=== PATIENT | female | born 1990 | race Caucasian/White ===

== ENCOUNTER 2017-11-08 16:00 | Outpatient (RCR) | payer OTHER, SELFPAY | END 2017-11-16 23:59 | LOC: NS 16:00 | PROVIDERS: Family Provider Family Medicine; PCP Family Medicine; Visit Provider Family Medicine | DX: E66.9 Obesity, unspecified (principal); Z68.29 Body mass index [BMI] 29.0-29.9, adult; Z71.3 Dietary counseling and surveillance | CPT/HCPCS: 97803 ==

== ENCOUNTER 2017-11-25 08:30 | Outpatient (RCR) | payer OTHER, SELFPAY | END 2017-12-14 23:59 | LOC: NS 08:30 | PROVIDERS: Family Provider Family Medicine; PCP Family Medicine; Visit Provider Family Medicine | DX: E66.9 Obesity, unspecified (principal); Z68.29 Body mass index [BMI] 29.0-29.9, adult; Z71.3 Dietary counseling and surveillance | CPT/HCPCS: 97803 ==

== ENCOUNTER 2018-01-10 17:25 | Outpatient (RCR) | payer OTHER, SELFPAY | END 2018-01-14 23:59 | LOC: NS 17:25 | PROVIDERS: Family Provider Family Medicine; PCP Family Medicine; Visit Provider Family Medicine | DX: E66.9 Obesity, unspecified (principal); Z68.29 Body mass index [BMI] 29.0-29.9, adult; Z71.3 Dietary counseling and surveillance | CPT/HCPCS: 97803 ==

== ENCOUNTER 2018-01-24 16:15 | Outpatient (RCR) | payer OTHER, SELFPAY | END 2018-02-13 23:59 | LOC: NS 16:15 | PROVIDERS: Family Provider Family Medicine; PCP Family Medicine; Visit Provider Family Medicine | DX: E66.9 Obesity, unspecified (principal); Z68.29 Body mass index [BMI] 29.0-29.9, adult; Z71.3 Dietary counseling and surveillance | CPT/HCPCS: 97803 ==

== ENCOUNTER 2018-02-15 17:34 | Outpatient (RCR) | payer OTHER, SELFPAY | END 2018-03-16 23:59 | LOC: NS 17:34 | PROVIDERS: Family Provider Family Medicine; PCP Family Medicine; Visit Provider Family Medicine | DX: E66.9 Obesity, unspecified (principal); Z68.29 Body mass index [BMI] 29.0-29.9, adult; Z71.3 Dietary counseling and surveillance | CPT/HCPCS: 97803 ==

== ENCOUNTER → 2018-04-17 11:42 | Outpatient (CLI) | payer OTHER, SELFPAY ==
[2018-04-17 15:59] LABS: Chlamydia Trachomatis by PCR Negative (Negative); Neisserai gonorrhoeae by PCR Negative (Negative); Probe Check PASS; Sample Adequacy Control PASS; Specimen Processing Control PASS
[2018-04-24 10:09] LABS: HPV Reflexed? NOT INDICATED
== END ==
PROVIDERS: Visit Provider Obstetrics & Gynecology
DX: Z12.4 Encounter for screening for malignant neoplasm of cervix (principal); Z11.3 Encounter for screening for infections with a predominantly sexual mode of transmission; Z12.72 Encounter for screening for malignant neoplasm of vagina
CPT/HCPCS: 87491; 87591; 88175; G0145

== ENCOUNTER → 2019-01-26 07:33 | Outpatient (CLI) | payer OTHER, SELFPAY ==
[2019-01-26 08:46] LABS: Absolute Lymphocyte Count 3.74 X10^3/ul (0.83-4.51); Absolute Neutrophil Count 5.8 X10^3/uL (2.0-7.7); Basophil# 0.02 X10^3/uL; Basophil% 0.2 % (0-1); Eosinophil# 0.27 X10^3/uL; Eosinophils% 2.5 % (0-5); Hematocrit 40.5 % (37-47); Hemoglobin 13.6 g/dl (12.0-15.0); Lymphocyte # 3.74 X10^3/ul (4.0); Lymphocyte % 35.2 % (19-41); Mean Corp Hgb Conc 33.6 g/gl (32-36); Mean Corpuscular Hgb 29.6 pg (27.0-32.0); Mean Corpuscular Volume 88.2 fL (81-99); Mean Platelet Vol. 9.1 fl (6.2-12.0); Monocyte# 0.78 X10^3/uL; Monocyte% 7.4 % (0-10); Neutrophil # 5.79 X10^3/uL (2.7-7.7); Neutrophil % 54.6 % (47-70); POSITIVE COUNT NO; POSITIVE DIFFERENTIAL NO; POSITIVE MORPHOLOGY NO; Platelet Count 267 K/mm3 (150-450); RBC Distribution Width CV 12.6 % (11.6-14.6); RBC Distribution Width SD 40.2 fl (35.1-43.9); Red Blood Count 4.59 M/mm3 (4.2-5.4); White Blood Count 10.6 K/mm3 (4.4-11.0)
[2019-01-26 09:15] LABS: Hemoglobin A1c 5.4 % (4.2-6.3)
[2019-01-26 09:21] LABS: ALB/GLOB Ratio 0.9 RATIO (0.9-2.4); AST(SGOT) 24 U/L (15-37); Alanine Aminotransfer ALT/SGPT 20 U/L (13-56); Albumin, Serum 3.3 g/dL (3.2-5.0); Alkaline Phosphatase 108 U/L (45-117); Anion Gap 8 (5-15); BUN 12 mg/dL (7-18); BUN/Creat Ratio 17.7 RATIO (10-20); Calcium,Total 8.6 mg/dL (8.5-10.1); Chloride 109 mmol/L (98-107); Cholesterol 196 mg/dL (200); Creatinine, Serum 0.68 mg/dL (0.55-1.02); EST Glomerular Filtration Rate 110 mL/min (>60); Est Glom Filt Rate - Afr Amer 133 mL/min (>60); Globulin 3.8 g/dL (2.2-4.2); Glucose 89 mg/dL (74-106); High Density Lipoprotein 61 mg/dL; Potassium 4.1 mmol/L (3.5-5.1); Protein, Total 7.1 g/dL (6.4-8.2); Sodium Level 141 mmol/L (136-145); Thyroid Stim Hormone (TSH) 2.43 uIU/mL (0.358-3.74); Triglycerides 119 mg/dL; Very Low Density Lipoprotein 24 mg/dL (5-40)
== END ==
PROVIDERS: Family Provider Family Medicine; PCP Family Medicine
DX: R53.82 Chronic fatigue, unspecified (principal); E66.9 Obesity, unspecified
CPT/HCPCS: 36415; 80053; 80061; 83036; 84443; 85025

== ENCOUNTER → 2019-04-18 16:56 | Outpatient (CLI) | payer OTHER, SELFPAY ==
[2019-04-12 06:47] VITALS: BMI 25.8
[2019-04-18 20:13] LABS: Chlamydia Trachomatis by PCR Negative (Negative); Neisserai gonorrhoeae by PCR Negative (Negative); Probe Check PASS; Sample Adequacy Control PASS; Specimen Processing Control PASS
[2019-04-25 12:39] LABS: HPV APTIMA, High Risk Negative (Negative)
[2019-05-18 13:48] LABS: HPV Reflexed? YES, CHARGE PATIENT
== END ==
PROVIDERS: Family Provider Family Medicine; PCP Family Medicine; Visit Provider Obstetrics & Gynecology
DX: Z12.4 Encounter for screening for malignant neoplasm of cervix (principal); Z11.3 Encounter for screening for infections with a predominantly sexual mode of transmission
CPT/HCPCS: 87491; 87591; 87624; 88175; G0145

== ENCOUNTER → 2019-06-29 17:50 | Outpatient (CLI) | payer OTHER, SELFPAY ==
[2019-04-12 06:47] VITALS: BMI 25.8
[2019-06-29 19:46] LABS: Chlamydia Trachomatis by PCR Negative (Negative); Neisserai gonorrhoeae by PCR Negative (Negative); Probe Check PASS; Sample Adequacy Control PASS; Specimen Processing Control PASS
== END ==
PROVIDERS: Family Provider Family Medicine; PCP Family Medicine; Referring Provider Obstetrics & Gynecology; Visit Provider Obstetrics & Gynecology
DX: Z11.3 Encounter for screening for infections with a predominantly sexual mode of transmission (principal)
CPT/HCPCS: 87491; 87591

== ENCOUNTER → 2019-09-17 12:28 | Outpatient (CLI) | payer OTHER, SELFPAY ==
[2019-04-12 06:47] VITALS: BMI 25.8
[2019-09-17 12:46] LABS: Absolute Lymphocyte Count 3.46 X10^3/uL (0.83-4.51); Absolute Neutrophil Count 4.6 X10^3/uL (2.0-7.7); Basophil# 0.02 X10^3/uL; Basophil% 0.2 % (0-1); Eosinophil# 0.21 X10^3/uL; Eosinophils% 2.3 % (0-5); Hematocrit 40.7 % (37-47); Hemoglobin 13.5 g/dL (12.0-15.0); Lymphocyte # 3.46 X10^3/ul (4.0); Lymphocyte % 38.3 % (19-41); Mean Corp Hgb Conc 33.2 g/dL (32-36); Mean Corpuscular Hgb 28.8 pg (27.0-32.0); Mean Platelet Vol. 8.7 fl (6.2-12.0); Monocyte# 0.76 X10^3/uL; Monocyte% 8.4 % (0-10); NRBC Flagged by Analyzer 0 % (0-5); Neutrophil # 4.56 X10^3/uL (2.7-7.7); Neutrophil % 50.6 % (47-70); Platelet Count 268 K/mm3 (150-450); RBC Distribution Width CV 11.7 % (11.6-14.6); RBC Distribution Width SD 36.9 fl (35.1-43.9); Red Blood Count 4.68 M/mm3 (4.2-5.4)
[2019-09-17 13:01] LABS: AST(SGOT) 28 U/L (15-37); Alanine Aminotransfer ALT/SGPT 20 U/L (13-56); Albumin, Serum 3.9 g/dL (3.2-5.0); Alkaline Phosphatase 137 U/L (45-117); Anion Gap 6 (5-15); BUN 13 mg/dL (7-18); BUN/Creat Ratio 14.2 RATIO (10-20); Calcium,Total 9.1 mg/dL (8.5-10.1); Chloride 108 mmol/L (98-107); Creatinine, Serum 0.92 mg/dL (0.55-1.02); EST Glomerular Filtration Rate 77 mL/min (>60); Est Glom Filt Rate - Afr Amer 93 mL/min (>60); Globulin 3.9 g/dL (2.2-4.2); Glucose 87 mg/dL (74-106); Lipase 114 U/L (73-393); Potassium 3.6 mmol/L (3.5-5.1); Protein, Total 7.8 g/dL (6.4-8.2); Sodium Level 139 mmol/L (136-145)
== END ==
PROVIDERS: Family Provider Family Medicine; PCP Family Medicine; Referring Provider Family Medicine; Visit Provider Family Medicine
DX: R10.9 Unspecified abdominal pain (principal); R11.2 Nausea with vomiting, unspecified
CPT/HCPCS: 36415; 80053; 83690; 85025

== ENCOUNTER → 2019-09-18 16:05 | Outpatient (CLI) | payer OTHER, SELFPAY ==
[2019-04-12 06:47] VITALS: BMI 25.8
--- NOTE | 2019-09-18 16:07 | US_ITS ---
STUDY: ABDOMINAL ULTRASOUND - RIGHT UPPER QUADRANT REASON FOR VISIT: Female, 29 years old epigastric and periumbilical pain 1-2 weeks. TECHNIQUE: Ultrasound evaluation of the right upper quadrant was performed with real-time and static luna-scale imaging. TECHNICAL QUALITY: Adequate. COMPARISON: None. FINDINGS: Liver: The liver measures 13.4 cm. Increased echogenicity of the liver parenchyma due to fatty infiltration. The bile ducts are within normal limits. There is hepatic color flow. The direction of portal flow is hepatopetal. There is no demonstrated mass lesion. Gallbladder: Normal distended gallbladder. The gallbladder wall measures 1.9 mm. There is a negative sonographic Rico's sign. There is no pericholecystic fluid. There are no gallstones. Common Bile Duct (C.B.D.): The common bile duct measures 2.7 mm. Pancreas: Normal size of the head, body and tail of the pancreas. There is normal echogenicity of the pancreas. There is no demonstrated pancreatic mass or cyst. The pancreatic duct is not dilated. Right Kidney: Normal size of the right kidney. The right kidney measures 11.6 x 5.0 x 4.7 cm. Normal renal cortex. The right cortex measures 1.2 cm. There is no demonstrated renal mass or cyst. There is no right hydronephrosis. US/Abdomen Limited IMPRESSION: 1. Mild diffuse hepatic pseudoptosis. 2. Normal ultrasound of the gallbladder, pancreas and right kidney. Electronically Signed: Zach Guy MD at 16:22 EST , Service support ,
== END ==
PROVIDERS: Family Provider Family Medicine; PCP Family Medicine; Referring Provider Family Medicine; Visit Provider Family Medicine
DX: R10.9 Unspecified abdominal pain (principal); R11.2 Nausea with vomiting, unspecified; R74.8 Abnormal levels of other serum enzymes
CPT/HCPCS: 76705

== ENCOUNTER → 2020-06-09 16:48 | Outpatient (CLI) | payer OTHER, SELFPAY ==
[2020-06-09 11:15] VITALS: BMI 25.8
[2020-06-12 03:06] LABS: Chlamydia By Nucleic Acid AMP Negative (Negative)
[2020-06-12 08:32] LABS: Gonococcus By Nucleic Acid AMP Negative (Negative)
== END ==
PROVIDERS: PCP Family Medicine; Visit Provider Obstetrics & Gynecology
DX: Z11.3 Encounter for screening for infections with a predominantly sexual mode of transmission (principal)
CPT/HCPCS: 87491; 87591

== ENCOUNTER → 2021-03-13 07:55 | Outpatient (CLI) | payer OTHER, SELFPAY ==
[2020-06-09 11:15] VITALS: BMI 25.8
[2021-03-13 08:52] LABS: Absolute Lymphocyte Count 3.32 X10^3/uL (0.83-4.51); Absolute Neutrophil Count 6.2 X10^3/uL (2.0-7.7); Basophil# 0.05 X10^3/uL; Basophil% 0.5 % (0-1); Eosinophil# 0.31 X10^3/uL; Hematocrit 41.9 % (37-47); Hemoglobin 12.7 g/dL (12.0-15.0); Lymphocyte # 3.32 X10^3/ul (0.83-4.51); Lymphocyte % 31.9 % (19-41); Mean Corp Hgb Conc 30.3 g/dL (32-36); Mean Corpuscular Hgb 25.1 pg (27.0-32.0); Mean Corpuscular Volume 82.8 fL (81-99); Mean Platelet Vol. 9.5 fl (6.2-12.0); Monocyte# 0.45 X10^3/uL; Monocyte% 4.3 % (0-10); NRBC Flagged by Analyzer 0 % (0-5); Neutrophil # 6.24 X10^3/uL (2.7-7.7); Neutrophil % 59.9 % (47-70); Platelet Count 325 K/mm3 (150-450); RBC Distribution Width CV 14.9 % (11.6-14.6); RBC Distribution Width SD 45.5 fl (35.1-43.9); Red Blood Count 5.06 M/mm3 (4.2-5.4); White Blood Count 10.4 K/mm3 (4.4-11.0)
[2021-03-13 09:29] LABS: ALB/GLOB Ratio 0.7 RATIO (0.9-2.4); AST(SGOT) 18 U/L (15-37); Alanine Aminotransfer ALT/SGPT 13 U/L (13-56); Albumin, Serum 3.2 g/dL (3.2-5.0); Alkaline Phosphatase 128 U/L (45-117); Anion Gap 7 (5-15); BUN 12 mg/dL (7-18); BUN/Creat Ratio 14.8 RATIO (10-20); Calcium,Total 8.9 mg/dL (8.5-10.1); Chloride 106 mmol/L (98-107); Creatinine, Serum 0.81 mg/dL (0.55-1.02); EST Glomerular Filtration Rate 88 mL/min (>60); Est Glom Filt Rate - Afr Amer 106 mL/min (>60); Free T3 2.5 pg/mL (2.18-3.98); Globulin 4.6 g/dL (2.2-4.2); Glucose 106 mg/dL (74-106); Potassium 3.9 mmol/L (3.5-5.1); Protein, Total 7.8 g/dL (6.4-8.2); Sodium Level 138 mmol/L (136-145); Thyroid Stim Hormone (TSH) 2.24 uIU/mL (0.358-3.74)
== END ==
PROVIDERS: PCP Family Medicine; Referring Provider Family Medicine; Visit Provider Family Medicine
DX: Z51.81 Encounter for therapeutic drug level monitoring (principal); R53.83 Other fatigue
CPT/HCPCS: 36415; 80053; 84439; 84443; 84481; 85025

== ENCOUNTER → 2021-09-11 11:31 | Outpatient (CLI) | payer OTHER, SELFPAY ==
--- NOTE | 2021-09-11 11:36 | RAD_ITS ---
INDICATION: ABD PAIN EXAMINATION/TECHNIQUE: X-RAY - XR Abdomen 1 View COMPARISON: None FINDINGS: BOWEL GAS PATTERN: Normal nonobstructive bowel gas pattern. No bowel or stomach distention. FREE AIR: Not assessed on a single supine view. CALCIFICATIONS: No abnormal calcifications observed. LOWER CHEST: Not included in the [id number]-[id number] BONES AND SOFT TISSUES: No acute pathology. RAD/Abdomen Single View IMPRESSION: Normal nonobstructive bowel gas pattern with no acute findings. Electronically Signed: Husesin Sen MD at 12:49 EST Tel , Service support ,
[2021-09-11 13:37] LABS: Absolute Lymphocyte Count 2.76 X10^3/uL (0.83-4.51); Absolute Neutrophil Count 7.3 X10^3/uL (2.0-7.7); Basophil# 0.04 X10^3/uL; Basophil% 0.4 % (0-1); Eosinophil# 0.14 X10^3/uL; Eosinophils% 1.3 % (0-5); Hematocrit 43.2 % (37-47); Hemoglobin 14.1 g/dL (12.0-15.0); Lymphocyte # 2.76 X10^3/ul (0.83-4.51); Lymphocyte % 25.3 % (19-41); Mean Corp Hgb Conc 32.6 g/dL (32-36); Mean Corpuscular Hgb 28.5 pg (27.0-32.0); Mean Corpuscular Volume 87.3 fL (81-99); Mean Platelet Vol. 9.7 fl (6.2-12.0); Monocyte# 0.62 X10^3/uL; Monocyte% 5.7 % (0-10); NRBC Flagged by Analyzer 0 % (0-5); Neutrophil # 7.33 X10^3/uL (2.7-7.7); Neutrophil % 66.9 % (47-70); Platelet Count 324 K/mm3 (150-450); RBC Distribution Width CV 12.8 % (11.6-14.6); RBC Distribution Width SD 40.9 fl (35.1-43.9); Red Blood Count 4.95 M/mm3 (4.2-5.4); White Blood Count 10.9 K/mm3 (4.4-11.0)
[2021-09-11 13:44] LABS: Internal QC Validated? YES +Cl - CLEAR BKGD; Pregnancy, Serum, hCG Quali. NEGATIVE Negative
[2021-09-11 14:05] LABS: ALB/GLOB Ratio 0.7 RATIO (0.9-2.4); AST(SGOT) 29 U/L (15-37); Alanine Aminotransfer ALT/SGPT 22 U/L (13-56); Albumin, Serum 3.3 g/dL (3.2-5.0); Alkaline Phosphatase 126 U/L (45-117); Anion Gap 9 (5-15); BUN 11 mg/dL (7-18); BUN/Creat Ratio 11.7 RATIO (10-20); Chloride 106 mmol/L (98-107); Creatinine, Serum 0.94 mg/dL (0.55-1.02); EST Glomerular Filtration Rate 74 mL/min (>60); Est Glom Filt Rate - Afr Amer 89 mL/min (>60); Free T3 2.5 pg/mL (2.18-3.98); Globulin 4.6 g/dL (2.2-4.2); Glucose 93 mg/dL (74-106); Lipase 70 U/L (73-393); Magnesium 2.4 mg/dL (1.6-2.6); Potassium 3.9 mmol/L (3.5-5.1); Protein, Total 7.9 g/dL (6.4-8.2); Sodium Level 139 mmol/L (136-145); T4 Free Direct 1.13 ng/dL (0.76-1.46); Thyroid Stim Hormone (TSH) 1.28 uIU/mL (0.358-3.74)
== END ==
PROVIDERS: PCP Family Medicine; Referring Provider Family Medicine; Visit Provider Family Medicine
DX: R10.9 Unspecified abdominal pain (principal); R19.7 Diarrhea, unspecified; R51.9 Headache, unspecified; R53.83 Other fatigue
CPT/HCPCS: 36415; 74018; 80053; 83690; 83735; 84439; 84443; 84481; 84703; 85025

== ENCOUNTER → 2021-09-21 09:51 | Outpatient (CLI) | payer OTHER, SELFPAY ==
--- NOTE | 2021-09-21 09:53 | US_ITS ---
STUDY: ABDOMINAL ULTRASOUND REASON FOR EXAM: Female, 31 years old. ABD PAIN / RUQ PAIN TECHNIQUE: Transabdominal ultrasound was performed with real-time and static luna scale imaging. TECHNICAL QUALITY: Adequate. COMPARISON: Comparison is made with prior study dated 09/18/2019. FINDINGS: Liver: The liver measures 15.1 cm. There is normal echogenicity of the liver. The bile ducts are within normal limits. There is hepatic color flow. The direction of portal flow is hepatopetal. There is no demonstrated mass lesion. Gallbladder: Normal distended gallbladder. The gallbladder wall measures 1.6 mm. There is a negative sonographic Rico''s sign. There is no pericholecystic fluid. There are no gallstones. Common Bile Duct (C.B.D.): The common bile duct measures 1.5 mm. Pancreas: Normal size of the head, body and tail of the pancreas. There is normal echogenicity of the pancreas. There is no demonstrated pancreatic mass or cyst. Spleen: Normal size of the spleen. The spleen measures 10.6 cm x 5.6 cm x 5 cm. Right Kidney: Normal size of the right kidney. The right kidney measures 10.8 cm x 5.4 cm x 5.7 cm. Normal renal cortex. The right cortex measures 1.2 cm. There is no demonstrated renal mass or cyst. There is no right hydronephrosis. Left Kidney: Normal size of the left kidney. The left kidney measures 10.8 cm x 5.4 cm x 5.7 cm. Normal renal cortex. The left cortex measures 1.4 cm. There is no demonstrated renal mass or cyst. There is no left hydronephrosis. Aorta: Unremarkable. I.V.C.: The IVC is patent. There is no ascites. US/Abdomen Complete IMPRESSION: Normal abdominal ultrasound examination. Electronically Signed: Yonathan Flores MD at 12:47 EST , Service support ,
== END ==
PROVIDERS: PCP Family Medicine; Referring Provider Family Medicine; Visit Provider Family Medicine
DX: R10.11 Right upper quadrant pain (principal); R10.13 Epigastric pain; R10.12 Left upper quadrant pain
CPT/HCPCS: 76700

== ENCOUNTER → 2021-09-22 08:43 | Outpatient (CLI) | payer OTHER, SELFPAY ==
[2021-09-22 09:33] LABS: Erythrocyte Sedimentation Rate 18 mm/hr (0-30)
[2021-09-22 09:49] LABS: ALB/GLOB Ratio 0.7 RATIO (0.9-2.4); AST(SGOT) 27 U/L (15-37); Alanine Aminotransfer ALT/SGPT 22 U/L (13-56); Albumin, Serum 3.4 g/dL (3.2-5.0); Alkaline Phosphatase 124 U/L (45-117); Anion Gap 8 (5-15); BUN 11 mg/dL (7-18); BUN/Creat Ratio 12.1 RATIO (10-20); Calcium,Total 9.1 mg/dL (8.5-10.1); Chloride 109 mmol/L (98-107); Creatinine, Serum 0.91 mg/dL (0.55-1.02); EST Glomerular Filtration Rate 77 mL/min (>60); Est Glom Filt Rate - Afr Amer 93 mL/min (>60); Globulin 4.6 g/dL (2.2-4.2); Glucose 101 mg/dL (74-106); LDH 152 U/L (84-246); Sodium Level 139 mmol/L (136-145)
[2021-09-23 14:52] LABS: Anti-Mitochondrial AB <20.0 Units (0.0-20.0)
== END ==
PROVIDERS: PCP Family Medicine; Visit Provider Internal Medicine Gastroenterology
DX: R10.9 Unspecified abdominal pain (principal)
CPT/HCPCS: 36415; 80053; 83516; 83615; 85652; 86140

== ENCOUNTER → 2021-09-28 07:53 | Outpatient (CLI) | payer OTHER, SELFPAY ==
--- NOTE | 2021-09-28 10:18 | CT_ITS ---
STUDY: CT ABDOMEN AND PELVIS WITH CONTRAST REASON FOR EXAM: Female, 31 years old. Abdominal pain RADIATION DOSAGE (If Supplied By Facility): CTDIvol = ( 16.41 ) mGy, DLP = ( 1330.10 ) mGycm TECHNIQUE: Transaxial images were obtained from the dome of the diaphragm to the symphysis pubis with oral contrast. Oral and amp; IV Gastrografin and amp; 100mL Isovue-370 was administered. Sagittal and coronal images were reconstructed. Individualized dose optimization techniques were used for this CT. COMPARISON: None. FINDINGS: The visualized lung bases are unremarkable. The visualized portions of the heart are within normal limits. Normal liver. Normal gallbladder and extrahepatic biliary system. Normal spleen. Normal pancreas. Normal bilateral adrenal glands. Normal right kidney. Normal left kidney. Normal visualized stomach. Normal small intestine. Normal colon. The appendix is visualized and appears normal. Normal abdominal aorta. Normal inferior vena cava. Normal retroperitoneum. Normal urinary bladder. Normal abdominal wall. Normal osseous structures. CT/Abdomen/Pelvis WITH Contrast IMPRESSION: Normal enhanced CT of the abdomen and pelvis. Electronically Signed: Yonathan Flores MD at 11:11 EST , Service support ,
== END ==
PROVIDERS: PCP Family Medicine; Referring Provider Internal Medicine Gastroenterology; Visit Provider Internal Medicine Gastroenterology
DX: R10.9 Unspecified abdominal pain (principal)
CPT/HCPCS: 74177; Q9967

== ENCOUNTER 2021-09-29 05:31 | Day surgery (SDC) | payer OTHER, SELFPAY ==
--- NOTE | 2021-09-29 | COLBX_PTH ---
PATIENT: MIRELA DRIVER LOC: EN U#:[id number] AGE/SX: 31/F ROOM: RE09/29/[address]: Dr. Earle Saunders DO : 1990 BED: DIS: 09/29/2021 SPEC #: [id number] RECD: 09/29/21 09:47 STATUS: LINDA RERafat #: [id number] SHERRI: 09/29/21 00:[address]: Earle Saunders DEPT: SURGICAL PATHOLOGY RECD BY: Kam Montes ENTERED: 09/29/21 10:33 SP TYPE: COLON BX OTHR DR: Dr. Subha Mcmahon DO Tissues: A - Duodenum, NOS B - Gastric mucous membrane C - Esophageal mucous membrane D - Esophageal mucous membrane Procedures: Special Stain Group II Surgery Specimen Level IV Alcian Blue/PAS (control) HEADER OPERATION: EGD ([facility] [place]) PRE-OP DIAGNOSIS: Chronic abdominal pain TISSUE SUBMITTED: A ? Duodenum biopsy, B ? Gastric antrum biopsy, C ? Distal esophagus biopsy, D ? Proximal esophagus biopsy MICROSCOPIC DIAGNOSIS A. Duodenum, biopsy: Focal gastric metaplasia. B. Gastric antrum, biopsy: Chronic gastritis. See comment. C. Distal esophagus, biopsy: Gastroesophageal junctional mucosa with mild chronic inflammation. No evidence of goblet cell metaplasia. Focal changes of reflux. See comment. D. Proximal esophagus, biopsy: Gastroesophageal junctional mucosa with chronic inflammation. No evidence of goblet cell metaplasia. See comment. AM:bronwyn 09/30/2021 COMMENT B. The results of immunohistochemistry for Helicobacter pylori will be reported separately ([id number]). C. Alcian blue/PAS stain with matched control supports the above diagnosis. There is a small fragment of benign small bowel/duodenal mucosa present. Clinical correlation is suggested. D. Alcian blue/PAS stain with matched control supports the above diagnosis. MICROSCOPIC DESCRIPTION Slides are reviewed. GROSS DESCRIPTION A - Received in fixative is one container labeled with the patient's name and designated duodenum. The specimen consists of multiple irregular fragments of light noriega soft tissue that in aggregate measure 1.5 x 0.5 x 0.1 cm. The specimen is totally submitted in one cassette. B - Received in fixative is one container labeled with the patient's name and designated gastric antrum biopsy. The specimen consists of multiple irregular fragments of light noriega soft tissue that in aggregate measure 0.6 x 0.3 x 0.1 cm. The specimen is totally submitted in one cassette. C - Received in fixative is one container labeled with the patient's name and designated distal esophagus biopsy. The specimen consists of multiple irregular fragments of light noriega soft tissue that in aggregate measure 0.7 x 0.5 x 0.1 cm. The specimen is totally submitted in one cassette. D - Received in fixative is one container labeled with the patient's name and designated proximal esophagus biopsy. The specimen consists of two irregular fragments of light noriega soft tissue that in aggregate measure 0.5 x 0.5 x 0.1 cm. The specimen is totally submitted in one cassette. / AM:bronwyn 09/29/21 TC:3 CPT: 51004 x4, 25650 x2
[2021-09-29 05:58] VITALS: BP 125/71; PULSE 79; RESP 18; TEMP 35.9; O2SAT 98; BMI 37.4
[2021-09-29 06:00] LABS: Internal QC Validated? YES +Cl - CLEAR BKGD; Pregnancy, Urine Negative Negative
[2021-09-29] MEDS: Lactated Ringers 1,000 ML 15 ML IV (06:11)
--- NOTE | 2021-09-29 06:30 | IMM_PTH ---
PATIENT: MIRELA DRIVER LOC: EN U#:[id number] AGE/SX: 31/F ROOM: RE09/29/[address]: Dr. Earle Saunders DO : 1990 BED: DIS: 09/29/2021 SPEC #: [id number] RECD: 09/29/21 10:28 STATUS: LINDA REQ #: [id number] SHERRI: 09/29/21 06:[address]: Earle Saunders DEPT: IMMUNOHISTOCHEMISTRY RECD BY: Jenny Srinivasan ENTERED: 09/29/21 10:28 SP TYPE: IMMUNO OTHR DR: Dr. Subha Mcmahon DO Tissues: B - Stomach, NOS Procedures: H Pylori (initial) PHYSICIAN & INSTITUTION [place] [address] SPECIMEN INFORMATION: Tissue Source: B ? Gastric antrum biopsy Clinical Info: Chronic abdominal pain Specimen Number: [id number] CPT code: 66746 METHODOLOGY: Deparaffinized sections of prefer/formalin-fixed tissue or PAP/DQ stained slides are incubated with monoclonal/polyclonal antibodies/oligonucleotide probes. Localization is made via biotin free immunoperoxidase method. Appropriate controls are performed and reacted as expected. Results on target cell population are indicated in the following table: RESULTS: ANTIBODY / CLONE RESULT Block B H Pylori (polyclonal) negative These tests were developed and their performance characteristics determined by [facility]. They may not have been cleared or approved by the U.S. Food and Drug Administration. The FDA has determined that such clearance or approval is not necessary. INTERPRETATION: B. Gastric antrum, biopsy: Negative for Helicobacter pylori organisms. AM:bronwyn 09/30/2021
--- NOTE | 2021-09-29 06:34 | PCM.HP.BLA ---
History and Physical Date of Admission: 09/29/21 Details: MIRELA DRIVER, is a 31 F who presents to the office today for evaluation of constant nausea. She does have history of migraines. She does suffer from depression and is on 2 antidepression medicines. The only medicine that she had recently changed was Abilify which was added to her Lexapro. She also suffers from frequent headaches that she takes [id number] pain medicine for the headaches. For the last 2-2.5 months she has been having difficulty with abdominal pain, decreased appetite, diarrhea, nausea and vomiting. She is not , confirmed with testing. Has been going on without change in intensity or frequency. Denies this occurring prior. PCP seen and prescribed Nexium and dicyclomine late last week. Nexium has not helped. She has not started dicyclomine because she was told it would make her sleepy and forgets to take it prior to bed. Last bloodwork performed 09/11/21 with abnormal including Lipase (low 70), alkaline phosphatase (high 126), globulin (high 4.6), albumin/globulin ratio (low 0.7). Abdominal US performed 09/21/21 ? liver measurement 15.1. Gallbladder normal distended. KUB Xray performed 09/11/21 ? unremarkable ROS Const Constitutional: Positive for fatigue ENT ENT: Positive for sore throat Gastro GI: Positive for abdominal pain, diarrhea, nausea/dyspepsia and vomiting Psych Psychiatric: Positive for anxiety and Positive for depression Endo Endocrine: Positive for fatigue Exam Const General: cooperative and comfortable Nutritional Appearance: average body habitus and well nourished [facility] Head: normal to inspection Ears: hearing grossly normal bilaterally Nose: external nose normal Face and sinus: normal facial exam Mouth: oral mucosae normal Throat: posterior oropharynx normal Eyes General: appearance normal, both eyes and all related structures Neck Neck: normal visual inspection Chest Chest palpation & inspection: normal inspection of the chest and normal palpation of entire chest wall Resp Effort & Inspection: normal respiratory effort Auscultation: Bilateral: Clear to Auscultation Cardio Palpation: normal PMI Rate: regular rate Rhythm: regular rhythm GI Inspection: normal to inspection Auscultation: normal bowel sounds Percussion: normal to percussion Palpation: no hepatosplenomegaly Skin General: no rashes or lesions noted Neuro General: patient alert Extrem General: normal to inspection Psych Affect: normal affect Quality Reporting Tobacco Screening ([facility] [address]) Smoking Status: Never smoker Assessment and Plan Assessment and Plan (1) Chronic abdominal pain: Orders: Orders: CRP Today LDH Today Erythrocyte Sed Rate Today Anti-Mitochondrial AB Today CT Abd/Pelvis W/WO Contrast Today Comprehensive Metabolic Profil Today H. PYLORI STOOL AG Today Plan - Dr. Og Friend, DO: Differential diagnosis for chronic abdominal pain would be H. pylori associated gastritis or gastric ulcers. NSAID induced peptic ulcers, gastritis or duodenitis. This could also be functional abdominal pain. There are instances in which he can develop gastroparesis associated with headaches. This is also the differential diagnosis. I will give her a misoprostol . I explained to her that I would normally not give her this medicine, but she is on control. She should use barrier method also for control along with regular oral medicine that she take for control. She said that she has been on this since the age of 16. I expressed to her that she cannot get on this medicine. (2) Abdominal pain: Status: Acute Orders: Orders: CRP Today LDH Today Erythrocyte Sed Rate Today Anti-Mitochondrial AB Today CT Abd/Pelvis W/WO Contrast Today Comprehensive Metabolic Profil Today H. PYLORI STOOL AG Today Plan - Dr. Og Friend, DO: We will also check a CRP, ESR, LDH, CT scan abdomen pelvis, H. pylori stool antigen and comprehensive metabolic profile due to the fact that her alkaline phosphatase has been elevated. We will also schedule an upper endoscopy to evaluate her GI tract. Along with increasing her Nexium to twice a day. Plan Details Other Medications: New: scopolamine base 1 patch transdermal Q3D PRN 4 ea 3RF nausea and vomiting misoprostol 100 mcg PO QPCHS 30 days 120 tabs 0RF I have re-examined the patient. There are no clinical changes since date of exam.
[2021-09-29 07:10] VITALS: BP 120/66; BP 125/71; PULSE 65; RESP 16; TEMP 35.9; O2SAT 99
--- NOTE | 2021-09-29 07:11 | OP.EGD_ITS ---
Patient Name: Madelyn Martinez Procedure Date: 09/29/2021 6:07 AM Date of : 1990 Age: 31 Procedure: Upper GI endoscopy Indications: Epigastric abdominal pain Providers: Earle Saunders DO Medicines: See the Anesthesia note for documentation of the administered medications Patient Profile: This is a 31 year old female. Refer to note in patient chart for documentation of history and physical. Patient has symptoms. Complications: No immediate complications. Procedure: Pre-Anesthesia Assessment: - Prior to the procedure, a History and Physical was performed, and patient medications and allergies were reviewed. The patient is competent. The risks and benefits of the procedure and the sedation options and risks were discussed with the patient. All questions were answered and informed consent was obtained. Patient identification and proposed procedure were verified by the physician in the pre-procedure area. Mental Status Examination: alert and oriented. Airway Examination: normal oropharyngeal airway and neck mobility. CV Examination: normal. Prophylactic Antibiotics: The patient does not require prophylactic antibiotics. Prior Anticoagulants: The patient has taken no previous anticoagulant or antiplatelet agents. After reviewing the risks and benefits, the patient was deemed in satisfactory condition to undergo the procedure. The anesthesia plan was to use moderate sedation / analgesia (conscious sedation). Immediately prior to administration of medications, the patient was re-assessed for adequacy to receive sedatives. The heart rate, respiratory rate, oxygen saturations, blood pressure, adequacy of pulmonary ventilation, and response to care were monitored throughout the procedure. The physical status of the patient was re-assessed after the procedure. After obtaining informed consent, the endoscope was passed under direct vision. Throughout the procedure, the patient's blood pressure, pulse, and oxygen saturations were monitored continuously. The gastroscope was introduced through the mouth, and advanced to the second part of duodenum. The upper GI endoscopy was accomplished without difficulty. The patient tolerated the procedure well. Moderate Sedation: Moderate (conscious) sedation was administered by the endoscopy nurse and supervised by the endoscopist. The patient's oxygen saturation, heart rate, blood pressure and response to care were monitored. Total physician intraservice time was 15 minutes. Scope In: 6:55:32 AM Scope Out: 7:04:57 AM Total Procedure Duration Time 0 hours 9 minutes 25 seconds Findings: LA Grade A (one or more mucosal breaks less than 5 mm, not extending between tops of 2 mucosal folds) esophagitis with no bleeding was found 34 to 35 cm from the incisors. Biopsies were taken with a cold forceps for histology. Verification of patient identification for the specimen was done. Estimated blood loss was minimal. Gastric inlet patch seen in the proximal esophagus. It was approximately 2 cm long and was biopsied. Biopsies were taken with a cold forceps for histology. Verification of patient identification for the specimen was done. Estimated blood loss was minimal. Patchy mildly erythematous mucosa without bleeding was found in the gastric antrum. Biopsies were taken with a cold forceps for histology. Verification of patient identification for the specimen was done. Estimated blood loss was minimal. Patchy mildly erythematous mucosa without active bleeding and with no stigmata of bleeding was found in the duodenal bulb. Biopsies for histology were taken with a cold forceps for evaluation of celiac disease. Estimated blood loss: none. Impression: - LA Grade A reflux esophagitis. Biopsied. Recommendation: - Written discharge instructions were provided to the patient. - The signs and symptoms of potential delayed complications were discussed with the patient. - Patient has a contact number available for emergencies. - Return to normal activities tomorrow. - Resume previous diet. - Continue present medications. - Await pathology results. - No repeat upper endoscopy. - Return to GI office in 2 weeks. Procedure Code(s): --- Professional --- 92243, Esophagogastroduodenoscopy, flexible, transoral; with biopsy, single or multiple 91434, 59, Moderate sedation services provided by the same physician or other qualified health janitor caretaker performing the diagnostic or therapeutic service that the sedation supports, requiring the presence of an independent trained observer to assist in the monitoring of the patient's level of consciousness and physiological status; initial 15 minutes of intraservice time, patient age 5 years or older CPT copyright 2017 [employer]. All rights reserved. The codes documented in this report are preliminary and upon electronics warfare technician review may be revised to meet current compliance requirements. Earle Saunders DO 09/29/2021 7:11:23 AM This report has been signed electronically. Number of Addenda: 1 Note Initiated On: 09/29/2021 6:07 AM Addendum Number: 1 Addendum Date: 06/23/2022 7:10:10 AM MAC was used instead of moderate sedation for the patient. Earle Saunders DO 06/23/2022 7:10:14 AM This report has been signed electronically.
--- NOTE | 2021-09-29 07:12 | OP.CCLET_ITS ---
06/23/2022 Subha Mcmahon [address] [place] [address] Re : Upper GI endoscopy procedure for Madelyn Martinez Dear Dr. Mcmahon This procedure was performed on Wednesday, September 29, 2021. My impressions and recommendations are as follows: Impressions : - LA Grade A reflux esophagitis. Biopsied. Recommendations : - Written discharge instructions were provided to the patient. - The signs and symptoms of potential delayed complications were discussed with the patient. - Patient has a contact number available for emergencies. - Return to normal activities tomorrow. - Resume previous diet. - Continue present medications. - Await pathology results. - No repeat upper endoscopy. - Return to GI office in 2 weeks. My findings are described in the full procedure note, which is enclosed. If I can be of further assistance, please feel free to contact me at . Sincerely, Earle Saunders, 09/29/2021 7:11:23 AM This report has been signed electronically.
[2021-09-29 07:15] VITALS: BP 116/68; BP 125/71; PULSE 67; RESP 16; O2SAT 98
[2021-09-29 07:20] VITALS: BP 125/71; BP 125/74; PULSE 72; RESP 18; O2SAT 99
[2021-09-29 07:25] VITALS: BP 125/69; BP 125/71; PULSE 65; RESP 14; TEMP 36.1; O2SAT 99
[2021-09-29 07:37] VITALS: BP 125/71
== END 2021-09-29 08:10 ==
LOC: EN 05:35 → AC 05:35
PROVIDERS: Anesthesiology; PCP Family Medicine; Referring Provider Family Medicine; Visit Provider Internal Medicine Gastroenterology
PROC: 0DJ08ZZ Inspection of Upper Intestinal Tract, Via Natural or Artificial Opening Endoscopic (ICD-10-PCS; CPT 43235; principal; 2021-09-29 06:25)
DX: K29.50 Unspecified chronic gastritis without bleeding (principal); K21.00 Gastro-esophageal reflux disease with esophagitis, without bleeding; R53.83 Other fatigue; F32.9 Major depressive disorder, single episode, unspecified; J02.9 Acute pharyngitis, unspecified; F41.9 Anxiety disorder, unspecified; Z79.3 Long term (current) use of hormonal contraceptives
CPT/HCPCS: 43239; 81025; 88305; 88313; 88342; J7120; J2405

== ENCOUNTER → 2022-07-29 | Outpatient (CLI) | payer OTHER, SELFPAY ==
[2022-08-04 11:16] LABS: HPV APTIMA, High Risk Negative (Negative)
== END | disposition home or self-care (01) ==
LOC: LABSPEC 11:02
PROVIDERS: PCP Family Medicine; Visit Provider Obstetrics & Gynecology
DX: Z12.4 Encounter for screening for malignant neoplasm of cervix (principal)
CPT/HCPCS: 87624; 88175; G0145

== ENCOUNTER → 2023-08-08 | Outpatient (CLI) | payer OTHER, SELFPAY ==
[2023-08-11 08:12] LABS: Chlamydia By Nucleic Acid AMP Negative (Negative); Gonococcus By Nucleic Acid AMP Negative (Negative)
[2023-08-12 12:08] LABS: HPV APTIMA, High Risk Negative (Negative)
== END | disposition home or self-care (01) ==
LOC: LABSPEC 15:59
PROVIDERS: PCP Family Medicine; Referring Provider Obstetrics & Gynecology; Visit Provider Obstetrics & Gynecology
DX: Z11.3 Encounter for screening for infections with a predominantly sexual mode of transmission (principal); N89.8 Other specified noninflammatory disorders of vagina; Z12.4 Encounter for screening for malignant neoplasm of cervix
CPT/HCPCS: 87070; 87205; 87491; 87591; 87624; 88175; G0145

== ENCOUNTER 2023-09-14 05:50 | Day surgery (SDC) | payer OTHER, SELFPAY ==
--- NOTE | 2023-09-14 | EGD_PTH ---
PATIENT: MIRELA DRIVER LOC: EN U#:[id number] AGE/SX: 33/F ROOM: RE09/14/[address]: Dr. Earle Saunders DO : 1990 BED: DIS: 09/14/2023 SPEC #: [id number] RECD: 09/14/23 09:17 STATUS: LINDA ROMY #: [id number] SHERRI: 09/14/23 00:[address]: Earle Saunders DEPT: SURGICAL PATHOLOGY RECD BY: Corrie Adame ENTERED: 09/14/23 11:01 SP TYPE: EGD BIOPSY BART DR: Dr. Subha Mcmahon DO Tissues: Esophagus, NOS Procedures: Special Stain Group II Surgery Specimen Level IV Alcian Blue/PAS (control) HEADER OPERATION: EGD with biopsies PRE-OP DIAGNOSIS: Obesity, gastric metaplasia of esophagus TISSUE SUBMITTED: Distal esophagus biopsy MICROSCOPIC DIAGNOSIS Distal esophagus, biopsy: Gastroesophageal junctional mucosa with mild chronic inflammation. No evidence of goblet cell metaplasia. See comment. AM:bronwyn 09/15/2023 MICROSCOPIC DESCRIPTION Slides are reviewed. GROSS DESCRIPTION Received in fixative is one container labeled with the patient's name and designated distal esophagus. The specimen consists of multiple irregular fragments of light noriega soft tissue that in aggregate measure 1.5 x 0.5 x 0.1 cm. The specimen is totally submitted in one cassette. / AM:bronwyn 09/14/2023 TC:3 [facility]: [id number], [id number]
[2023-09-14 06:25] VITALS: BP 135/78; PULSE 96; RESP 16; TEMP 36.7; O2SAT 99; BMI 38.6
[2023-09-14] MEDS: Lactated Ringers 1,000 ML 15 ML IV (06:30)
[2023-09-14 06:32] LABS: Internal QC Validated? YES +Cl - CLEAR BKGD; Pregnancy, Urine Negative Negative
--- NOTE | 2023-09-14 06:57 | HP.PCM_ITS ---
History and Physical Date of Admission: 09/14/23 MIRELA DRIVER, is a 33 F who presents to the office today for PMH migraines, depression KUB Xray performed 09.11.21 unremarkable. *BGI Established 09.21.21. For the last 2-2.5 months she has been having difficulty with abdominal pain, decreased appetite, diarrhea, nausea and vomiting. She is not , confirmed with testing. Has been going on without change in intensity or frequency. Denies this occurring prior. PCP seen and prescribed Nexium and dicyclomine late last week. Nexium has not helped. She has not started dicyclomine because she was told it would make her sleepy and forgets to take it prior to bed. Biochemical workup elevated inflammatory markers. Chloride (H109), Alkaline phosphatase (H124), CRP (H12.9), globulin (H4.6). US abd performed 09.21.21 liver measurement 15.1. Gallbladder normal, distended. CT abd/pel performed 09.28.21 without remarkable findings. EGD 09.29.21 finding LA Grade A reflux esophagitis; biopsy found gastric metaplasia in esophagus and duodenum; Gastric Chronic gastritis, Distal esophagus inflammation and reflux change and inflammation. Sucralfate, protonix taper, misoprostol. OV 1.3.22 gastric metaplasia of proximal distal esophagus and proximal duodenum will continue to secrete acid. Ablation recommended if symptoms persist. OV 3.1.22 gastric metaplasia of esophagus, abd pain, doing well. Protonix 40 QD OV 3.3.23 Would like to explore weight loss options. Recent stress with toxic relationship which she is ending. Her diet varies day by day and is unable to do an average caloric intake. Exercise is limited to walking her dog though she is trying to get into an exercise routine. Previously attempted phentermine and did not like the way it increased her anxiety and would not like to go down this route. She would like to explore diet and medication options for weight loss at this time. OV 04.05. feels phentermine has lost some of it?s effective; Topamax attempted and did not boost effectiveness. Historically higher doses of phentermine made her feel very anxious. OV .. attempted phentermine but lost effectiveness despite use with Topamax; contrave discussed but too expensive; plenity did not suite lifestyle. Feels she has been maintaining well at this time but would like to discuss different options. ROS Const Constitutional: No anorexia, body ache, chills, excessive sweating, fatigue, fever(s), frequent falls, headache(s), decreased energy, malaise, night sweats, snoring, weakness, weight change, sleep problems, abnormal sleep pattern, change in appetite or other ENT ENT: No headache(s), difficulty swallowing, hoarseness or sore throat Resp Respiratory: No snoring Cardio Cardiology: No chest pain at rest or excessive sweating Gastro GI: No abdominal pain, belching, bloating, change in bowel habits, change in stool character, coffee ground emesis, constipation, cramping, diarrhea, heartburn, difficulty swallowing, feeling full early, excessive flatus, incontinent of stools, Vomiting blood/hematemesis, Blood in stool, loose stools, Black,tarry stools, nausea/dyspepsia, pain with swallowing, vomiting or other Musc Musculoskeletal: No joint pain Skin Skin: No yellowing of the eye or itchy eyes Neuro Neurology: No weakness, frequent falls or headache(s) Psych Psychiatric: No abnormal sleep pattern and No change in appetite Endo Endocrine: No excessive sweating, fatigue or weight change Aller/Imm Allergy/Immunologic: No itchy eyes Rj/Lymp Hematologic/Lymphatic: No easy bleeding or easy bruising Exam Const General: cooperative, healthy appearing and no acute distress Orientation: alert, awake and oriented x3 [facility]: normal to inspection Nose: external nose normal, nares normal, septum normal and no nasal discharge Resp Effort & Inspection: normal respiratory effort and able to speak in complete sentences Cardio Rate: regular rate Pulses: radial pulses present Neuro General: patient alert, patient awake and patient oriented x3 Cognition: normal cognition Speech: speech normal Psych Appearance: grossly normal Mental Status: mental status grossly normal Mood: congruent mood Affect: normal affect Speech and Movement: speech and movement normal Attitude: cooperative Thought Process: normal Thought Content: normal Judgment: judgment good Quality Reporting Tobacco Screening ([facility] 138) Smoking Status: Never smoker Assessment and Plan Assessment and Plan (1) Obesity: Status: Chronic Qualifiers: Obesity type: due to excess calories Obesity classification: adult class 2 (BMI 35 - 39.9) Serious obesity comorbidity presence: without serious comorbidity Body mass index: BMI 38.0-38.9 Qualified Code(s): E66.09 - Other obesity due to excess calories; Z68.38 - Body mass index [BMI] 38.0-38.9, adult Plan: We discussed weight loss in detail. In particular and medical ways in order to lose weight with a stimulant, appetite suppressant or medicine to make you feel full. We had discussed injectable such as Ozempic, Trulicity and or Mounjaro. She is not diabetic so I do not think she was a good candidate for these medicines due to the side effect profile for nondiabetics who take the medicine. She was agreeing to undergo a carbohydrate restriction of 50 g of carbs per day for mouth and transition up therefore. She was okay with getting weight and once a week and she was okay with any diet modifications and lifestyle changes that we need in order to get her to her goal of a BMI of 25. Her current weight is 273 pounds and she is 5 foot 11 which makes her BMI 38. We will give her a short course of Contrave to hopefully help her get back to losing weight as she is doing very well but she seems to hit a plateau. (2) Gastric metaplasia of esophagus: Status: Chronic Qualifiers: Christian's esophagus type: without dysplasia Qualified Code(s): K22.70 - Christian's esophagus without dysplasia Plan: She is doing very well on PPI therapy. We will decrease Protonix down to 20mg daily and repeat her egd. She did get a couple episodes of nausea with abdominal discomfort. I do not think that is secondary to refractory disease. I have examined the patient and the H&P has been reviewed. There are no clinical changes since date of exam.
[2023-09-14 07:15] VITALS: BP 118/76; BP 135/78; PULSE 107; RESP 16; TEMP 36.1; O2SAT 96
--- NOTE | 2023-09-14 07:18 | OP.EGD_ITS ---
Patient Name: Madelyn Martinez Procedure Date: 09/14/2023 6:56 AM Date of : 1990 Age: 33 Procedure: Upper GI endoscopy Indications: Christian's esophagus Providers: Earle Saunders DO Medicines: Monitored Anesthesia Care Patient Profile: This is a 33 year old female. Refer to note in patient chart for documentation of history and physical. Patient has symptoms of chronic heartburn. Complications: No immediate complications. Procedure: Pre-Anesthesia Assessment: - Prior to the procedure, a History and Physical was performed, and patient medications and allergies were reviewed. The risks and benefits of the procedure and the sedation options and risks were discussed with the patient. All questions were answered and informed consent was obtained. Patient identification and proposed procedure were verified by the physician. Mental Status Examination: normal. Airway Examination: normal oropharyngeal airway and neck mobility. Respiratory Examination: clear to auscultation. CV Examination: normal. Prophylactic Antibiotics: The patient does not require prophylactic antibiotics. Prior Anticoagulants: The patient has taken no anticoagulant or antiplatelet agents. ASA Grade Assessment: II - A patient with mild systemic disease. After reviewing the risks and benefits, the patient was deemed in satisfactory condition to undergo the procedure. The anesthesia plan was to use monitored anesthesia care (MAC). Immediately prior to administration of medications, the patient was re-assessed for adequacy to receive sedatives. The heart rate, respiratory rate, oxygen saturations, blood pressure, adequacy of pulmonary ventilation, and response to care were monitored throughout the procedure. The physical status of the patient was re-assessed after the procedure. After obtaining informed consent, the endoscope was passed under direct vision. Throughout the procedure, the patient's blood pressure, pulse, and oxygen saturations were monitored continuously. The Endoscope was introduced through the mouth, and advanced to the second part of duodenum. The upper GI endoscopy was accomplished without difficulty. The patient tolerated the procedure well. Scope In: 7:04:08 AM Scope Out: 7:07:50 AM Total Procedure Duration Time 0 hours 3 minutes 42 seconds Findings: There were esophageal mucosal changes secondary to established short-segment Christian's disease present in the lower third of the esophagus. The maximum longitudinal extent of these mucosal changes was 2 cm in length. Mucosa was biopsied with a cold forceps for histology in 4 quadrants at intervals of 1 cm in the lower third of the esophagus. One specimen bottle was sent to pathology. Verification of patient identification for the specimen was done. Estimated blood loss was minimal. The entire examined stomach was normal. The second portion of the duodenum was normal. Impression: - Esophageal mucosal changes secondary to established short-segment Christian's disease. Biopsied. - Normal stomach. - Normal second portion of the duodenum. Recommendation: - Discharge patient to home. - Resume previous diet. - Continue present medications. - Await pathology results. Procedure Code(s): --- Professional --- 38117, Esophagogastroduodenoscopy, flexible, transoral; with biopsy, single or multiple CPT copyright 2021 [employer]. All rights reserved. The codes documented in this report are preliminary and upon manufacturing associate review may be revised to meet current compliance requirements. Earle Saunders DO 09/14/2023 7:17:53 AM This report has been signed electronically. Number of Addenda: 0 Note Initiated On: 09/14/2023 6:56 AM
--- NOTE | 2023-09-14 07:18 | OP.CCLET_ITS ---
09/14/2023 Subha Mcmahon [address] [place] [address] Re : Upper GI endoscopy procedure for Madelyn Martinez Dear Dr. Mcmahon This procedure was performed on Thursday, September 14, 2023. My impressions and recommendations are as follows: Impressions : - Esophageal mucosal changes secondary to established short-segment Christian's disease. Biopsied. - Normal stomach. - Normal second portion of the duodenum. Recommendations : - Discharge patient to home. - Resume previous diet. - Continue present medications. - Await pathology results. My findings are described in the full procedure note, which is enclosed. If I can be of further assistance, please feel free to contact me at . Sincerely, Earle Saunders, 09/14/2023 7:17:53 AM This report has been signed electronically.
[2023-09-14 07:20] VITALS: BP 127/71; BP 135/78; PULSE 91; RESP 16; O2SAT 95
[2023-09-14 07:25] VITALS: BP 133/68; BP 135/78; PULSE 81; RESP 16; O2SAT 98
[2023-09-14 07:30] VITALS: BP 120/87; BP 135/78; PULSE 80; RESP 16; TEMP 36.9; O2SAT 97
[2023-09-14 07:47] VITALS: BP 135/78
== END 2023-09-14 07:55 | disposition home or self-care (01) ==
LOC: EN 05:51 → AC 05:52
PROVIDERS: Anesthesiology; PCP Family Medicine; Referring Provider Family Medicine; Visit Provider Internal Medicine Gastroenterology
PROC: 0DJ08ZZ Inspection of Upper Intestinal Tract, Via Natural or Artificial Opening Endoscopic (ICD-10-PCS; CPT 43235; principal; 2023-09-14 06:55)
DX: K22.70 Barrett's esophagus without dysplasia (principal); Z68.38 Body mass index [BMI] 38.0-38.9, adult; E66.09 Other obesity due to excess calories
CPT/HCPCS: 43239; 81025; 88305; 88313; J7120; J2405

== ENCOUNTER → 2024-05-04 | Outpatient (CLI) | payer OTHER, SELFPAY ==
[2024-05-04 09:54] LABS: Hematocrit 42.4 % (37-47); Hemoglobin 13.8 g/dL (12.0-15.0); Mean Corp Hgb Conc 32.5 g/dL (32-36); Mean Corpuscular Hgb 27.6 pg (27.0-32.0); Mean Corpuscular Volume 84.8 fL (81-99); Platelet Count 335 K/mm3 (150-450); RBC Distribution Width CV 13.2 % (11.6-14.6); White Blood Count 11.4 K/mm3 (4.4-11.0)
[2024-05-04 11:21] LABS: ALB/GLOB Ratio 0.8 RATIO (0.9-2.4); AST(SGOT) 18 U/L (15-37); Alanine Aminotransfer ALT/SGPT 19 U/L (13-56); Albumin, Serum 3.5 g/dL (3.2-5.0); Alkaline Phosphatase 138 U/L (45-117); Anion Gap 10 (5-15); BUN 10 mg/dL (7-18); Calcium,Total 9.2 mg/dL (8.5-10.1); Chloride 107 mmol/L (98-107); EST Glomerular Filtration Rate 76 mL/min (>60); Est Glom Filt Rate - Afr Amer 92 mL/min (>60); Globulin 4.4 g/dL (2.2-4.2); Glucose 91 mg/dL (74-106); Potassium 3.7 mmol/L (3.5-5.1); Protein, Total 7.9 g/dL (6.4-8.2); Sodium Level 139 mmol/L (136-145); Thyroid Stim Hormone (TSH) 2.05 uIU/mL (0.358-3.74)
== END | disposition home or self-care (01) ==
LOC: LAB 09:31
PROVIDERS: PCP Family Medicine; Referring Provider Psychiatry & Neurology Neurology; Visit Provider Psychiatry & Neurology Neurology
DX: G43.009 Migraine without aura, not intractable, without status migrainosus (principal)
CPT/HCPCS: 36415; 80053; 84443; 85027

== ENCOUNTER → 2024-05-15 | Outpatient (CLI) | payer OTHER, SELFPAY ==
--- NOTE | 2024-05-15 08:50 | RAD_ITS ---
STUDY: X-RAY - CERVICAL SPINE REASON FOR EXAM: Female, 34 years old. neck pain TECHNIQUE: 3 view(s) of the cervical spine were obtained. COMPARISON: None FINDINGS: Normal anterior atlantoaxial articulation. Normal odontoid process. There is straightening of the normal cervical lordosis. Normal vertebral bodies and endplates. Normal disc space heights. Normal visualized intervertebral neuroforamina. The soft tissue structures are unremarkable. RAD/Cerv Spine 2 or 3 Views IMPRESSION: Straightening of the normal lordotic curvature possibly from muscular spasm. Electronically Signed: Praneeth Ventura MD at 8:55 EDT ,
== END | disposition home or self-care (01) ==
PROVIDERS: PCP Family Medicine; Referring Provider Psychiatry & Neurology Neurology; Visit Provider Psychiatry & Neurology Neurology
DX: G47.10 Hypersomnia, unspecified (principal); M54.2 Cervicalgia
CPT/HCPCS: 72040; 95806

== ENCOUNTER → 2024-05-21 | Outpatient (CLI) | payer OTHER, SELFPAY ==
--- NOTE | 2024-05-21 06:44 | MRI_ITS ---
STUDY: MRI BRAIN WITH AND WITHOUT CONTRAST REASON FOR EXAM: Female, 34 years old. Worsening migraine headaches x 6-8 months TECHNIQUE: Multiplanar multisequence imaging of the brain was performed without and following the administration of intravenous contrast. COMPARISON: None. FINDINGS: The ventricles, cisterns, and sulci are within normal limits for patients age. There is no restricted diffusion to suggest acute ischemia or infarction. No succeptibility artifict to suggest intracranial hemorrhage or mineralization. Major intracranial signal voids are preserved. There is no midline shift, mass effect, or extra axial fluid collections are seen. No CP angle or IAC mass is seen. The orbits are unremarkable. The sella turcica and craniovertebral junction are within normal limits. The visualized paranasal sinuses are clear. The mastoid air cells are clear. No abnormal enhancement is seen. MRI/Brain W/WO Contrast IMPRESSION: Unremarkable MRI of the brain with contrast. Electronically Signed: Memo Katz MD at 19:40 EDT ,
== END | disposition home or self-care (01) ==
LOC: MRI 06:33
PROVIDERS: PCP Family Medicine; Referring Provider Psychiatry & Neurology Neurology; Visit Provider Psychiatry & Neurology Neurology
DX: G43.009 Migraine without aura, not intractable, without status migrainosus (principal)
CPT/HCPCS: 70553; A9575

== ENCOUNTER → 2024-08-13 | Outpatient (CLI) | payer OTHER, SELFPAY ==
[2024-08-15 03:07] LABS: Chlamydia By Nucleic Acid AMP Negative (Negative); Gonococcus By Nucleic Acid AMP Negative (Negative)
[2024-08-18 13:07] LABS: HPV APTIMA, High Risk Negative (Negative)
== END | disposition home or self-care (01) ==
LOC: LABSPEC 10:08
PROVIDERS: PCP Family Medicine; Referring Provider Obstetrics & Gynecology; Visit Provider Obstetrics & Gynecology
DX: Z12.4 Encounter for screening for malignant neoplasm of cervix (principal); N89.8 Other specified noninflammatory disorders of vagina; Z11.3 Encounter for screening for infections with a predominantly sexual mode of transmission
CPT/HCPCS: 87070; 87205; 87491; 87591; 87624; 88175; G0145

== ENCOUNTER → 2024-08-29 | Outpatient (CLI) | payer OTHER, SELFPAY | END | disposition home or self-care (01) | PROVIDERS: PCP Family Medicine; Referring Provider Family Medicine; Visit Provider Family Medicine | DX: R30.0 Dysuria (principal) | CPT/HCPCS: 87086 ==

== ENCOUNTER 2024-11-13 16:30 | Outpatient (RCR) | payer OTHER, SELFPAY ==
--- NOTE | 2024-10-18 18:04 | HP.PTREVAL ---
Re-Evaluation Intro: Dr. Subha Mcmahon, DO, It has been my pleasure to treat MIRELA DRIVER over the last 6 visits for B knee pain. Please see the progress note below for an update on the physical therapy plan of care! Subjective Subjective: Pt reports she has made some significant gains at this time Objective Objective/Function: B knee pain ranges from 3-8/10 MMT: R knee ext= 58, L knee ext= 54 #F Pt still displays valgus form with forward lunge Pt is showing excellent progress at this time Plan Plan Plan: 10/18/24- B knee stretching and strengthening, core stab ex's, bike, and HEP Balance/Gait/Functional tests Balance/Special Test Scores Lower Extremity Functional Score: 74 Goals Goals Goal 1:: Decrease B knee pain x 50% to aid with ambulation Goal Time Frame: 2-4 Weeks Goal Progress: Progressing Goal 2:: Increase B quad strength x 10#F to aid with car transfers Goal Time Frame: 2-4 Weeks Goal Progress: Progressing Goal 3:: Increase core stability x 1 grade to aid with preventing knee valgus with forward lunge Goal Time Frame: 2-4 Weeks Goal Progress: Progressing Goal 4:: I with HEP Goal Time Frame: 2-4 Weeks Anticipated Interventions Anticipated Interventions Patient/Client Instruction: Educate patient on: Condition and Plan of Care For the Purpose of:: To improve self management Therapeutic Exercise to Include: Strength training, Balance training, Flexibilty training and Dynamic Lumbar Stabilization For the Purpose of:: To decrease pain, To improve muscle performance and motor function and To increase tolerance to activity/condition/position Cryotherapy (ice pack, ice massage): Yes For the Purpose of:: To decrease pain Re-Evaluation Ending Re-evaluation ending: Please do not hesitate to contact me at [phone] by phone or if you have questions or concerns regarding this new plan of care! Sincerely, Fidel Woods, PT, ATC
--- NOTE | 2024-11-13 17:03 | HP.PTREVAL ---
Re-Evaluation Intro: Dr. Subha Mcmahon, DO, It has been my pleasure to treat MIRELA DRIVER over the last 9 visits for B knee pain. Please see the progress note below for an update on the physical therapy plan of care! Subjective Subjective: My pain is not bad today Objective Objective/Function: Knee pain is 3/10 this date. 7/10 at worst MMT: L knee ext= 49, R knee ext= 46 #F No valgus with forward squat I with HEP Plan Plan Plan: Recheck or discharge in one month Balance/Gait/Functional tests Balance/Special Test Scores Lower Extremity Functional Score: 75 Goals Goals Goal 1:: Decrease B knee pain x 50% to aid with ambulation Goal Time Frame: 2-4 Weeks Goal Progress: Progressing Goal 2:: Increase B quad strength x 10#F to aid with car transfers Goal Time Frame: 2-4 Weeks Goal Progress: Progressing Goal 3:: Increase core stability x 1 grade to aid with preventing knee valgus with forward lunge Goal Time Frame: 2-4 Weeks Goal Progress: Goal Met Goal 4:: I with HEP Goal Time Frame: 2-4 Weeks Goal Progress: Goal Met Anticipated Interventions Anticipated Interventions Patient/Client Instruction: Educate patient on: Condition and Plan of Care For the Purpose of:: To improve self management Therapeutic Exercise to Include: Strength training, Balance training, Flexibilty training and Dynamic Lumbar Stabilization For the Purpose of:: To decrease pain, To improve muscle performance and motor function and To increase tolerance to activity/condition/position Cryotherapy (ice pack, ice massage): Yes For the Purpose of:: To decrease pain Re-Evaluation Ending Re-evaluation ending: Please do not hesitate to contact me at [phone] by phone or if you have questions or concerns regarding this new plan of care! Sincerely, Fidel Woods, PT, ATC
--- NOTE | 2025-01-02 13:41 | HP.PT.NRP ---
Patient Information Patient Information: MIRELA DRIVER was seen in my office for initial evaluation on 09/17/24. The following Plan of Care was established for this patient: POC Established Initial Frequency: 2-3x /Week Initial Duration: 4 Weeks Anticipated Interventions Patient/Client Instruction: Educate patient on: Condition and Plan of Care For the Purpose of:: To improve self management Therapeutic Exercise to Include: Strength training, Balance training, Flexibilty training and Dynamic Lumbar Stabilization For the Purpose of:: To decrease pain, To improve muscle performance and motor function and To increase tolerance to activity/condition/position Cryotherapy (ice pack, ice massage): Yes For the Purpose of:: To decrease pain Last Seen Last Seen: This patient was last seen in our office . Pertinent comments regarding their Physical therapy will appear below: Pt has not returned in greater than 30 days and is discharged at this time. At this point I will be discontinuing this patient from physical therapy. I would be happy to see this patient again in the future if found appropriate by the physician. Thank you! Fidel Woods, PT, ATC Balance/Gait/Functional tests Balance/Special Test Scores Lower Extremity Functional Score: 75
== END 2024-11-13 19:00 | disposition home or self-care (01) ==
LOC: PT 16:30
PROVIDERS: PCP Family Medicine; Referring Provider Family Medicine; Visit Provider Family Medicine
DX: M25.569 Pain in unspecified knee (principal)
CPT/HCPCS: 97110; 97161; 97530

== ENCOUNTER → 2025-05-30 | Outpatient (CLI) | payer OTHER, SELFPAY ==
--- OUTSIDE RECORDS SUMMARY | 2025-05-30 08:21 | XMS RPT_ITS | CCD ---
Author Organization [facility] Care Team Providers Care Office Admin Name Role Phone Cecilia Witt LPN Unavailable Unavailab roseline Mcmahon, Dr. Mascorro Primary Care Provider Dr. Subha Mcmahon Referring Provider [phone] ERICH Laguna Attending Provider Dr. Elsa Graf Attending Provider [phone] Malys, Subha Referring Unavailable Malys, Subha Primary Care Unavailable Elsa Graf Attending Unavailabl e Malys, Subha Referring Unavailable Malys, Subha Primary Care Unavailable Carloz Canela Attending Unavailable Cody Membreno Attending Unavailable Malys, Subha Primary Care Unavailable Cody Membreno Attending Unavailable Malys, Subha Primary Care Unavailable Cody Membreno Attending Unavailable Malys, Subha Primary Care Unavailable Malys, Subha Referring Unavailable Malys, Subha Primary Care Unavailable Carloz Canela Attending Unavailable Malys, Subha Attending Unavailable Malys, Subha Referring Unavailable Malys, Subha Primary Care Unavailable Malys, Subha Referring Unavailable Malys, Subha Primary Care Unavailable Malys, Subha Attending Unavailable Malys, Subha Primary Care Unavailable Elsa Graf Attending Unavailyosi e Elsa Graf Referring Unavailabl e Cody Membreno Attending Unavailable Malys, Subha Primary Care Unavailable SeeCody dias Attending Unavailable Malys, Subha Primary Care Unavailable Medications Current Medications Medication Drug Class(es) Dates Sig (Normalized) Sig (Original) DULoxetine 60 mg delayed release oral capsule (1 source) Serotonin and Norepinephrine Reuptake Inhibitor Start: 07-29-2022 take 60 mg by mouth once daily Duloxetine Active 60 MG PO DAILY July 29, 2022 12:00am pantoprazole 40 mg delayed release oral tablet (2 sources) Proton Pump Inhibitor Start: 12-15-2021 take 1 tablet by mouth once daily Pantoprazole (Protonix) 40 mg tablet,delayed release (DR/EC) Active 40 MG PO DAILY 60 December 15, 2021 9:13am Take one time a day Start: 09-30-2021 End: 12-15-2021 Pantoprazole (Protonix) 40 m g tablet,delayed release (DR/EC) Discontinued 40 MG PO DAILY 60 September 30, 2021 1:00am December 15, 2021 9:14am Take two times a day for eight weeks then once a day for eight weeks then stop. Completed/Discontinued Medications Medication Drug Class(es) Dates Sig (Normalized) Sig (Original) aluminum chloride 200 mg/ml topical solution (2 sources) Start: 01-30-2015 End: 07-13-2017 DRYSOL 20 % SOLN apply once daily to axilla b/l daily ALUMINUM CHLORIDE [id number] Cecilia Witt LPN amoxicillin 500 mg oral capsule (1 source) Penicillin-class Antibacterial Start: 08-24-2017 AMOXICILLIN 500 MG CAPS 2 capsules twice a day AMOXICILLIN [id number] Cody JUNG Start: 08-24-2017 AMOXICILLIN 50 0 MG CAPS 2 capsules twice a day AMOXICILLIN [id number] Cody JUNG amoxicillin 875 mg / clavulanate 125 mg oral tablet (2 sources) Penicillin-class Antibacterial Start: 04-14-2022 End: 06-17-2022 take 1 tablet by mouth twice daily Amoxicillin-Pot Clavulanate Discontinued 1 TABLET PO TWICE A DAY April 14, 2022 12:00am June 17, 2022 3:35pm Start: 04-12-2019 End: 06-09-2020 take 1 tablet by mouth twice daily Amoxicillin-Pot Clavulanate Discontinued 1 TABLET PO TWICE A DAY April 12, 2019 12:00am June 09, 2020 11:10am Recommend waiting until 04/18/19 to start this medication and only if still symptomatic at that time ARIPiprazole 2 mg oral tablet (1 source) Atypical Antipsychotic Start: 07-23-2021 End: 07-29-2022 take 1 tablet by mouth once daily Aripiprazole (Abilify) 2 mg tablet Discontinued 2 MG PO DAILY July 23, 2021 12:00am July 29, 2022 8:45am azithromycin 250 mg oral tablet (2 sources) Macrolide Antimicrobial Start: 11-21-2014 End: 11-21-2014 take 2 tablets by mouth once daily, then take 1 tablet by mouth once daily, then take 2-5 tablets by mouth AZITHROMYCIN 250 MG TABS 2 tabs daily on day 1 then 1 po daily on days 2-5 AZITHROMYCIN [id number] Subha Mcmahon DO benzonatate 200 mg oral capsule (1 source) Non-narcotic Antitussive Start: 04-14-2022 End: 06-17-2022 take 200 mg by mouth three times daily Benzonatate Discontinued 200 MG PO THREE TIMES A DAY April 14, 2022 12:00am June 17, 2022 3:36pm control (1 source) Start: 04-12-2019 End: 06-09-2020 control Discontinued PO April 12, 2019 12:00am June 09, 2020 11:10am ciprofloxacin 500 mg oral tablet (2 sources) Quinolone Antimicrobial Start: 08-19-2015 End: 07-13-2017 take 1 tablet by mouth twice daily CIPROFLOXACIN HCL 500 MG TABS 1 po BID CIPROFLOXACIN HCL [id number] Subha Mcmahon DO cyclobenzaprine hydrochloride 5 mg oral tablet (2 sources) Muscle Relaxant Start: 11-05-2014 End: 01-30-2015 take 1 tablet by mouth once daily CYCLOBENZAPRINE HCL 5 MG TABS 1 po every night for muscle tension CYCLOBENZAPRINE HCL [id number] Subha Mcmahon DO escitalopram 5 mg oral tablet (3 sources) Serotonin Reuptake Inhibitor Start: 06-09-2020 End: 07-29-2022 take 4 tablets by mouth once daily Escitalopram Oxalate (Lexapro) 5 mg tablet Discontinued 20 MG PO DAILY June 09, 2020 11:10am July 29, 2022 8:45am Start: 04-12-2019 End: 06-09-2020 take 1 tablet by mouth once daily Escitalopram Oxalate (Lexapro) 5 mg tablet Discontinued 5 MG PO DAILY April 12, 2019 12:00am June 09, 2020 11:10am Start: 07-13-2017 LEXAPRO TABS a s directed ESCITALOPRAM OXALATE TABS [id number] Cecilia Witt LPN Norgestimate-Ethinyl Estradiol (2 sources) Progestin, Estrogen Start: 07-23-2021 End: 07-29-2022 take 1 tablet by mouth once daily Norgestimate-Ethinyl Estradiol (Sprintec (28)) 0.25-35 mg-mcg tablet Discontinued 1 TABLET PO DAILY July 23, 2021 4:41pm July 29, 2022 8:44am Start: 06-09-2020 End: 07-23-2021 take 1 tablet by mouth once daily Norgestimate-Ethinyl Estradiol (Sprintec (28)) 0.25-35 mg-mcg tablet Discontinued 1 TABLET PO DAILY June 09, 2020 12:00am July 23, 2021 4:42pm fluconazole 150 mg oral tablet (6 sources) Azole Antifungal Start: 03-03-2016 End: 07-13-2017 FLUCONAZOLE 150 MG TABS One tablet x 1 FLUCONAZOLE [id number] Ravin Giron DO Start: 11-21-2014 End: 08-19-2015 FLUCONAZOLE 200 MG TABS 1 po x 1 dose, may repeat in 3 days FLUCONAZOLE [id number] Subha Mcmahon DO miSOPROStol 0.1 mg oral tablet (1 source) Prostaglandin E1 Analog Start: 09-21-2021 End: 10-21-2021 take 100 ug by mouth at bedtime Misoprostol Discontinued 100 MCG PO after meals and at bedtime 120 September 21, 2021 1:00am October 21, 2021 1:01am NORGESTIMATE-ETH ESTRADIOL (2 sources) Start: 10-04-2014 take 1 tablet by mouth once daily SPRINTEC 28 0.25-35 MG-MCG TABS One tablet by mouth daily NORGESTIMATE-ETH ESTRADIOL [id number] Ravin Giron DO Start: 10-04-2014 End: 07-13-2017 take 1 tablet by mouth once daily SPRINTEC 28 0.25-35 MG-MCG TABS One tablet by mouth daily NORGESTIMATE-ETH ESTRADIOL [id number] Cecilia Witt LPN NORGESTIMATE-ETH ESTRADIOL TABS (1 source) Start: 07-13-2017 PREVIFEM TABS as directed NORGESTIMATE-ETH ESTRADIOL TABS [id number] Cecilia Witt LPN omeprazole 40 mg delayed release oral capsule (4 sources) Proton Pump Inhibitor Start: 11-05-2014 End: 07-13-2017 OMEPRAZOLE 40 MG CPDR 1 po daily OMEPRAZOLE [id number] Cecilia Witt LPN ondansetron 4 mg oral tablet (2 sources) Serotonin-3 Receptor Antagonist Start: 11-05-2014 End: 07-13-2017 take 1 tablet by mouth every eight hours as needed for nausea ONDANSETRON HCL 4 MG TABS 1 po every 8 hours PRN nausea ONDANSETRON HCL [id number] Cecilia Witt LPN PARoxetine hydrochloride 30 mg oral tablet (4 sources) Serotonin Reuptake Inhibitor Start: 01-30-2015 End: 07-13-2017 take 1 tablet by mouth once daily PAXIL 30 MG TABS 1 po daily PAROXETINE HCL [id number] Subha Mcmahon DO Start: 12-31-2014 End: 03-31-2015 take 1 tablet by mouth once daily in the morning PAXIL 20 MG TABS 1 po daily in AM PAROXETINE HCL [id number] Subha Mcmahon DO phentermine hydrochloride 37.5 mg oral capsule (2 sources) Sympathomimetic Amine Anorectic Start: 01-30-2015 End: 05-12-2015 take 1 capsule by mouth once daily in the morning PHENTERMINE HCL 37.5 MG CAPS 1 po daily in AM PHENTERMINE HCL [id number] Subha Mcmahon DO 24 hr phentermine 3.75 mg / topiramate 23 mg extended release oral capsule (4 sources) Sympathomimetic Amine Anorectic, Anti-epileptic Agent Start: 03-31-2015 End: 07-13-2017 take 1 capsule by mouth once daily in the morning QSYMIA 7.5-46 MG [id number] 1 po daily in AM PHENTERMINE-TOPI RAMATE [id number] Cecilia Witt LPN Start: 03-31-2015 End: 07-13-2017 take 1 capsule by mouth once daily QSYMIA 3.75-23 MG [id number] 1 po daily x 2 weeks PHENTERMINE-TOPIRAMATE [id number] Cecilia Witt LPN raNITIdine 150 mg oral capsule (4 sources) Histamine-2 Receptor Antagonist Start: 08-19-2015 End: 07-13-2017 take 1 capsule by mouth twice daily RANITIDINE HCL 150 MG CAPS 1 po BID RANITIDINE HCL [id number] Cecilia Witt LPN Start: 10-04-2014 End: 11-21-2014 take 1 tablet by mouth twice daily RANITIDINE HCL 150 MG TABS 1 PO BID RANITIDINE HCL [id number] Subha Mcmahon, 72 hr scopolamine 0.0139 mg/hr transdermal system (1 source) Anticholinergic Start: 09-21-2021 End: 12-15-2021 Scopolamine Base Discontinued 1 PATCH TD Q3D September 21, 2021 1:00am December 15, 2021 9:13am sucralfate 1000 mg oral tablet (1 source) Aluminum Complex Start: 09-30-2021 End: 12-15-2021 take 1 tablet by mouth three times daily 1 hour(s) before mealtime Sucralfate (Carafate) 1 gram tablet Discontinued 1 GM PO before meals September 30, 2021 1:00am December 15, 2021 9:09am Take three times a day, on an empty stomach one hour before meals. 24 hr venlafaxine 37.5 mg extended release oral capsule (6 sources) Serotonin and Norepinephrine Reuptake Inhibitor Start: 11-21-2014 End: 01-30-2015 take 1 capsule by mouth once daily in the morning VENLAFAXINE HCL ER 37.5 MG [id number] 1 po daily in AM with 75 mg capsule VENLAFAXINE HCL [id number] Subha Mcmahon DO Start: 11-05-2014 End: 01-30-2015 take 1 capsule by mouth once daily in the morning VENLAFAXINE HCL ER 75 MG [id number] 1 po daily in AM VENLAFAXINE HCL [id number] Subha Mcmahon DO Start: 10-04-2014 End: 11-21-2014 take 1 tablet by mouth once daily in the morning for anxiety VENLAFAXINE HCL ER 37.5 MG [id number] 1 po QAM for anxiety VENLAFAXINE HCL [id number] Subha Mcmahon DO Problems Active Problems Problem Classification Problem Date Documented Date Episodic/Chronic Abdominal pain (2 sources) Generalized abdominal pain; Translations: [Abdominal pain] Onset: 10-04-2014 10-04-2014 Episodic Acute bronchitis (3 sources) Acute bronchitis; Translations: [Acute bronchitis, unspecified] Onset: 11-21-2014 11-21-2014 Episodic Anxiety disorders (2 sources) Generalized anxiety disorder; Translations: [Generalized anxiety disorder] Onset: 10-04-2014 10-04-2014 Chronic Attention-deficit, conduct, and disruptive behavior disorders (1 source) Attention-deficit hyperactivity disorder, unspecified type; Translations: [Attention-deficit hyperactivity disorder, unspecified type] Onset: 02-26-2025 Chronic Esophageal disorders (1 source) Christian's esophagus; 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 Headache; including migraine (1 source) Migraine without aura, not intractable, without status migrainosus; Translations: [Migraine without aura, not intractable, without status migrainosus] Onset: 05-20-2025 Chronic Immunizations and screening for infectious disease (2 sources) Contact with and (suspected) exposure to other viral communicable diseases; Translations: [Contact with or suspected exposure to other viral communicable disease] Episodic Mood disorders (3 sources) Recurrent major depression; Translations: [Major depressive disorder, single episode, unspecified] Onset: 10-04-2014 10-04-2014 Chronic Other nutritional; endocrine; and metabolic disorders (1 source) Obesity; Translations: [Obesity, unspecified] Onset: 01-30-2015 02-09-2015 Chronic Other upper respiratory infections (4 sources) Acute maxillary sinusitis; Translations: [Viral upper respiratory tract infection] Onset: 08-19-2015 08-24-2017 Episodic Residual codes; unclassified (1 source) Other amnesia; Translations: [Other amnesia] Onset: 05-20-2025 Episodic Unclassified (1 source) Encounter for check-up; Translations: [Encounter for general adult medical examination without abnormal findings] Onset: 07-13-2017 07-13-2017 Viral infection (2 sources) Disease caused by 2019-nCoV; Translations: [COVID-19] Episodic Past or Other Problems Problem Classification Problem Date Documented Date Episodic/Chronic Genitourinary symptoms and ill-defined conditions (1 source) Dysuria; Translations: [Dysuria] Onset: 09-26-2024 Episodic Headache, including migraine (1 source) Tension-type headache; Translations: [Tension-type headache, unspecified, not intractable] Onset: 10-04-2014 10-04-2014 Episodic Malaise and fatigue (1 source) Fatigue; Translations: [Other fatigue] Onset: 10-04-2014 10-04-2014 Episodic Mycoses (1 source) Candidiasis of vagina; Translations: [Candidiasis of vulva and vagina] Onset: 05-12-2015 05-12-2015 Episodic Noninfectious gastroenteritis (1 source) Gastroenteritis; Translations: [Noninfective gastroenteritis and colitis, unspecified] Onset: 08-19-2015 09-16-2015 Episodic Other connective tissue disease (1 source) Peroneal tendinitis, left leg; Translations: [Peroneal tendinitis, left leg] Onset: 05-19-2016 06-03-2016 Episodic Other non-traumatic joint disorders (1 source) Ankle pain; Translations: [Pain in left ankle and joints of left foot] Onset: 05-19-2016 05-19-2016 Episodic Other screening for suspected conditions (not mental disorders or infectious disease) (1 source) Encounter for screening for malignant neoplasm of cervix; Translations: [Encounter for screening for malignant neoplasm of cervix] Onset: 09-04-2024 Episodic Other skin disorders (1 source) Excessive sweating; Translations: [Generalized hyperhidrosis] Onset: 01-30-2015 2015 Episodic Sprains and strains (1 source) Sprain of other ligament of left ankle, initial encounter; Translations: [Sprain of other ligament of left ankle, initial encounter] Onset: 05-19-2016 06-03-2016 Episodic Results Test Name Value Interpretation Reference Range Facility Neurology Visit Reporton Neurology Visit Report [facility] [address], [place] [address] OFFICE VISIT Date of Service: 05/20/25 MR#: [id number] Acct: [id number] Name: MIRELA MARTINEZ Rep #: [id number] : 1990 Provider: Dr. Carloz tavares MD Age/Sex: 35/F Location: [facility]. Status: Signed with Addenda ADDENDUM by Dr. Carloz Canela MD on 05/20/25 at 1653 Addendum Addendum (05/20/2025): Due to availability of samples, Ajovy 225 mg subcutaneously monthly will be initiated (a sample will be given to the patient). The Aimovig sample that was given had an due date and was returned by the patient. 05/20/25 165 Date Carloz Canela MD cc: * Signed ADDENDUM by Dr. Carloz Canela MD on 05/20/25 at 0839 Addendum Addendum (05/20/25): Correction: The patient is currently taking duloxetine. Bupropion is no longer listed on her medication list. 05/20/25 0839 Date Carloz Canela MD cc: * Signed [facility] Chief Complaint: Details: Interim History: Mirela returns for follow-up visit. She has a history of depression, anxiety and gastroesophageal reflux disease. She has been experiencing headaches since she was a teenager. When she was a teenager her headaches occurred about 1 to 2 days/week. Around 2018, she began to have an increase in her headache frequency and since the beginning of 2023 her headaches increased further and occurred daily. Her headaches fluctuated in severity and severe headaches had occurred about 5 days/week. Her headaches are localized primarily to the bilateral periorbital and bitemporal regions. She also has had head pain over the vertex and occipital head region. Her headaches are pressure like in character. She has associated photophobia, phonophobia and nausea. Weather change may possibly be a trigger for her headaches. In years past, her headaches were associated with her menses however more recently she has not noticed an association with her menses. She has been using control pills since she was a teenager. She denied having numbness, weakness, vision change or hearing loss. She has occasional tinnitus. Eletriptan 40 mg, sumatriptan and zolmitriptan 5 mg were not of benefit for her headaches. Propranolol 10 mg daily was not of benefit for headache prophylaxis. Advil, Aleve and Excedrin were not of benefit for her headaches. Topiramate 150 mg twice daily has been of benefit for headache prophylaxis and her headaches decreased in frequency to about 1 day/week however she is experiencing memory loss as a side effect of topiramate. She reduced topiramate to 100 mg twice daily and her memory difficulty is diminished though persists to some degree however her headache frequency has increased to about 10 to 15 days of headache per month. Ubrelvy has been of benefit for her headaches. Ubrelvy has been well-tolerated. She takes ondansetron for nausea. She had some neck pain; this subsided. Cervical spine x-rays in 2023 revealed straightening of the normal cervical lordosis. She has had daytime hypersomnia though she generally feels well rested when she awakens in the morning. An unattended sleep study in 2023 did not reveal evidence of sleep apnea. She has taken bupropion for depression and anxiety. She previously took duloxetine. Physical Exam: Neuro: The patient is awake and alert and responds appropriately; speech is fluent; she is oriented to day of the week; she is able to subtract 7 from 100; she is able to spell world backwards Heart: Regular rhythm and rate Supplemental Info CBC, lipid profile, CMP (06/03/2023): Triglycerides 136 (normal), cholesterol 230 (high), LDL 147 (high), VLDL 27 (normal), HDL 56 (normal) CBC, TSH, lipid profile, CMP (05/04/2024): WBC 11.5 (high), triglycerides 150 (normal), cholesterol 226 (high), LDL 146 (high), HDL 50 (normal) Cervical spine x-rays (05/15/2024): FINDINGS: Normal anterior atlantoaxial articulation. Normal odontoid process. There is straightening of the normal cervical lordosis. Normal vertebral bodies and endplates. Normal disc space heights. Normal visualized intervertebral neuroforamina. The soft tissue structures are unremarkable. IMPRESSION: Straightening of the normal lordotic curvature possibly from muscular spasm. These images were reviewed on 08/21/2024. Unattended sleep study (05/15/2024): This study does not meet the criteria used to define the presence of sleep apnea. Clinical correlation is suggested. Head MRI (05/21/2024): FINDINGS: The ventricles, cisterns, and sulci are within normal limits for patients age. There is no restricted diffusion to suggest acute ischemia or infarction. No succeptibility artifict to suggest intracranial hemorrhage or mineralization. Major intracranial signal voids are p (more content not included)... Normal [facility] MR/BMS.BPon 02-26-2025 MR/BMS.[address], [address] [place] [address] OFFICE VISIT Date of Service: 02/26/25 MR#: [id number] Acct: [id number] Name: MIRELA MARTINEZ Rep #: [id number] : 1990 Provider: Dr. Cody Saez se, DO Age/Sex: 35/F Location: [facility].BP Status: Signed Intake Vital Signs 11/26/24 06:56 02/26/25 06:54 Height 5 ft 11 in 5 ft 11 in Weight: 229 lb BMI 31.9 BP 112/75 102/73 Blood Pressure Location Lt brachial Lt brachial Position Sitting Sitting Respiration 16 16 Pulse 91 83 Pulse Source Monitor Monitor BP Intake Visit Reasons: 3 M FU Accompanied by: Self Allergies No Known Allergies Allergy (Verified 02/26/25 06:57) Medications ???Medication ???Instructions ???Recorded ???Confirmed ???Type norgestimate 0.25 mg-ethinyl 1 tab PO DAILY 90 days #90 tabs 02/26/25 Rx estradiol 35 mcg tablet (Sprintec (28)) ondansetron HCl 4 mg tablet 4 mg PO TID PRN nausea and 4 02/26/25 Rx vomiting #90 tabs topiramate 100 mg tablet 100 mg PO BID #60 tabs 08/21/24 Rx topiramate 50 mg tablet 50 mg PO BID #60 tabs 08/21/24 Rx ubrogepant 100 mg tablet (Ubrelvy) 100 mg PO DAILY PRN headache #10 08/21/24 02/26/25 Rx tabs duloxetine 30 mg capsule,delayed 30 mg PO DAILY #90 caps 02/26/25 0 02/26/25 Rx release lisdexamfetamine 60 mg capsule 60 mg PO DAILY ADHD 30 days #30 02/26/25 Rx caps lisdexamfetamine 60 mg capsule 60 mg PO QAM 30 days #30 caps 02/1402/26/25 Rx lisdexamfetamine 60 mg capsule 60 mg PO QAM 30 days #30 caps 02/1402/26/25 Rx (Vyvanse) [facility] Medical History (Updated 09/04/24 @ 09:[address] Cody Membreno, ) ADHD Selective serotonin reuptake inhibitor (SSRI) discontinuation syndrome Migraine headache Gastric reflux MDD (major depressive disorder) SHARON (generalized anxiety disorder) Contact with and (suspected) exposure to other viral communicable diseases Acute bronchitis, unspecified Gastric metaplasia of esophagus Wears glasses Depression Anxiety Alcohol use Fatty liver Easy bruising Non-smoker History of echocardiogram Abdominal pain Abnormal Pap smear of cervix Surgical History Hx of esophagogastroduodenoscopy History of wisdom tooth extraction, class IV edentulism Family History Grandfather Colon cancer Diabetes Social History (Updated 08/13/24 @ 08:22 by Lorenza Pierson) Smoking Status: Never smoker alcohol intake: current alcohol intake frequency: holidays/special occasions only substance use type: does not use caffeine: Yes what type of physical activity do you participate in: aerobics and weight training frequency: 1-2 times per week seatbelt use: always do you feel safe at home: Yes additional social history: HPI History of Present Illness History provided by: patient HPI: Mirela Martinez is a 35 year old female who presents today for follow up evaluation. Patient reports that she has been good. Will be going to [place] in near future for a memorial service for her uncle who has passed. Is down a total of 85 lbs. Had been having some cognitive symptoms from topiramate and reduced from 150 mg BID to 100 mg and seems like this has helped to some extent. Vyvanse continues to work well. Denies SI/HI or AVH. Review of Systems Constitutional Denies: fever(s), chills, change in weight or fatigue Eyes Denies: change in vision or blurry vision Ears, Nose, Mouth, Throat Denies: throat pain, neck pain or change in hearing Cardiovascular Denies: chest pain, palpitations or dyspnea Respiratory Denies: dyspnea, cough or wheezing Gastrointestinal Denies: abdominal pain, nausea, vomiting, diarrhea or constipation Genitourinary Denies: dysuria or urinary frequency Musculoskeletal Denies: back pain, neck pain, joint pain or muscle weakness Integumentary/Breast Denies: rash or new lesions Neurological Reports: headache(s) (better with topiramate) and confusion (mild cognitive symptoms possible from topiramate); Denies: dizziness Endocrine Denies: fatigue or excessive sweating Hematologic/Lymphatic Denies: easy bruising or easy bleeding Allergic/Immunologic Denies: wheezing Exam Mental Status Exam - Psych Appearance casually dressed and no apparent distress Attitude cooperative and calm Activity/Motor Behavior MSE activity/motor behavior finding no adventitious movements Speech regular rate, regular volume and regular prosody Mood euythmic Affect congruent Thought Process linear, logical and coherent Thought Content no delusions and no hallucinations Suicidal Ideation none Homicidal Ideation none Attention intac (more content not included)... Normal [facility] MR/BMS.BPon 11-26-2024 MR/BMS.BP [facility] [address], [address] [place] [address] OFFICE VISIT Date of Service: 11/26/24 MR#: [id number] Acct: [id number] Name: MIRELA MARTINEZ Rep #: [id number] : 1990 Provider: Dr. Cody Saez se, DO Age/Sex: 34/F Location: [facility].BP Status: Signed Intake Vital Signs 09/04/24 07:00 11/26/24 06:56 Height 5 ft 11 in 5 ft 11 in Weight: 235 lb 229 lb BMI 32.8 31.9 BP 111/78 112/75 Blood Pressure Location Rt brachial Lt brachial Position Sitting Sitting Respiration 16 16 Pulse 77 91 Pulse Source Monitor Monitor BP Intake Visit Reasons: 2 M FU Accompanied by: Self Allergies No Known Allergies Allergy (Verified 11/26/24 07:02) Medications ???Medication ???Instructions ???Recorded ???Confirmed ???Type norgestimate 0.25 mg-ethinyl 1 tab PO DAILY 90 days #90 tabs 11/26/24 Rx estradiol 35 mcg tablet (Sprintec (28)) ondansetron HCl 4 mg tablet 4 mg PO TID PRN nausea and 4 11/26/24 Rx vomiting #90 tabs topiramate 100 mg tablet 100 mg PO BID #60 tabs 08/21/24 Rx topiramate 50 mg tablet 50 mg PO BID #60 tabs 08/21/2408/10 Rx ubrogepant 100 mg tablet (Ubrelvy) 100 mg PO DAILY PRN headache #10 08/21/24 11/26/24 Rx tabs duloxetine 30 mg capsule,delayed 30 mg PO DAILY #90 caps 11/26/24 0 11/26/24 Rx release lisdexamfetamine 60 mg capsule 60 mg PO DAILY ADHD 30 days #30 11/26/24 Rx caps lisdexamfetamine 60 mg capsule 60 mg PO QAM 30 days #30 caps 11/1711/26/24 Rx lisdexamfetamine 60 mg capsule 60 mg PO QAM 30 days #30 caps 11/1711/26/24 [facility] Medical History (Updated 09/04/24 @ 09:[address] Cody Membreno DO) ADHD Selective serotonin reuptake inhibitor (SSRI) discontinuation syndrome Migraine headache Gastric reflux MDD (major depressive disorder) SHARON (generalized anxiety disorder) Contact with and (suspected) exposure to other viral communicable diseases Acute bronchitis, unspecified Gastric metaplasia of esophagus Wears glasses Depression Anxiety Alcohol use Fatty liver Easy bruising Non-smoker History of echocardiogram Abdominal pain Abnormal Pap smear of cervix Surgical History Hx of esophagogastroduodenoscopy History of wisdom tooth extraction, class IV edentulism Family History Grandfather Colon cancer Diabetes Social History (Updated 08/13/24 @ 08:22 by Lorenza Pierson) Smoking Status: Never smoker alcohol intake: current alcohol intake frequency: holidays/special occasions only substance use type: does not use caffeine: Yes what type of physical activity do you participate in: aerobics and weight training frequency: 1-2 times per week seatbelt use: always do you feel safe at home: Yes additional social history: HPI History of Present Illness History provided by: patient HPI: Mirela Martinez is a 34 year old female who presents today for follow up evaluation. Had the flu several weeks ago but has been feeling somewhat better. Did just get back from [place] last week after spending a week with her family. Has lost nearly 65 lbs total in recent past. Has continued to have some cognitive symptoms in regards to word finding/spelling. Does feel like it helps with her migraines so is tolerable. Feels like she is doing well with vyvanse use. Denies significant side effects. Denies SI/HI or AVH. Review of Systems Constitutional Denies: fever(s), chills, change in weight or fatigue Eyes Denies: change in vision or blurry vision Ears, Nose, Mouth, Throat Denies: throat pain, neck pain or change in hearing Cardiovascular Denies: chest pain, palpitations or dyspnea Respiratory Denies: dyspnea, cough or wheezing Gastrointestinal Denies: abdominal pain, nausea, vomiting, diarrhea or constipation Genitourinary Denies: dysuria or urinary frequency Musculoskeletal Denies: back pain, neck pain, joint pain or muscle weakness Integumentary/Breast Denies: rash or new lesions Neurological Reports: headache(s) (better with topiramate) and confusion (mild cognitive symptoms possible from topiramate); Denies: dizziness Endocrine Denies: fatigue or excessive sweating Hematologic/Lymphatic Denies: easy bruising or easy bleeding Allergic/Immunologic Denies: wheezing Exam Mental Status Exam - Psych Appearance casually dressed and no apparent distress Attitude cooperative and calm Activity/Motor Behavior MSE activity/motor behavior finding no adventitious movements Speech regular rate, regular volume and regular prosody Mood euythmic Affect congruent Thought Process linear, logical and coherent Thought Content no delusions (more content not included)... Normal [facility] Re-Evaluation - PT (1)on Re-Evaluation - PT (1) [facility] Physical Therapy [facility] [address] [place] [address] / REEVALUATION / MEDICARE RECERTIFICATION PHYSICAL THERAPY MR#: [id number] Acct: [id number] Name: MIRELA MARTINEZ Rep #: [id number] : 1990 34 From: Fidel Woods PT, ATC Referring Dr.: Dr. Subha Mcmahon DO Status:REG RCR Insurance: [employer] SEL[employer] PAY INSURANCE Re-Evaluation Intro: Dr. Subha Mcmahon DO, It has been my pleasure to treat MIRELA MARTINEZ over the last 9 visits for B knee pain. Please see the progress note below for an update on the physical therapy plan of care! Subjective Subjective: My pain is not bad today Objective Objective/Function: Knee pain is 3/10 this date. 7/10 at worst MMT: L knee ext= 49, R knee ext= 46 #F No valgus with forward squat I with HEP Plan Plan Plan: Recheck or discharge in one month Balance/Gait/Functional tests Balance/Special Test Scores Lower Extremity Functional Score: 75 Goals Goals Goal 1:: Decrease B knee pain x 50% to aid with ambulation Goal Time Frame: 2-4 Weeks Goal Progress: Progressing Goal 2:: Increase B quad strength x 10#F to aid with car transfers Goal Time Frame: 2-4 Weeks Goal Progress: Progressing Goal 3:: Increase core stability x 1 grade to aid with preventing knee valgus with forward lunge Goal Time Frame: 2-4 Weeks Goal Progress: Goal Met Goal 4:: I with HEP Goal Time Frame: 2-4 Weeks Goal Progress: Goal Met Anticipated Interventions Anticipated Interventions Patient/Client Instruction: Educate patient on: Condition and Plan of Care For the Purpose of:: To improve self management Therapeutic Exercise to Include: Strength training, Balance training, Flexibilty training and Dynamic Lumbar Stabilization For the Purpose of:: To decrease pain, To improve muscle performance and motor function and To increase tolerance to activity/condition/position Cryotherapy (ice pack, ice massage): Yes For the Purpose of:: To decrease pain Re-Evaluation Ending Re-evaluation ending: Please do not hesitate to contact me at [phone] by phone or if you have questions or concerns regarding this new plan of care! Sincerely, Fidel Woods PT, ATC 11/13/24 1703 CC: Dr. Subha Mcmahon DO [facility] Signed For Medicare only, by signing this I certify the plan of care. Physicians Signature Date Normal [facility] Re-Evaluation - PT (1)on Re-Evaluation - PT (1) [facility] Physical Therapy [facility] [address] [place] [address] [address] [place] [address] / REEVALUATION / MEDICARE RECERTIFICATION PHYSICAL THERAPY MR#: [id number] Acct: [id number] Name: MIRELA MARTINEZ Rep #: [id number] : 1990 34 From: Fidel Woods PT, ATC Referring Dr.: Dr. Subha Mcmahon DO Status:REG RCR Insurance: [employer]/[facility] SELF PAY INSURANCE Re-Evaluation Intro: Dr. Subha Mcmahon DO, It has been my pleasure to treat MIRELA MARTINEZ over the last 6 visits for B knee pain. Please see the progress note below for an update on the physical therapy plan of care! Subjective Subjective: Pt reports she has made some significant gains at this time Objective Objective/Function: B knee pain ranges from 3-8/10 MMT: R knee ext= 58, L knee ext= 54 #F Pt still displays valgus form with forward lunge Pt is showing excellent progress at this time Plan Plan Plan: 10/18/24- B knee stretching and strengthening, core stab ex's, bike, and HEP Balance/Gait/Functional tests Balance/Special Test Scores Lower Extremity Functional Score: 74 Goals Goals Goal 1:: Decrease B knee pain x 50% to aid with ambulation Goal Time Frame: 2-4 Weeks Goal Progress: Progressing Goal 2:: Increase B quad strength x 10#F to aid with car transfers Goal Time Frame: 2-4 Weeks Goal Progress: Progressing Goal 3:: Increase core stability x 1 grade to aid with preventing knee valgus with forward lunge Goal Time Frame: 2-4 Weeks Goal Progress: Progressing Goal 4:: I with HEP Goal Time Frame: 2-4 Weeks Anticipated Interventions Anticipated Interventions Patient/Client Instruction: Educate patient on: Condition and Plan of Care For the Purpose of:: To improve self management Therapeutic Exercise to Include: Strength training, Balance training, Flexibilty training and Dynamic Lumbar Stabilization For the Purpose of:: To decrease pain, To improve muscle performance and motor function and To increase tolerance to activity/condition/position Cryotherapy (ice pack, ice massage): Yes For the Purpose of:: To decrease pain Re-Evaluation Ending Re-evaluation ending: Please do not hesitate to contact me at [phone] by phone or if you have questions or concerns regarding this new plan of care! Sincerely, Fidel Woods, PT, ATC 10/18/24 1804 CC: Dr. Subha Mcmahon DO [facility] Signed For Medicare only, by signing this I certify the plan of care. Physicians Signature Date Normal [facility] MR/Coco 09-04-2024 MR/ [address], [address] [place] [address] OFFICE VISIT Date of Service: 09/04/24 MR#: [id number] Acct: [id number] Name: MIRELA MARTINEZ Rep #: [id number] : 1990 Provider: Dr. Cody Saez se, DO Age/Sex: 34/F Location: [facility].BP Status: Signed Intake Vital Signs 07/16/24 07:41 08/21/24 07:57 09/04/24 07:00 Height 5 ft 11 in 5 ft 11 in 5 ft 11 in Weight: 240 lb 235 lb BMI 33.5 32.8 BP 114/70 111/78 Blood Pressure Location Lt brachial Rt brachial Position Sitting Sitting Respiration 14 16 Pulse 96 77 Pulse Source Monitor Monitor Temp 98.4 F Pulse Oximetry (%) 100 Oxygen Delivery Method room air BP Intake Visit Reasons: 2 M FU Accompanied by: Self Allergies No Known Allergies Allergy (Verified 09/04/24 07:04) Medications ???Medication ???Instructions ???Recorded ???Confirmed ???Type lisdexamfetamine 30 mg capsule 30 mg PO DAILY For concentrating 05/28/24 09/04/24 History (Vyvchucke) duloxetine 30 mg capsule,delayed 30 mg PO DAILY #90 caps 07/16/24 09/04/24 Rx release norgestimate 0.25 mg-ethinyl 1 tab PO DAILY 90 days #90 tabs 08/13/24 09/04/24 Rx estradiol 35 mcg tablet (Sprintec (28)) ondansetron HCl 4 mg tablet 4 mg PO TID PRN nausea and 08/21/24 09/04/24 Rx vomiting #90 tabs topiramate 100 mg tablet 100 mg PO BID #60 tabs 08/21/24 09/04/24 Rx topiramate 50 mg tablet 50 mg PO BID #60 tabs 08/21/24 09/04/24 Rx ubrogepant 100 mg tablet (Ubrelvy) 100 mg PO DAILY PRN headache #10 08/21/24 09/04/24 Rx tabs PFSH Medical History (Updated 09/04/24 @ 09:[address] Cody Membreno DO) ADHD Selective serotonin reuptake inhibitor (SSRI) discontinuation syndrome Migraine headache Gastric reflux MDD (major depressive disorder) SHARON (generalized anxiety disorder) Contact with and (suspected) exposure to other viral communicable diseases Acute bronchitis, unspecified Gastric metaplasia of esophagus Wears glasses Depression Anxiety Alcohol use Fatty liver Easy bruising Non-smoker History of echocardiogram Abdominal pain Abnormal Pap smear of cervix Surgical History Hx of esophagogastroduodenoscopy History of wisdom tooth extraction, class IV edentulism Family History Grandfather Colon cancer Diabetes Social History (Updated 08/13/24 @ 08:22 by Lorenza Pierson) Smoking Status: Never smoker alcohol intake: current alcohol intake frequency: holidays/special occasions only substance use type: does not use caffeine: Yes what type of physical activity do you participate in: aerobics and weight training frequency: 1-2 times per week seatbelt use: always do you feel safe at home: Yes additional social history: HPI History of Present Illness History provided by: patient HPI: Mirela Martinez is a 34 year old female who presents today for follow up evaluation. Patient reports that she has been doing pretty good. Did try dating again however has put a pause on it for the moment. Recently increased her vyvanse to 60 mg every day. Was feeling like she only is getting a few hours of efficacy. Feels like duloxetine is working largely well. Sleep has been decent, but does wake up in the middle of the night and takes several hours to get back to sleep. Denies SI/HI or AVH. Has lost nearly 60 lbs overall. Does feel like she has been having some more cognitive concerns recently like word finding, spelling, or attention. Discussed at length possible medication side effects. Review of Systems Constitutional Denies: fever(s), chills, change in weight or fatigue Eyes Denies: change in vision or blurry vision Ears, Nose, Mouth, Throat Denies: throat pain, neck pain or change in hearing Cardiovascular Denies: chest pain, palpitations or dyspnea Respiratory Denies: dyspnea, cough or wheezing Gastrointestinal Denies: abdominal pain, nausea, vomiting, diarrhea or constipation Genitourinary Denies: dysuria or urinary frequency Musculoskeletal Denies: back pain, neck pain, joint pain or muscle weakness Integumentary/Breast Denies: rash or new lesions Neurological Reports: headache(s) (better with topiramate); Denies: dizziness or confusion Endocrine Denies: fatigue or excessive sweating Hematologic/Lymphatic Denies: easy bruising or easy bleeding Allergic/Immunologic Denies: wheezing Exam Mental Status Exam - Psych Appearance casually dressed and no apparent distress Attitude cooperative and calm Activity/Motor Behavior MSE activity/motor behavior finding no adventitious movements Speech regular rate, regular volume and regular prosody Mood euythmic Affect congruent Thought Process linear, logical and coher (more content not included)... Normal [facility] Urine Cultureon 08-30-2024 [facility] Culture exhibits no growth. Normal [facility] Comment on above: Performed By: #### M 100.2200 #### [facility] Laboratory [address] [place], [place], [address] Neurology Visit Reporton Neurology Visit Report [facility] [address], [address] [place], [place] [address] OFFICE VISIT Date of Service: 08/21/24 MR#: [id number] Acct: [id number] Name: MIRELA MARTINEZ Rep #: [id number] : 1990 Provider: Dr. Carloz tavares MD Age/Sex: 34/F Location: [facility]. Status: Signed HPI HPI Chief Complaint: Establish Care Details: Interim History: Mirela returns for follow-up visit. She has a history of depression, anxiety and gastroesophageal reflux disease. She has been experiencing headaches since she was a teenager. When she was a teenager her headaches occurred about 1 to 2 days/week. Around 2018, she began to have an increase in her headache frequency and since the beginning of 2023 her headaches increased further and occurred daily. Her headaches fluctuated in severity and severe headaches had occurred about 5 days/week. Her headaches are localized primarily to the bilateral periorbital and bitemporal regions. She also experiences head pain over the vertex and occipital head region. Her headaches are pressure like in character. She has associated photophobia, phonophobia and nausea. Weather change may possibly be a trigger for her headaches. In years past, her headaches were associated with her menses however more recently she has not noticed an association with her menses. She has been using control pills since she was a teenager. She denied having numbness, weakness, vision change or hearing loss. She has occasional tinnitus. Eletriptan 40 mg, sumatriptan and zolmitriptan 5 mg were not of benefit for her headaches. Propranolol 10 mg daily was not of benefit for headache prophylaxis. Advil, Aleve and Excedrin were not of benefit for her headaches. Topiramate 150 mg twice daily has been of benefit for headache prophylaxis and her headaches have now decreased in frequency to about 1 day/week. Her headaches are also less severe since initiation of topiramate. Ubrelvy has been of benefit for her headaches. Ubrelvy and topiramate have been well-tolerated. She takes ondansetron for nausea. She had some neck pain; this has now subsided. Cervical spine x-rays earlier in 2023 revealed straightening of the normal cervical lordosis. She has had daytime hypersomnia though she generally feels well rested when she awakens in the morning. An unattended sleep study earlier in 2023 did not reveal evidence of sleep apnea. She takes bupropion for depression and anxiety. She previously took duloxetine. Physical Exam: Neuro: The patient is awake and alert and responds appropriately Heart: Regular rhythm and rate Supplemental Info CBC, lipid profile, CMP (06/03/2023): Triglycerides 136 (normal), cholesterol 230 (high), LDL 147 (high), VLDL 27 (normal), HDL 56 (normal) CBC, TSH, lipid profile, CMP (05/04/2024): WBC 11.5 (high), triglycerides 150 (normal), cholesterol 226 (high), LDL 146 (high), HDL 50 (normal) Cervical spine x-rays (05/15/2024): FINDINGS: Normal anterior atlantoaxial articulation. Normal odontoid process. There is straightening of the normal cervical lordosis. Normal vertebral bodies and endplates. Normal disc space heights. Normal visualized intervertebral neuroforamina. The soft tissue structures are unremarkable. IMPRESSION: Straightening of the normal lordotic curvature possibly from muscular spasm. These images were reviewed on 08/21/2024. Unattended sleep study (05/15/2024): This study does not meet the criteria used to define the presence of sleep apnea. Clinical correlation is suggested. Head MRI (05/21/2024): FINDINGS: The ventricles, cisterns, and sulci are within normal limits for patients age. There is no restricted diffusion to suggest acute ischemia or infarction. No succeptibility artifict to suggest intracranial hemorrhage or mineralization. Major intracranial signal voids are preserved. There is no midline shift, mass effect, or extra axial fluid collections are seen. No CP angle or IAC mass is seen. The orbits are unremarkable. The sella turcica and craniovertebral junction are within normal limits. The visualized paranasal sinuses are clear. The mastoid air cells are clear. No abnormal enhancement is seen. IMPRESSION: Unremarkable MRI of the brain with contrast. These's were reviewed on 08/21/2024. Assessment and Plan Assessment and Plan (1) Migraine headache without aura: Status: Acute Medications: New topiramate 50 mg PO BID 60 tabs 10RF ondansetron HCl 4 mg PO TID PRN 90 tabs 1RF nausea and vomiting Changed From topiramate 100 mg PO BID 60 tabs 3RF To topiramate Take along with topiramate 50 mg orally twice daily. 100 mg PO BID 60 tabs 10RF Refilled ubrogepant (Ubrelvy) 100 mg PO DAILY PRN 10 tabs 10RF headache Plan Details Additional Comments: The patient has migraine headaches. Her headaches have decreased in frequency and severity sinc (more content not included)... Normal [facility] PAP IG HPV APTIMA 16/18,45on 08-18-2024 ADEQ Comment Normal . [facility] Comment on above: Order Comment: Kay olivera Comment: [id number] Specimen Comment: Source.............Cervix Specimen Comment: No. of containers..01 ThinPrep Vial Result Comment: Sati sfactory for evaluation. Endocervical and/or squamous metaplastic cells (endocervical component) are present. Performed By: #### M 100.2000, L7000.1800, L7400.0280, M100.3200 #### [facility] [address] [place], [address] COMM . Normal . [facility] Comment on above: Order Comment: Speci men Comment: [id number] Specimen Comment: Source.............Cervix Specimen Comment: No. of containers..01 ThinPrep Vial Performed By: #### M 100.1999, L7000.1800, L7400.0280, M100.3200 #### [facility] [address] [place], [address] COMMENT Comment Normal . [facility] Comment on above: Order Comment: Speci men Comment: [id number] Specimen Comment: Source.............Cervix Specimen Comment: No. of containers..01 ThinPrep Vial Result Comment: This liquid based ThinPrep(R) pap test was screened with the use of an image guided system. Performed By: #### M 100, L7000.1800, L7400.0280, M100.3200 #### [facility] [address] [place], [address] DIAG Comment Normal . [facility] Comment on above: Order Comment: Speci men Comment: [id number] Specimen Comment: Source.............Cervix Specimen Comment: No. of containers..01 ThinPrep Vial Result Comment: NEGA TIVE FOR INTRAEPITHELIAL LESION OR MALIGNANCY. Performed By: #### M 100, L7000.1800, L7400.0280, M100.3200 #### [facility] [address] [place], [address] HPV APTIMA, HR Negative Normal Negative [facility] Comment on above: Order Comment: Speci men Comment: [id number] Specimen Comment: Source.............Cervix Specimen Comment: No. of containers..01 ThinPrep Vial Result Comment: This nucleic acid amplification test detects fourteen high- risk HPV types (16,18,31,33,35,39,45,51,52,56,58,59,66,68) without differentiation. Performed By: #### M 100.1999, L7000.1800, L7400.0280, M100.3200 #### [facility] [address] [place], [address] HPV Lucita Rfx Comment Normal . [facility] Comment on above: Order Comment: Speci men Comment: [id number] Specimen Comment: Source.............Cervix Specimen Comment: No. of containers..01 ThinPrep Vial Result Comment: Crit arron not met, HPV Genotype not performed. Performed at: WB - [facility] [id number] Enterprise Account Manager: Jacki Nelson MD, Phone: [phone] Performed at: =G - [facility] [address] [id number] Enterprise Account Manager: Jacki Nelson MD, Phone: [phone] Performed By: #### M , L7000.1800, L7400.0280, M100.3200 #### [facility] [address] [place], [place], [id number] PAPSMR Comment Normal . [facility] Comment on above: Order Comment: Speci men Comment: [id number] Specimen Comment: Source.............Cervix Specimen Comment: No. of containers..01 ThinPrep Vial Result Comment: The Pap smear is a screening test designed to aid in the detection of premalignant and malignant conditions of the uterine cervix. It is not a diagnostic procedure and should not be used as the sole means of detecting cervical cancer. Both false-positive and false-negative reports do occur. Performed By: #### M 100, L7000.1800, L7400.0280, M100.3200 #### [facility] [address] [place], [address] PERFORM Comment Normal . [facility] Comment on above: Order Comment: Speci men Comment: [id number] Specimen Comment: Source.............Cervix Specimen Comment: No. of containers..01 ThinPrep Vial Result Comment: Sharon Quiroz, Project Mgr (ASCP) Performed By: #### M 100.1999, L7000.1800, L7400.0280, M100.3200 #### [facility] [address] [place], [address] Chlamydia/GC ROBERT aptimaon CHLAMY,NUC ACID Negative Normal Negative [facility] Comment on above: Performed By: #### M 100.1999, L7000.1800, L7400.0280, M100.3200 #### [facility] [address] [place], [address] GC BY NUC ACID Negative Normal Negative [facility] Comment on above: Result Comment: Perf ormed at: =G - [facility] [address] [id number] Enterprise Account Manager: Jacki Nelson MD, Phone: [phone] Performed By: #### M 100.1999, L7000.1800, L7400.0280, M100.3200 #### [facility] [address] [place], [address] Genital Culture Comprehensiv bulmaro 08-14-2024 VAC Reason for Exam: vag inal discharge Normal vaginal cipriano isolated. No yeast, Gardnerella, Neisseria or beta-hemolytic Streptococcus isolated. [facility] [facility] Comment on above: Performed By: #### M 100.1999, L7000.1800, L7400.0280, M100.3200 #### [facility] [address] [place], [address] Gram Stainon 08-13-2024 GS Reason for Exam: vag inal discharge Gram Stain 4+ Gram positive rods 1+ Epithelial cells 2+ White Blood Cells No Gram negative diplococci 1+ Gram variable lupe Score = 1 Interpretation: 0-3 Normal, 4-6 Intermediate, 7-10 Positive BV Normal [facility] Comment on above: Performed By: #### M 100.2000, L7000.1800, L7400.0280, M100.3200 #### [facility] [address] [place], [address] Small Equipment Operator Office Visit Reporton 08-13-2024 Small Equipment Operator Office Visit Report [facility]'s [address], [address] [place] [address] OFFICE VISIT Date of Service: 08/13/24 MR#: [id number] Acct: [id number] Name: MIRELA MARTINEZ Rep #: [id number] : 1990 Provider: Dr. 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: No Is patient in pain?: No Allergies No Known Allergies Allergy (Verified 08/13/24 08:16) Medications ???Medication ???Instructions ???Recorded ???Confirmed ???Type ubrogepant 100 mg tablet (Ubrelvy) 100 mg PO DAILY PRN headache #16 05/02/24 08/13/24 Rx tabs topiramate 100 mg tablet 100 mg PO BID #60 tabs 05/24/24 08/13/24 Rx lisdexamfetamine 30 mg capsule 30 mg PO DAILY For concentrating 05/28/24 08/13/24 History (Vyvanse) topiramate 100 mg tablet 150 mg (1.5 x 100 mg) PO BID #90 07/05/24 08/13/24 Rx tabs duloxetine 30 mg capsule,delayed 30 mg PO DAILY #90 caps 07/16/24 08/13/24 Rx release norgestimate 0.25 mg-ethinyl 1 tab PO DAILY 90 days #90 tabs 10/28/24 10/28/24 Rx estradiol 35 mcg tablet (Sprintec (28)) Post menopausal: No Patient : No : No PFSH Medical History Selective serotonin reuptake inhibitor (SSRI) discontinuation syndrome Migraine headache Gastric reflux MDD (major depressive disorder) SHARON (generalized anxiety disorder) Contact with and (suspected) exposure to other viral communicable diseases Acute bronchitis, unspecified Gastric metaplasia of esophagus Wears glasses Depression Anxiety Alcohol use Fatty liver Easy bruising Non-smoker History of echocardiogram Abdominal pain Abnormal Pap smear of cervix Surgical History Hx of esophagogastroduodenoscopy History of wisdom tooth extraction, class IV edentulism Family History Grandfather Colon cancer Diabetes Social History (Updated 08/13/24 @ 08:22 by Lorenza Pierson) Smoking Status: Never smoker alcohol intake: current alcohol intake frequency: holidays/special occasions only substance use type: does not use caffeine: Yes what type of physical activity do you participate in: aerobics and weight training frequency: 1-2 times per week seatbelt use: always do you feel safe at home: Yes additional social history: History 0 Elective abortions Hx Para Spontaneous abortions Hx # Term Pregnancies Ectopic pregnancies Hx # Pregnancies Multiple births # of living children HPI Encounter for routine gynecological examination Details: MIRELA MARTINEZ is a 34 year old who presents for annual exam. was told to think about stopping OCPs due to migraines but has been on it for 15 years and does not want to stop it. migraines are new x 1 year. Has had new sex partner since last pap Last PAP: 08/08/23 History of abnormal PAP: no Last mammogram: n/a History of abnormal mammogram: n/a Colon cancer screening: n/a Other preventative health care screenings: Dr. King Female Reproductive History Cycle Length: 21-35 Bleeding Duration: 5 Questions: metorrhagia: No, sexually active: Yes, dyspareunia: No and PCB: No Menopausal Symptoms: No hot flashes, No night sweats, No weight change, No mood changes, No difficulty concentrating, No sleep problems and No change in libido ROS Const Constitutional: Reports as per HPI; Denies fatigue, increased appetite, poor appetite, night sweats, weight gain or weight loss Cardio Card: Denies chest pain Resp Resp: Denies cough or dyspnea GI GI: Reports as per HPI; Denies abdominal pain, bloating, constipation, nausea or vomiting : Reports as per HPI and other; Denies difficulty voiding, dysuria, hematuria, hot flashes, nipple discharge, pelvic pain, prolapse symptoms, urinary frequency, urinary incontinence, urinary urgency, vaginal discharge, vaginal dryness, vaginal odor or vaginal pruritus Skin Skin/Breast: Denies changing lesions, breast mass, breast pain, breast skin changes or nipple discharge Psych Psych: Denies anxiety, change in libido, depression or difficulty concentrating Exam Const General: cooperative, healthy appearing, comfortable, no acute distress, well developed and well groomed HENMT Head: normal to inspection and normocephalic Ears: hearing grossly normal bilaterally and external ears normal Nose: external nose normal Face and sinus: normal facial exam Neck Neck: normal visual inspection (more content not included)... Normal [facility] MR/BMS.BPon 07-16-2024 MR/BMS.[facility] [address] [place] [address], [address] [place] [address] OFFICE VISIT Date of Service: 07/16/24 MR#: [id number] Acct: [id number] Name: MIRELA MARTINEZ Rep #: [id number] : 1990 Provider: Dr. Cody Saez se, DO Age/Sex: 34/F Location: [facility]. 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 Migraine headache Gastric reflux MDD (major depressive disorder) SHARON (generalized anxiety disorder) Contact with and (suspected) exposure to other viral communicable diseases Acute bronchitis, unspecified Gastric metaplasia of esophagus Wears glasses Depression Anxiety Alcohol use Fatty liver Easy bruising Non-smoker History of echocardiogram Abdominal pain Abnormal Pap smear of cervix Surgical History Hx of esophagogastroduodenoscopy History of wisdom tooth extraction, class IV edentulism Family History Grandfather Colon cancer Diabetes Social History Smoking Status: Never smoker alcohol intake: current alcohol intake frequency: holidays/special occasions only substance use type: does not use caffeine: Yes what type of physical activity do you participate in: none seatbelt use: always do you feel safe at home: Yes additional social history: HPI History of Present Illness History provided by: patient HPI: Mirela Martinez is a 34 year old female who presents today for follow up evaluation. Patient reports that she is doing better partially. Reports that she has had a bad summer because of coming off of CyIsmoleta but have evened out since restarting. Rates current depression 1-2/10 with 0 being none and 10 being worst. Rates anxiety 3-4/10 on the same scale. Was previously was around a 10 throughout the summer. Has continued to take Vyvanse, and feels like this has been helpful. Sleep has been doing better in the recent past. Stopped semaglutide shots a while ago, has lost 50 lbs around this year. Denies SI/HI or AVH. Review of Systems Constitutional Denies: fever(s), chills, change in weight or fatigue Eyes Denies: change in vision or blurry vision Ears, Nose, Mouth, Throat Denies: throat pain, neck pain or change in hearing Cardiovascular Denies: chest pain, palpitations or dyspnea Respiratory Denies: dyspnea, cough or wheezing Gastrointestinal Denies: abdominal pain, nausea, vomiting, diarrhea or constipation Genitourinary Denies: dysuria or urinary frequency Musculoskeletal Denies: back pain, neck pain, joint pain or muscle weakness Integumentary/Breast Denies: rash or new lesions Neurological Reports: headache(s); Denies: dizziness or confusion Endocrine Denies: fatigue or excessive sweating Hematologic/Lymphatic Denies: easy bruising or easy bleeding Allergic/Immunologic Denies: wheezing Exam Mental Status Exam - Psych Appearance casually dressed and no apparent distress Attitude cooperative and calm Activity/Motor Behavior MSE activity/motor behavior finding no adventitious movements Speech regular rate, regular volume and regular prosody Mood euythmic Affect congruent Thought Process linear, logical and coherent Thought Content no delusions and no hallucinations Suicidal Ideation none Homicidal Ideation none Attention intact Concentration intact Sensorium/Orientation awake, alert and oriented x3 Memory/Cognition other (appropriate for stated age) Insight good Judgement good Assessment Plan Assessment Plan (1) MDD (major depressive disorder): Qualifiers: Major depression recurrence: recurrent Active/Remission status: in partial remission Qualified Code(s): F33.41 - Major depressive disorder, recurrent, in partial remission Plan: - doing better since restarting duloxetine - continue duloxetine at 30 mg every day, could consider retitration to 60 mg in future (2) SHARON (generalized anxiety disorder): Plan: - See above - stopped buspar Medications: Refilled duloxetine 30 mg PO DAILY 90 caps 1RF F32.9 - Major depressive disorder, single episode, unspecified, F41.1 - Generalized anxiety disorder Discontinued buspirone Discontinued Reason: Order Changed 7.5 mg PO BID 60 tabs 2RF F33.41 - Major depressive disorder, recurrent, in partial remission, F41.1 - Generalized anxiety disorder 07/16/24 0820 Date Cody Freitas Signature: Date ____ (more content not included)... Normal [facility] MR/BMS.BPon 05-28-2024 MR/[place] [address] OFFICE VISIT Date of Service: 05/28/24 MR#: [id number] Acct: [id number] Name: MIRELA MARTINEZ Rep #: [id number] : 1990 Provider: Dr. Cody Saez se, DO Age/Sex: 34/F Location: [facility] Status: Signed Intake Vital Signs 02/27/24 07:36 05/02/24 09:05 05/28/24 10:01 05/28/24 10:05 Height 5 ft 11 in 5 ft 11 in 5 ft 11 in 5 ft 11 in BP 129/83 H Blood Pressure Location Rt brachial Position Sitting Pulse 112 H Pulse Source Monitor BP Intake Visit Reasons: 3 M FU Child Care Coordinator Required: No Accompanied by: Self Is patient in pain?: No Allergies No Known Allergies Allergy (Verified 05/28/24 10:03) Medications ???Medication ???Instructions ???Recorded ???Confirmed ???Type norgestimate 0.25 mg-ethinyl 1 tab PO DAILY 90 days #90 tabs 08/08/23 05/28/24 Rx estradiol 35 mcg tablet (Sprintec (28)) pantoprazole 40 mg tablet,delayed 40 mg PO DAILY #60 tabs 08/23/23 05/28/24 Rx release (Protonix) ubrogepant 100 mg tablet (Ubrelvy) 100 mg PO DAILY PRN headache #16 05/02/24 05/28/24 Rx tabs topiramate 100 mg tablet 100 mg PO BID #60 tabs 05/24/24 05/28/24 Rx buspirone 7.5 mg tablet 7.5 mg PO BID #60 tabs 05/28/24 05/28/24 Rx lisdexamfetamine 30 mg capsule 30 mg PO DAILY For concentrating 05/28/24 05/28/24 History (Yousif) Current gender identity: female Nurse's Note: Presents to the office today for follow up. 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 Migraine headache Gastric reflux MDD (major depressive disorder) SHARON (generalized anxiety disorder) Contact with and (suspected) exposure to other viral communicable diseases Acute bronchitis, unspecified Gastric metaplasia of esophagus Wears glasses Depression Anxiety Alcohol use Fatty liver Easy bruising Non-smoker History of echocardiogram Abdominal pain Abnormal Pap smear of cervix Surgical History Hx of esophagogastroduodenoscopy History of wisdom tooth extraction, class IV edentulism Family History Grandfather Colon cancer Diabetes Social History Smoking Status: Never smoker alcohol intake: current alcohol intake frequency: holidays/special occasions only substance use type: does not use caffeine: Yes what type of physical activity do you participate in: none seatbelt use: always do you feel safe at home: Yes additional social history: HPI History of Present Illness History provided by: patient HPI: Mirela Martinez is a 34 year old female who presents today for follow up evaluation. Patient reports that she has been off of wellbutrin for about a week, but is still feeling fairly anxious. Has not had any intense panic attacks since stopping the medication. Feels like depression kidd she is doing fine but otherwise is fairly anxious. Did break up with her boyfriend as he was still and it was a complicated situation. Did recently start vyvanse a month or two ago. Was on adderall when she was in college, but stopped after college because she felt somewhat overmedicated. [place] like a zombie when taking is why she stopped. Recently had sleep study which was normal. Also had head and neck MRI which was normal. Just increased topiramate to 100 mg BID. Review of Systems Constitutional Denies: fever(s), chills, change in weight or fatigue Eyes Denies: change in vision or blurry vision Ears, Nose, Mouth, Throat Denies: throat pain, neck pain or change in hearing Cardiovascular Denies: chest pain, palpitations or dyspnea Respiratory Denies: dyspnea, cough or wheezing Gastrointestinal Denies: abdominal pain, nausea, vomiting, diarrhea or constipation Genitourinary Denies: dysuria or urinary frequency Musculoskeletal Denies: back pain, neck pain, joint pain or muscle weakness Integumentary/Breast Denies: rash or new lesions Neurological Reports: headache(s); Denies: dizziness or confusion Endocrine Denies: fatigue or excessive sweating Hematologic/Lymphatic Denies: easy bruising or easy bleeding Allergic/Immunologic Denies: wheezing Exam Mental Status Exam - Psych Appearance casually dressed and no apparent distress Attitude cooperative and calm Activity/Motor Behavior MSE activity/motor behavior finding no adventitious movements Speech regular rate, regular volume and regular prosody Mood anxious Affect congruent Thought Process linear, logical and coherent Thought Content no delusions and no hallucinations Suicidal Ideation none Homicidal Ideation none Attention intact C (more content not included)... Normal [facility] Cervical or vagninal specime n microscopic examination by cytology stain [facility] Cytology report Cyto stain Doc (Cvx/Vag) Comment . [facility] Work Phone: Comment on above: The Pap smear is a s creening test designed to aid in thedetection of premalignant and malignant conditions of theuterine cervix. It is not a diagnostic procedure andshould not be used as the sole means of detecting cervicalcancer. Both false-positive and false-negative reports dooccur. Detection in cervical specim en of any of human papilloma virus (HPV) 16, 18, 31, 33,on 07-29-2022 HPV 16+18+31+33+35+39+ 45+51+52+56+58+59+ 66+68 DNA Probe+sig amp Ql (Cvx) Negative Negative [facility] Work Phone: Comment on above: This nucleic acid am plification test detects fourteen high- risk HPV types (16,18,31,33,35,39,45,51,52,56,58,59,66,68)without differentiation.Performed at: - [facility] [id number] Director: Jacki Nelson MD, Phone: [phone] at: = - [facility] [address] [id number] Director: Jacki Nelson MD, Phone: [phone] Laboratory - Cytologyon 07-17 Resource Center Teacher Cyto stain Nom (Cvx/Vag) [ID] Comment . [facility] Work Phone: Comment on above: Dominguez Woodward , Project Mgr (ASCP) Laboratory - Miscellaneous t estson 07-29-2022 Service comment (Unsp spec) [Interp] Comment . [facility] Work Phone: Comment on above: This liquid based Th inPrep(R) pap test was screened withthe use of an image guided system. Service comment (Unsp spec) [Interp] . . [facility] Work Phone: No Panel Informationon 07-29 Pathology report final diagnosis Narrative Comment . [facility] Work Phone: Comment on above: NEGATIVE FOR INTRAEP ITHELIAL LESION OR MALIGNANCY. No Panel Informationon 06-17 POC SARS CoV-2 Antigen Negative [facility] Work Phone: Absolute lymphocyte counton 05-26-2022 Lymphocytes Auto (Unsp spec) [#/Vol] 3.86 10*3/uL 0.83-4.51 [facility] Work Phone: Absolute reticulocyte counto n 05-26-2022 Reticulocytes (Bld) [#/Vol] 0.00 10*3/uL 0-5 [facility] Work Phone: Basophil percentageon 2021 Basophil percentage 3.2 mg/dL 2.5-4.9 [facility] Work Phone: Bilirubin [Mass/Vol] 0.60 mg/dL 0.20-1.00 [facility] Work Phone: Comment on above: For patients on eltr ombopag therapy, use of Dimension [place] TBIL is not recommended. Chloride [Moles/Vol] 108 mmol/L 98-107 [facility] Work Phone: Cholesterol [Mass/Vol] 215 mg/dL <200 [facility] Work Phone: Comment on above: <200 mg/dL Desirable 200-240 mg/dL Borderline >240 mg/dL High Risk Glucose [Mass/Vol] 112 mg/dL 74-106 [facility] Work Phone: Comment on above: Fasting Glucose resu lt from 100 to 125 mg/dL suggests IMPAIRED HOMEOSTASIS per A.D.A. criteria. Neutrophils (Bld) [#/Vol] 8.9 10*3/uL 2.0-7.7 [facility] Work Phone: Potassium [Moles/Vol] 4.0 mmol/L 3.5-5.1 [facility] Work Phone: Protein [Mass/Vol] 7.6 g/dL 6.4-8.2 [facility] Work Phone: Sodium [Moles/Vol] 139 mmol/L 136-145 [facility] Work Phone: Triglyceride [Mass/Vol] 116 mg/dL <199 [facility] Work Phone: Comment on above: The drugs N-Acetylcy steine and Metamizole may falsely depress this assay.Serum Triglycerides Reference Interval Normal <150 mg/dL Borderline high 150 - 199 mg/dL High 200 - 499 mg/dL Very High > or = 500 mg/dL WBC (Bld) [#/Vol] 14.1 10*3/uL 4.4-11.0 [facility] Work Phone: Bilirubin Test strip Ql (U)o n 05-26-2022 Bilirubin Ql (U) Negative Negative [facility] Work Phone: Blood erythrocytes count (nu mber/volume)on 05-26-2022 RBC (Bld) [#/Vol] 5.04 10*6/uL 4.2-5.4 [facility] Work Phone: Blood hemoglobin measurement (mass/volume)on 05-26-2022 Hemoglobin (Bld) [Mass/Vol] 13.9 g/dL 12.0-15.0 [facility] Work Phone: Blood platelet mean volumeon 05-26-2022 Platelet mean volume (Bld) [Entitic vol] 8.9 fL 6.2-12.0 [facility] Work Phone: Determination of erythrocyte mean corpuscular volume (MCV)on 05-26-2022 MCV (RBC) [Entitic vol] 85.5 fL 81-99 [facility] Work Phone: Direct bilirubinon 2 Bilirubin.direct [Mass/Vol] 0.16 mg/dL 0.00-0.30 [facility] Work Phone: Hematocrit Auto (Bld) [Volum e fraction]on 05-26-2022 Hematocrit (Bld) [Volume fraction] 43.1 % 37-47 [facility] Work Phone: Ketones Test strip Ql (U)on 05-26-2022 Ketones Ql (U) Negative Negative [facility] Work Phone: Laboratory - Chemistry and C hemistry - challengeon 05-26-2022 ALP [Catalytic activity/Vol] 161 U/L 45-117 [facility] Work Phone: ALT [Catalytic activity/Vol] 19 U/L 13-56 [facility] Work Phone: Cholesterol.total/ Cholesterol in HDL [Mass ratio] 3.60 {ratio} [facility] Work Phone: CO2 [Moles/Vol] 23.0 mmol/L 21.0-32.0 [facility] Work Phone: Globulin (S) [Mass/Vol] 4.1 g/dL 2.2-4.2 [facility] Work Phone: Urea nitrogen/Creatinin e [Mass ratio] 16.6 mg/mg 10-20 [facility] Work Phone: Laboratory - Hematology and Cell countson 05-26-2022 Erythrocyte distribution width (RBC) [Entitic vol] 40.4 fL 35.1-43.9 [facility] Work Phone: Erythrocyte distribution width (RBC) [Ratio] 13.2 % 11.6-14.6 [facility] Work Phone: MCH (RBC) [Entitic mass] 27.6 pg 27.0-32.0 [facility] Work Phone: Nucleated RBC/100 WBC (Bld) [Ratio] 0 % 0-5 [facility] Work Phone: MCHC Auto (RBC) [Mass/Vol]on 05-26-2022 MCHC (RBC) [Mass/Vol] 32.3 g/dL 32-36 [facility] Work Phone: Nitrite Test strip Ql (U)on 05-26-2022 Nitrite Ql (U) Negative Negative [facility] Work Phone: No Panel Informationon 05-26 Estimated GFR (MDRD) Amer 110 mL/min >60 [facility] Work Phone: Comment on above: GFR Calc Estimated GFR (MDRD) Non-Af Amer 91 mL/min >60 [facility] Work Phone: Comment on above: Non- GFR Calc Platelets bldon 05-26-2022 Platelets (Bld) [#/Vol] 336 10*3/uL 150-450 [facility] Work Phone: Protein Test strip Ql (U)on 05-26-2022 Protein Ql (U) Negative Negative [facility] Work Phone: Segmented neutrophils/100 WB C Auto (Bld)on 05-26-2022 Segmented neutrophils/100 WBC (Bld) 63.1 % 47-70 [facility] Work Phone: Serum or plasma albumin ruben urement (mass/volume)on 05-26-2022 Albumin [Mass/Vol] 3.5 g/dL 3.2-5.0 [facility] Work Phone: Serum or plasma albumin/glob ulin mass ratioon 05-26-2022 Albumin/Globulin [Mass ratio] 0.9 {ratio} 0.9-2.4 [facility] Work Phone: Serum or plasma calcium ruben urement (mass/volume)on 05-26-2022 Calcium [Mass/Vol] 8.9 mg/dL 8.5-10.1 [facility] Work Phone: Serum or plasma cholesterol in HDL measurement (mass/volume)on 05-26-2022 Cholesterol in HDL [Mass/Vol] 59 mg/dL >40 [facility] Work Phone: Comment on above: The drugs N-Acetylcy steine and Metamizole may falsely depress this assay. Reference Range HDL <40 mg/dL Low HDL Cholesterol HDL >or= 60 mg/dL High HDL Cholesterol Serum or plasma cholesterol in VLDL measurement (mass/volume)on 05-26-2022 Cholesterol in VLDL [Mass/Vol] 23 mg/dL 5-40 [facility] Work Phone: Serum or plasma creatinine m easurement (mass/volume)on 05-26-2022 Creatinine [Mass/Vol] 0.78 mg/dL 0.55-1.02 [facility] Work Phone: Comment on above: The validity of the calculated GFR & GFRAA in patients over 70 years has not been determined. Clinical correlation is essential. Serum or plasma low density lipoprotein (LDL) cholesterol measurement (mass/volume)on 05-26-2022 Cholesterol in LDL [Mass/Vol] 133 mg/dL 0-130 [facility] Work Phone: Serum or plasma urea nitroge n measurement (mass/volume)on 05-26-2022 Urea nitrogen [Mass/Vol] 13 mg/dL 7-18 [facility] Work Phone: Serum or plasma uric acid me asurement (mass/volume)on 05-26-2022 Urate [Mass/Vol] 3.9 mg/dL 2.6-6.0 [facility] Work Phone: Comment on above: The drugs N-Acetylcy steine and Metamizole may falsely depress this assay. Thin prep Papanicolaou smear with manual screeningon 05-26-2022 Thin prep Papanicolaou smear with manual screening 22 U/L 15-37 [facility] Work Phone: Thin prep Papanicolaou smear with manual screening 8 5-15 [facility] Work Phone: Thin prep Papanicolaou smear with manual screening 184 U/L 84-246 [facility] Work Phone: Urine blood detectionon 05-17 RBC Ql (U) Negative Negative [facility] Work Phone: Urine clarityon 05-26-2022 Clarity (U) Sl. Cloudy Clear [facility] Work Phone: Urine color determinationon 05-26-2022 Color (U) Yellow Yellow [facility] Work Phone: Urine glucose detectionon Glucose Ql (U) Normal mg/dl Normal [facility] Work Phone: Urine leukocyte esterase det ection by dipstickon 05-26-2022 Leukocyte esterase Test strip Ql (U) 25 /ul Negative [facility] Work Phone: Urine pHon 05-26-2022 pH (U) 7.0 [pH] 5.0 - 8.0 [facility] Work Phone: Urine specific gravity measu rementon 05-26-2022 Specific gravity (U) [Rel density] 1.010 1.002-1.030 [facility] Work Phone: Urobilinogen Auto test strip Ql (U)on 05-26-2022 Urobilinogen Ql (U) Normal mg/dl Normal [facility] Work Phone: Office Visit: UC: maxillary sinusitison 08-24-2017 Documentation of current medications (procedure) Done Invalid Interpretation Code [facility] Work Phone: Fall risk assessment No Invalid Interpretation Code [facility] Work Phone: Tobacco smoking status NHIS Never Invalid Interpretation Code [facility] Work Phone: Tobacco use CPHS Never smoker Invalid Interpretation Code [facility] Work Phone: Office Visiton 06-30-2015 Smoking cessation education (procedure) yes Invalid Interpretation Code [facility] Work Phone: Office Visit: Initial Visito n 08-17-2014 General categories [Interpretation] of Cervical or vaginal smear or scraping by Cyto stain Normal Invalid Interpretation Code [facility] Work Phone: Vital Signs Date Time Vital Sign Value Performing Clinician Faci lity 07-29-2022 08:40-0400 Body height 180.[address] Subha Mcmahon Work Phone: [facility] Work Phone: 07-29-2022 08:40-0400 Body mass index (BMI) [Ratio] 41.1 kg/m2 Dr. Subha Mcmahon Work Phone: [facility] Work Phone: 07-29-2022 08:40-0400 Body weight 133.[address] Subha Mcmahon Work Phone: [facility] Work Phone: 07-29-2022 08:40-0400 Diastolic blood pressure 83 mm[Hg] Dr. Subha Mcmahon Work Phone: [facility] Work Phone: 07-29-2022 08:40-0400 Systolic blood pressure 139 mm[Hg] Dr. Subha Mcmahon Work Phone: [facility] Work Phone: 06-17-2022 15:34-0400 Body temperature 98 [degF] Dr. Subha Mcmahon Work Phone: [facility] Work Phone: 06-17-2022 15:34-0400 Diastolic blood pressure 82 mm[Hg] Dr. Subha Mcmahon Work Phone: [facility] Work Phone: 06-17-2022 15:34-0400 Heart rate 100 /min Dr. Subha Mcmahon Work Phone: [facility] Work Phone: 06-17-2022 15:34-0400 Respiratory rate 14 /min Dr. Subha Mcmahon Work Phone: [facility] Work Phone: 06-17-2022 15:34-0400 SaO2% (BldA) [Mass fraction] 98 % Dr. Subha Mcmahon Work Phone: [facility] Work Phone: 06-17-2022 15:34-0400 Systolic blood pressure 120 mm[Hg] Dr. Subha Mcmahon Work Phone: [facility] Work Phone: 04-14-2022 15:35-0400 Body temperature 97.5 [degF] Dr. Subha Mcmahon Work Phone: [facility] Work Phone: 04-14-2022 15:35-0400 Diastolic blood pressure 78 mm[Hg] Dr. Subha Mcmahon Work Phone: [facility] Work Phone: 04-14-2022 15:35-0400 Heart rate 88 /min Dr. Subha Mcmahon Work Phone: [facility] Work Phone: 04-14-2022 15:35-0400 Respiratory rate 16 /min Dr. Subha Mcmahon Work Phone: [facility] Work Phone: 04-14-2022 15:35-0400 SaO2% (BldA) [Mass fraction] 99 % Dr. Subha Mcmahon Work Phone: [facility] Work Phone: 04-14-2022 15:35-0400 Systolic blood pressure 132 mm[Hg] Dr. Subha Mcmahon Work Phone: [facility] Work Phone: 08-24-2017 10:47-0500 BMI (Body Mass Index) 31.31 kg/m2 Cecilia Witt LPN [facility] Work Phone: 08-24-2017 10:47-0500 Body Temperature 98.7 [degF] Cecilia Witt LPN [facility] Work Phone: 08-24-2017 10:47-0500 BP Diastolic 82 mm[Hg] Cecilia Witt LPN [facility] Work Phone: 08-24-2017 10:47-0500 BP Systolic 114 mm[Hg] Cecilia Witt LPN [facility] Work Phone: 08-24-2017 10:47-0500 Height 177.8 cm Cecilia Witt LPN [facility] Work Phone: 08-24-2017 10:47-0500 Pulse (Heart Rate) 81 /min Cecilia Witt [facility] Work Phone: 08-24-2017 10:47-0500 Respiratory Rate 13 /min Cecilia Witt [employer] [facility] Work Phone: 08-24-2017 10:47-0500 Weight 98.98 kg Cecilia Witt LPN [facility] Work Phone: 09-10-2015 10:19-0500 BSA (Body Surface Area) 2.12 m2 Cecilia Witt LPN [facility] Work Phone: Encounters Encounter Date Encounter Type Care Provider Facility Start: 05-20-2025 End: 05-20-2025 ambulatory Subha Mcmahon Facility:[facility] Start: 02-26-2025 End: 02-26-2025 ambulatory Cody Membreno Facility:[facility] Start: 11-26-2024 End: 11-26-2024 ambulatory Cody Membreno Facility:[facility] Start: 11-13-2024 End: 11-13-2024 ambulatory Subha Mcmahon Facility:[facility] Start: 09-04-2024 End: 09-04-2024 ambulatory Cody Membreno Facility:[facility] Start: 08-29-2024 End: 08-29-2024 ambulatory Subha Mcmahon Facility:[facility] Start: 08-21-2024 End: 08-21-2024 ambulatory Subha Mcmahon Facility:[facility] Start: 08-13-2024 Encounter for gynecological examination (general) (routine) without abnormal findings Elsa Graf [facility] Start: 08-13-2024 End: 08-13-2024 ambulatory Subha Malcheryl Facility:[facility] Start: 08-13-2024 End: 08-13-2024 ambulatory Subha Mcmahon Facility:[facility] Start: 07-16-2024 End: 07-16-2024 ambulatory Cody Diehl Seese Facility:[facility] Start: 05-28-2024 End: 05-28-2024 ambulatory Cody Diehl See Facility:[facility] Start: 07-29-2022 End: 07-29-[address] Subha Mcmahon Work Phone: [facility] Work Phone: Start: 07-29-2022 End: 07-29-[address] Subha Mcmahon Work Phone: [facility]-Laboratory, Specimen Start: 07-29-2022 End: 07-29-[address] Subha Mcmahon Work Phone: [facility] Start: 06-17-2022 End: 06-17-[address] Subha Mcmahon Work Phone: [facility] Start: 05-26-[address] [facility] Start: 04-14-2022 End: 04-14-[address] Subha Mcmahon Work Phone: [facility] Procedures Date Procedure Procedure Detail Performing Clinician Start: 07-13-2017 End: 07-13-2017 [facility] Cody Mena Work Phone: Plan of Treatment Date Care Activity Detail Author Start: 08-24-2017 End: 08-24-2017 Appointment [facility] Work Phone: Start: 05-19-2016 End: 05-19-2016 Radex ankle complete minimum 3 views X-Ray, Ankle [facility] Work Phone: Start: 05-19-2016 End: 05-19-2016 Radex foot complete minimum 3 views X-Ray, Foot [facility] Work Phone: Start: 10-04-2014 End: 10-04-2014 Thyroid stimulating hormone (TSH) *TSH [facility] Work Phone: Immunizations Immunization Date Immunization Notes Care Provider Fa cili 07-30-2021 influenza, seasonal, injectable Dr. Subha Mcmahon Work Phone: [facility] Work Phone: 11-17-2020 Covid (Moderna) Dr. Subha luna Work Phone: [facility] Work Phone: 10-20-2020 Covid (Yaya) Dr. Subha luna Work Phone: [facility] Work Phone: 07-15-2020 influenza, seasonal, injectable Dr. Subha Mcmahon Work Phone: [facility] Work Phone: 08-20-2019 influenza, seasonal, injectable Dr. Subha Mcmahon Work Phone: [facility] Work Phone: 08-16-2018 influenza, seasonal, injectable Dr. Subha Mcmahon Work Phone: [facility] Work Phone: 07-13-2017 influenza, seasonal, injectable Dr. Subha Mcmahon Work Phone: [facility] Work Phone: 07-15-2016 influenza, seasonal, injectable Dr. Subha Mcmahon Work Phone: [facility] Work Phone: 07-17-2015 influenza, seasonal, injectable Dr. Subha Mcmahon Work Phone: [facility] Work Phone: 07-11-2014 influenza, seasonal, injectable Dr. Subha Mcmahon Work Phone: [facility] Work Phone: Payers Date Payer Category Payer Self-pay [id number] 2023 Unknown [id number] Unknown [facility] 9 [id number] Unknown [id number] Unknown [id number] Unknown [id number] Unknown [id number] Unknown [id number] Unknown [id number] Unknown [id number] Unknown [id number] Unknown [id number] Unknown [id number] Unknown [id number] Social History Date Type Detail Facility Start: 07-29-2022 Tobacco smoking stat [facility] Unknown if ever smoked [facility] Work Phone: Start: 1990 Sex Assigned At Female W [facility] Work Phone: Clinical Note 07-29-2022 Note Date & Type Note Facility 07-29-2022 Note [facility] Work Phone: Pap Smear Specimen Adequacy July 29, 2022 11:08am Comment . Satisfactory for evaluation. Endocervical and/or squamous metaplasticcells (endocervical component) are present. Comment on above: Satisfactory for janet luation. Endocervical and/or squamous metaplasticcells (endocervical component) are present. 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 Reason for Visit Acute bronchitis, un specified COVID-19 Contact with and (suspected) exposure to other viral communicable diseases Encounter for routine gynecological examination Family History No Family History Records Found Relationship Condition Age at Onset Recorded Date/T tenzin grandfather Malignant neoplasm of colon Unknown Diabetes mellitus Unknown Advance Directives No Advanced Directives Records Found Advance Directive Response Recorded Date/ Time Living Will No October 19 9:27am Power of Club Former No October 19 022 9:27am Summary Purpose Additional Source Comments Goals (unrecognized section and content) Goals may be documented in a n alternate section INFORMATION SOURCE (unrecogn ized section and content) DATE CREATED AUTHOR 05/21/2025 [facility] FOR RECORDS PERTAINING TO PATIENTS WHO ARE OR HAVE BEEN ENROLLED IN A CHEMICAL DEPENDENCY/SUBSTANCEABUSE PROGRAM, SOME INFORMATION MAY BE OMITTED. This clinical summary was aggregated from multiple sources. Caution should be exercised in using it in the provision of clinical care. This summary normalizes information from multiple sources, and as a consequence, information in this document may materially change the coding, format and clinical context of patient data. In addition, data may be omitted in some cases. CLINICAL DECISIONS SHOULD BE BASED ON THE PRIMARY CLINICAL RECORDS. [employer] provides no warranty or guarantee of the accuracy or completeness of information in this document.
[2025-05-30 11:02] LABS: Magnesium 2.3 mg/dL (1.5-2.2); Vitamin B12 270 pg/mL (180-914)
[2025-06-03 12:08] LABS: Vitamin D 1,25-Dihydroxy 52.0 pg/mL (24.8-81.5)
[2025-06-04 11:08] LABS: Folate, Hemolysate Test 337.0 ng/mL (Not Estab.); Folate, RBC (Hct) Test 44.1 % (34.0-46.6); Folates, RBC Test 764 ng/mL (>498); Vitamin B1, Thiamine 111.0 nmol/L (66.5-200.0)
== END | disposition home or self-care (01) ==
LOC: LAB 07:59
PROVIDERS: PCP Family Medicine; Referring Provider Psychiatry & Neurology Neurology; Visit Provider Psychiatry & Neurology Neurology
DX: G43.009 Migraine without aura, not intractable, without status migrainosus (principal); R41.3 Other amnesia
CPT/HCPCS: 82607; 82652; 82747; 83735; 84425; 84443; 85014

== ENCOUNTER → 2025-08-19 | Outpatient (CLI) | payer OTHER, SELFPAY ==
--- OUTSIDE RECORDS SUMMARY | 2025-08-19 14:31 | XMS RPT_ITS | CCD ---
Author Organization [facility] Care Team Providers Care Recreational Leader Name Role Phone Cecilia Witt LPN Unavailable Unavailab roseline Mcmahon, Dr. Mascorro Primary Care Provider Dr. Subha Mcmahon Referring Provider ERICH Laguna Attending Provider Dr. Elsa Graf Attending Provider [phone] Malys, Subha Primary Care Unavailable Carloz Canela Attending Unavailable Rola Carloz Referring Unavailable Assessment, Health Risk Referring Unavaila ble Malys, Subha Primary Care Unavailable Assessment, Health Risk Attending Unavaila ble Malys, Subha Attending Unavailable Malys, Subha Referring [...] Malys, Subha Primary Care Unavailable Malys, Subha Primary Care Unavailable Malys, Subha Referring Unavailable Carloz Canela Attending Unavailable Malys, Subha Referring Unavailable Malys, Subha Primary Care Unavailable Elsa Graf Attending Unavailabl e Cody Membreno Attending Unavailable Malys, [...] daily to axilla b/l daily ALUMINUM CHLORIDE [id number] Cecilia Witt LPN amoxicillin 500 mg oral capsule (1 source) Penicillin-class Antibacterial Start: 08-24-2017 AMOXICILLIN 500 MG CAPS 2 capsules twice a day AMOXICILLIN [id number] Cody JUNG Start: 08-24-2017 AMOXICILLIN 50 0 MG CAPS 2 capsules twice a day AMOXICILLIN [id number] Cody JUNG amoxicillin 875 mg / clavulanate [...] 1 po daily on days 2-5 AZITHROMYCIN [id number] Subha Mcmahon DO benzonatate 200 mg oral [...] MG TABS 1 po BID CIPROFLOXACIN HCL [id number] Subha Mcmahon DO cyclobenzaprine hydrochloride 5 mg oral tablet (2 sources) Muscle Relaxant Start: 11-05-2014 End: 01-30-2015 take 1 tablet by mouth once daily CYCLOBENZAPRINE HCL 5 MG TABS 1 po every night for muscle tension CYCLOBENZAPRINE HCL 00178648984 Subha Mcmahon DO escitalopram 5 mg oral [...] TABS a s directed ESCITALOPRAM OXALATE TABS [id number] Cecilia Witt LPN Norgestimate-Ethinyl Estradiol (2 sources) [...] MG TABS One tablet x 1 FLUCONAZOLE [id number] Ravin Giron DO Start: 11-21-2014 End: 08-19-2015 FLUCONAZOLE 200 MG TABS 1 po x 1 dose, may repeat in 3 days FLUCONAZOLE [id number] Subha Mcmahon DO miSOPROStol 0.1 mg oral [...] One tablet by mouth daily NORGESTIMATE-ETH ESTRADIOL [id number] Ravin Giron DO Start: 10-04-2014 End: 07-13-2017 take 1 tablet by mouth once daily SPRINTEC 28 0.25-35 MG-MCG TABS One tablet by mouth daily NORGESTIMATE-ETH ESTRADIOL 27141370682 Cecilia Witt LPN NORGESTIMATE-ETH ESTRADIOL TABS (1 source) Start: 07-13-2017 PREVIFEM TABS as directed NORGESTIMATE-ETH ESTRADIOL TABS [id number] Cecilia Witt LPN omeprazole 40 mg delayed release oral capsule (4 sources) Proton Pump Inhibitor Start: 11-05-2014 End: 07-13-2017 OMEPRAZOLE 40 MG CPDR 1 po daily OMEPRAZOLE 31125909573 Cecilia Witt LPN ondansetron 4 mg oral tablet (2 sources) Serotonin-3 Receptor Antagonist Start: 11-05-2014 End: 07-13-2017 take 1 tablet by mouth every eight hours as needed for nausea ONDANSETRON HCL 4 MG TABS 1 po every 8 hours PRN nausea ONDANSETRON HCL 65463100938 Cecilia Witt LPN PARoxetine hydrochloride 30 mg oral tablet (4 sources) Serotonin Reuptake Inhibitor Start: 01-30-2015 End: 07-13-2017 take 1 tablet by mouth once daily PAXIL 30 MG TABS 1 po daily PAROXETINE HCL 93181185636 Subha Mcmahon DO Start: 12-31-2014 End: 03-31-2015 take 1 tablet by mouth once daily in the morning PAXIL 20 MG TABS 1 po daily in AM PAROXETINE HCL 67098118920 Subha Mcmahon DO phentermine hydrochloride 37.5 mg oral capsule (2 sources) Sympathomimetic Amine Anorectic Start: 01-30-2015 End: 05-12-2015 take 1 capsule by mouth once daily in the morning PHENTERMINE HCL 37.5 MG CAPS 1 po daily in AM PHENTERMINE HCL 36172741156 Subha Mcmahon DO 24 hr phentermine 3.75 mg / topiramate 23 mg extended release oral capsule (4 sources) Sympathomimetic Amine Anorectic, Anti-epileptic Agent Start: 03-31-2015 End: 07-13-2017 take 1 capsule by mouth once daily in the morning QSYMIA 7.5-46 MG [id number] 1 po daily in AM PHENTERMINE-TOPI RAMATE 62007486606 Cecilia Witt LPN Start: 03-31-2015 End: 07-13-2017 take 1 capsule by mouth once daily QSYMIA 3.75-23 MG [id number] 1 po daily x 2 weeks PHENTERMINE-TOPIRAMATE 04695992286 Cecilia Witt LPN raNITIdine 150 mg oral capsule (4 sources) Histamine-2 Receptor Antagonist Start: 08-19-2015 End: 07-13-2017 take 1 capsule by mouth twice daily RANITIDINE HCL 150 MG CAPS 1 po BID RANITIDINE HCL 76776823628 Cecilia Witt LPN Start: 10-04-2014 End: 11-21-2014 take 1 tablet by mouth twice daily RANITIDINE HCL 150 MG TABS 1 PO BID RANITIDINE HCL 48649157883 Subha Mcmahon, 72 hr scopolamine 0.0139 mg/hr [...] the morning VENLAFAXINE HCL ER 37.5 MG [id number]-BFH 1 po daily in AM with 75 mg capsule VENLAFAXINE HCL [id number] Subha Mcmahon DO Start: 11-05-2014 End: 01-30-2015 take 1 capsule by mouth once daily in the morning VENLAFAXINE HCL ER 75 MG [id number]-LVV 1 po daily in AM VENLAFAXINE HCL 40259762820 Subha Mcmahon DO Start: 10-04-2014 End: 11-21-2014 take 1 tablet by mouth once daily in the morning for anxiety VENLAFAXINE HCL ER 37.5 MG [id number]-[id number] 1 po QAM for anxiety VENLAFAXINE HCL 28528817796 Subha Mcmahon DO Problems Active Problems Problem [...] Translations: [Attention-deficit hyperactivity disorder, unspecified type] Onset: 06-04-2025 Chronic Esophageal disorders (1 source) Christian's esophagus; 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 Headache; including migraine (1 source) Migraine without aura, not intractable, without status migrainosus; Translations: [Migraine without aura, not intractable, without status migrainosus] Onset: 06-05-2025 Chronic Immunizations and screening for infectious disease (2 sources) Contact with and (suspected) exposure to other viral communicable diseases; Translations: [Contact with or suspected exposure to other viral communicable disease] Episodic Mood disorders (2 sources) Recurrent major depression; Translations: [Major depressive [...] left foot] Onset: 05-19-2016 05-19-2016 Episodic Other skin disorders (1 source) Excessive sweating; Translations: [Generalized hyperhidrosis] Onset: 01-30-2015 2015 Episodic Sprains and strains (1 source) Sprain of other ligament of left ankle, initial encounter; Translations: [Sprain of other ligament of left ankle, initial encounter] Onset: 05-19-2016 06-03-2016 Episodic Results Test Name Value Interpretation Reference Range Facility Folates, RBCon 06-04-2025 Fol.,Hemolysate 337.0 ng/mL Normal Not Estab. [facility] Comment on above: Order Comment: Test( s) [id number]-Vbo. B1, Whole Bloodwas developed and its performance characteristicsdetermined by [facility]. It has not been cleared or approvedby the Food and Drug Administration. Performed By: #### L 100.0500, L3300.8000, L503.0106, L501.5200, L3300.0960, L3100.1725, L501.9520 ####[facility] [address] [place], [place], [id number] Folate, RBC 764 ng/mL Normal >498 [facility] Comment on above: Order Comment: Test( s) [id number]-Mpm. B1, Whole Bloodwas developed and its performance characteristicsdetermined by [facility]. It has not been cleared or approvedby the Food and Drug Administration. Performed By: #### L 100.0500, L3300.8000, L503.0106, L501.5200, L3300.0960, L3100.1725, L501.9520 ####[facility] [address] [place], [address] Hematocrit (Bld) [Volume fraction] 44.1 % Normal 34.0-46.6 [facility] Comment on above: Order Comment: Test( s) [id number]-Qlq. B1, Whole Bloodwas developed and its performance characteristicsdetermined by [facility]. It has not been cleared or approvedby the Food and Drug Administration. Performed By: #### L 100.0500, L3300.8000, L503.0106, L501.5200, L3300.0960, L3100.1725, L501.9520 ####[facility] [address] [place], [place], [id number] /Coco 06-04-2025 MR/ [address], [address] [place] [address] OFFICE VISIT Date of Service: 06/04/25 MR#: [id number] Acct: [id number] Name: MIRELA MARTINEZ Rep #: [id number] : 1990 Provider: Dr. Cody Saez se, Age/Sex: 35/F Location: [facility] [place] Status: Signed Intake Vital Signs 02/26/25 06:54 06/04/25 06:53 Height 5 ft 11 in 5 ft 11 in Weight: 226 lb BMI 31.5 BP 102/73 124/78 H Blood Pressure Location Lt brachial Lt brachial Position Sitting Sitting Respiration 16 16 Pulse 83 92 Pulse Source Monitor Monitor BP Intake Visit Reasons: 3 M FU Accompanied by: Self Allergies No Known Allergies Allergy (Verified 06/04/25 06:58) Medications ???Medication ???Instructions ???Recorded ???Confirmed ???Type norgestimate 0.25 mg-ethinyl 1 tab PO DAILY 90 days #90 tabs 06/04/25 Rx estradiol 0.035 mg tablet (Sprintec (28)) duloxetine 30 mg capsule,delayed 30 mg PO DAILY #90 caps 02/26/25 0 06/04/25 Rx release fremanezumab-vfrm 225 mg/1.5 mL 225 mg (1.5 mL) subcut QMONTH #1.5 05/20/25 06/04/25 Rx subcutaneous auto-injector (Ajovy) mL ondansetron HCl 4 mg tablet 4 mg PO TID PRN nausea and 5 06/04/25 Rx vomiting #90 tabs ubrogepant 100 mg tablet (Ubrelvy) 100 mg PO DAILY PRN headache #10 05/20/25 06/04/25 Rx tabs hydroxyzine HCl 25 mg tablet 25 mg PO BID PRN anxiety #60 tabs 06/04/25 06/04/25 Rx lisdexamfetamine 60 mg capsule 60 mg PO QDAY 30 days #30 caps 06/04/25 Rx PFSH Medical History (Updated 05/20/25 @ 08:[address] Carloz Canela MD) ADHD Selective serotonin reuptake inhibitor (SSRI) discontinuation [...] evaluation. Patient reports that she has been ok. Feels like [employer] is not working as well as it used to. Reports that she feels like she is distracted very easily. Feels like energy is still fairly low. Has been tapering off her topiramate, and is currently on 50 mg twice a day and will soon be completely off the medication. Did have some mood fluctuations with reducing but this has since stabilized. Has been dating someone since February. In regards to sleep, frequently wakes up around 2-3 am. Generally takes about 1-2 hours to get back to sleep. Denies SI/HI or AVH. Review of Systems [...] Reports: headache(s) (better with topiramate) and confusion (Improving with reduced dose of topiramate); Denies: dizziness Endocrine Denies: fatigue or [...] coherent Thought Content no delusions and no hallucin (more content not included)... Normal [facility] Vitamin B1, Thiamineon 06-04 VIT B1 THIAMINE 111.0 nmol/L Normal 66.5-200.0 [facility] Comment on above: Order Comment: Test( s) [id number]-Xet. B1, Whole Bloodwas developed and its performance characteristicsdetermined by [employer]. It has not been cleared or approvedby the Food and Drug Administration. Result Comment: Perf ormed at: [address] [id number] Make Up Arranger: Seamus Matos PhD, Phone: [phone] Performed at: [address] [id number] Make Up Arranger: Santana Gonzales MD, Phone: [phone] Performed By: #### L 100.0500, L3300.8000, L503.0106, L501.5200, L3300.0960, L3100.1725, L501.9520 ####[facility] [address], [place], [id number] Vitamin D 1,25-Dihydroxyon 0 06-03-2025 VIT D 1,25 DIHY 52.0 pg/mL Normal 24.8-81.5 [facility] Comment on above: Result Comment: Perf ormed at: [address] [id number] Make Up Arranger: Santana Gonzales MD, Phone: [phone] Performed By: #### L 100.0500, L3300.8000, L503.0106, L501.5200, L3300.0960, L3100.1725, L501.9520 ####[facility] [address] [place], [address] CBC, Employeeon 05-30-2025 Absolute Lymph 2.26 X10 3/uL Normal 0.83-4.51 [facility] Comment on above: Order Comment: SEND, LIPID, CMP, CBC TO Performed By: #### L 400.0100, L500.2900, L100.0200 #### [facility] [address] [place], [address] Absolute Neut 4.0 X10 3/uL Normal 2.0-7.7 [facility] Comment on above: Order Comment: SEND, LIPID, CMP, CBC TO Performed By: #### L 400.0100, L500.2900, L100.0200 #### [facility] [address] [place], [address] Basophils/100 WBC (Bld) 0.6 % Normal 0-1 [facility] Comment on above: Order Comment: SEND, LIPID, CMP, CBC TO Performed By: #### L 400.0100, L500.2900, L100.0200 #### [facility] [address] [place], [address] Eosinophils/100 WBC (Bld) 2.6 % Normal 0-5 [facility] Comment on above: Order Comment: SEND, LIPID, CMP, CBC TO Performed By: #### L 400.0100, L500.2900, L100.0200 #### [facility] [address] [place], [address] Erythrocyte distribution width (RBC) [Ratio] 12.3 % Normal 11.6-14.6 [facility] Comment on above: Order Comment: SEND, LIPID, CMP, CBC TO Performed By: #### L 400.0100, L500.2900, L100.0200 #### [facility] [address] [place], [address] Hematocrit (Bld) [Volume fraction] 43.1 % Normal 37-47 [facility] Comment on above: Order Comment: SEND, LIPID, CMP, CBC TO Performed By: #### L 400.0100, L500.2900, L100.0200 #### [facility] [address] [place], [address] Hemoglobin (Bld) [Mass/Vol] 14.3 g/dL Normal 12.0-15.0 [facility] Comment on above: Order Comment: SEND, LIPID, CMP, CBC TO Performed By: #### L 400.0100, L500.2900, L100.0200 #### [facility] [address] [place], [address] Lymphocytes/100 WBC (Bld) 33.0 % Normal 19-41 [facility] Comment on above: Order Comment: SEND, LIPID, CMP, CBC TO Performed By: #### L 400.0100, L500.2900, L100.0200 #### [facility] [address] [place], [address] MCH (RBC) [Entitic mass] 30.4 pg Normal 27.0-32.0 [facility] Comment on above: Order Comment: SEND, LIPID, CMP, CBC TO Performed By: #### L 400.0100, L500.2900, L100.0200 #### [facility] [address] [place], [address] MCHC (RBC) [Mass/Vol] 33.2 g/dL Normal 32-36 [facility] Comment on above: Order Comment: SEND, LIPID, CMP, CBC TO Performed By: #### L 400.0100, L500.2900, L100.0200 #### [facility] [address] [place], [address] MCV (RBC) [Entitic vol] 91.5 fL Normal 81-99 [facility] Comment on above: Order Comment: SEND, LIPID, CMP, CBC TO Performed By: #### L 400.0100, L500.2900, L100.0200 #### [facility] [address] [place], [address] Monocytes/100 WBC (Bld) 5.1 % Normal 0-10 [facility] Comment on above: Order Comment: SEND, LIPID, CMP, CBC TO Performed By: #### L 400.0100, L500.2900, L100.0200 #### [facility] [address] [place], [address] Neutrophils/100 WBC (Bld) 58.4 % Normal 47-70 [facility] Comment on above: Order Comment: SEND, LIPID, CMP, CBC TO Performed By: #### L 400.0100, L500.2900, L100.0200 #### [facility] [address] [place], [address] NRBC # 0.00 10 3/uL Normal 0-5 [facility] Comment on above: Order Comment: SEND, LIPID, CMP, CBC TO Performed By: #### L 400.0100, L500.2900, L100.0200 #### [facility] [address] [place], [address] Nucleated RBC (Bld) [#/Vol] 0 10*3/uL Normal 0-5 [facility] Comment on above: Order Comment: SEND, LIPID, CMP, CBC TO Performed By: #### L 400.0100, L500.2900, L100.0200 #### [facility] [address] [place], [address] Platelet mean volume (Bld) [Entitic vol] 9.4 fL Normal 6.2-12.0 [facility] Comment on above: Order Comment: SEND, LIPID, CMP, CBC TO Performed By: #### L 400.0100, L500.2900, L100.0200 #### [facility] [address] [place], [address] Platelets (Bld) [#/Vol] 284 10*3/uL Normal 150-450 [facility] Comment on above: Order Comment: SEND, LIPID, CMP, CBC TO Performed By: #### L 400.0100, L500.2900, L100.0200 #### [facility] [address] [place], [address] RBC (Bld) [#/Vol] 4.71 10*6/uL Normal 4.2-5.4 [facility] Comment on above: Order Comment: SEND, LIPID, CMP, CBC TO Performed By: #### L 400.0100, L500.2900, L100.0200 #### [facility] [address] [place], [address] RDW SD 41.1 fl Normal 35.1-43.9 [facility] Comment on above: Order Comment: SEND, LIPID, CMP, CBC TO Performed By: #### L 400.0100, L500.2900, L100.0200 #### [facility] [address] [place], [address] WBC (Bld) [#/Vol] 6.8 10*3/uL Normal 4.4-11.0 [facility] Comment on above: Order Comment: SEND, LIPID, CMP, CBC TO Performed By: #### L 400.0100, L500.2900, L100.0200 #### [facility] [address] [place], [address] CBC-Complete Blood Cnt No Di polo 05-30-2025 HCT Normal 37-47 [facility] Comment on above: Result Comment: OVER LAP EMPH LABS Performed By: #### L 100.0500, L3300.8000, L503.0106, L501.5200, L3300.0960, L3100.1725, L501.9520 #### [facility] [address] [place], [address] HGB Normal 12.0-15.0 [facility] Comment on above: Result Comment: OVER LAP EMPH LABS Performed By: #### L 100.0500, L3300.8000, L503.0106, L501.5200, L3300.0960, L3100.1725, L501.9520 #### [facility] [address] [place], [address] MCH Normal 27.0-32.0 [facility] Comment on above: Result Comment: OVER LAP EMPH LABS Performed By: #### L 100.0500, L3300.8000, L503.0106, L501.5200, L3300.0960, L3100.1725, L501.9520 #### [facility] [address] [place], [address] MCHC Normal 32-36 [facility] Comment on above: Result Comment: OVER LAP EMPH LABS Performed By: #### L 100.0500, L3300.8000, L503.0106, L501.5200, L3300.0960, L3100.1725, L501.9520 #### [facility] [address] [place], [address] MCV Normal 81-99 [facility] Comment on above: Result Comment: OVER LAP EMPH LABS Performed By: #### L 100.0500, L3300.8000, L503.0106, L501.5200, L3300.0960, L3100.1725, L501.9520 #### [facility] [address] [place], [address] PLT Normal 150-450 [facility] Comment on above: Result Comment: OVER LAP EMPH LABS Performed By: #### L 100.0500, L3300.8000, L503.0106, L501.5200, L3300.0960, L3100.1725, L501.9520 #### [facility] [address] [place], [address] RBC Normal 4.2-5.4 [facility] Comment on above: Result Comment: OVER LAP EMPH LABS Performed By: #### L 100.0500, L3300.8000, L503.0106, L501.5200, L3300.0960, L3100.1725, L501.9520 #### [facility] [address] [place], [address] RDW CV Normal 11.6-14.6 [facility] Comment on above: Result Comment: OVER LAP EMPH LABS Performed By: #### L 100.0500, L3300.8000, L503.0106, L501.5200, L3300.0960, L3100.1725, L501.9520 #### [facility] [address] [place], [address] RDW SD Normal 35.1-43.9 [facility] Comment on above: Result Comment: OVER LAP EMPH LABS Performed By: #### L 100.0500, L3300.8000, L503.0106, L501.5200, L3300.0960, L3100.1725, L501.9520 #### [facility] [address] [place], [address] WBC Normal 4.4-11.0 [facility] Comment on above: Result Comment: OVER LAP EMPH LABS Performed By: #### L 100.0500, L3300.8000, L503.0106, L501.5200, L3300.0960, L3100.1725, L501.9520 #### [facility] [address] [place], [address] Employee Profileon 5 CHOL:HDL 2.98 Normal [facility] Comment on above: Order Comment: SEND, LIPID, CMP, CBC TO Performed By: #### L 400.0100, L500.2900, L100.0200 #### [facility] [address] [place], [address] Cholesterol [Mass/Vol] 228 mg/dL High <=200 [facility] Comment on above: Order Comment: SEND, LIPID, CMP, CBC TO Result Comment: Chol esterol level, Desirable <200 mg/dL Borderline high cholesterol 200-239 mg/dL High cholesterol >=240 mg/dL Recommendations of the NCEP Adult Treatment Panel for the following risk-cutoff thresholds for the [place] population. Performed By: #### L 400.0100, L500.2900, L100.0200 #### [facility] [address] [place], [address] Cholesterol in HDL [Mass/Vol] 77 mg/dL Normal [facility] Comment on above: Order Comment: SEND, LIPID, CMP, CBC TO Result Comment: Shannan onal Cholesterol Education Program (NCEP) guidelines: <40 mg/dL: Low HDL-cholesterol (major risk factor for CHD) >= 60 mg/dL: High HDL-cholesterol (negative risk factor for CHD) HDL-cholesterol is affected by a number of factors, e.g. smoking, exercise, hormones, sex and age. Performed By: #### L 400.0100, L500.2900, L100.0200 #### [facility] [address] [place], [address] Cholesterol in LDL [Mass/Vol] 130 mg/dL Normal [facility] Comment on above: Order Comment: SEND, LIPID, CMP, CBC TO Result Comment: Bord iqqpyg=160-922 mg/dL Higher Izij=963 mg/dL or greater Friedwald Equation for LDL-C Performed By: #### L 400.0100, L500.2900, L100.0200 #### [facility] [address] [place], [address] Cholesterol in VLDL [Mass/Vol] 21 mg/dL Normal 5-40 [facility] Comment on above: Order Comment: SEND, LIPID, CMP, CBC TO Performed By: #### L 400.0100, L500.2900, L100.0200 #### [facility] [address] [place], [address] LDH 135 U/L Normal 84-246 [facility] Comment on above: Order Comment: SEND, LIPID, CMP, CBC TO Performed By: #### L 400.0100, L500.2900, L100.0200 #### [facility] [address] [place], [address] Phosphate [Mass/Vol] 2.4 mg/dL Low 2.7-4.5 [facility] Comment on above: Order Comment: SEND, LIPID, CMP, CBC TO Performed By: #### L 400.0100, L500.2900, L100.0200 #### [facility] [address] [place], [address] Triglyceride [Mass/Vol] 106 mg/dL Normal [facility] Comment on above: Order Comment: SEND, LIPID, CMP, CBC TO Result Comment: The drugs N-Acetylcysteine and Metamizole may falsely depress this assay. Normal range: <150 mg/dL Borderline High: 150-199 mg/dL High: 200-499 mg/dL Very High: >500 mg/dL Performed By: #### L 400.0100, L500.2900, L100.0200 #### [facility] [address] [place], [address] URIC 3.5 mg/dL Normal 2.6-6.0 [facility] Comment on above: Order Comment: SEND, LIPID, CMP, CBC TO Result Comment: The drugs N-Acetylcysteine and Metamizole may falsely depress this assay. Performed By: #### L 400.0100, L500.2900, L100.0200 #### [facility] [address] [place], [address] Magnesiumon 05-30-2025 Magnesium [Mass/Vol] 2.3 mg/dL High 1.5-2.2 [facility] Comment on above: Performed By: #### L 100.0500, L3300.8000, L503.0106, L501.5200, L3300.0960, L3100.1725, L501.9520 #### [facility] [address] [place], [address] Thyroid Stim Hormone (TSH)on 05-30-2025 TSH 1.920 uIU/mL Normal 0.300-4.200 [facility] Comment on above: Performed By: #### L 100.0500, L3300.8000, L503.0106, L501.5200, L3300.0960, L3100.1725, L501.9520 #### [facility] [address] [place], [address] Urinalysis, Employeeon 05-30 BILIRUBIN URINE Negative Normal Negative [facility] Comment on above: Order Comment: CLEAN CATCH Performed By: #### L 400.0100, L500.2900, L100.0200 #### [facility] [address] [place], [address] Clarity (U) Clear Normal Clear [facility] Comment on above: Order Comment: CLEAN CATCH Performed By: #### L 400.0100, L500.2900, L100.0200 #### [facility] [address] [place], [address] Color (U) Yellow Normal Yellow [facility] Comment on above: Order Comment: CLEAN CATCH Performed By: #### L 400.0100, L500.2900, L100.0200 #### [facility] [address] [place], [address] GLUCOSE, UR Normal Normal Normal [facility] Comment on above: Order Comment: CLEAN CATCH Performed By: #### L 400.0100, L500.2900, L100.0200 #### [facility] [address] [place], [address] KETONE UR Negative Normal Negative [facility] Comment on above: Order Comment: CLEAN CATCH Performed By: #### L 400.0100, L500.2900, L100.0200 #### [facility] [address] [place], [address] LEUK ESTERASE 25 /ul Abnormal Negative [facility] Comment on above: Order Comment: CLEAN CATCH Performed By: #### L 400.0100, L500.2900, L100.0200 #### [facility] [address] [place], [address] Nitrite Ql (U) Negative Normal Negative [facility] Comment on above: Order Comment: CLEAN CATCH Performed By: #### L 400.0100, L500.2900, L100.0200 #### [facility] [address] [place], [address] OCCULT BLOOD-UR Negative Normal Negative [facility] Comment on above: Order Comment: CLEAN CATCH Performed By: #### L 400.0100, L500.2900, L100.0200 #### [facility] [address] [place], [address] pH UR 7.0 Normal 5.0 - 8.0 [facility] Comment on above: Order Comment: CLEAN CATCH Performed By: #### L 400.0100, L500.2900, L100.0200 #### [facility] [address] [place], [address] PROT DIPSTX 15 mg/dl Abnormal Negative [facility] Comment on above: Order Comment: CLEAN CATCH Performed By: #### L 400.0100, L500.2900, L100.0200 #### [facility] [address] [place], [address] SP.GR. DIPSTX 1.015 Normal 1.002-1.030 [facility] Comment on above: Order Comment: CLEAN CATCH Performed By: #### L 400.0100, L500.2900, L100.0200 #### [facility] [address] [place], [address] UROBILI Normal Normal Normal [facility] Comment on above: Order Comment: CLEAN CATCH Performed By: #### L 400.0100, L500.2900, L100.0200 #### [facility] [address] [place], [address] Vitamin B12on 05-30-2025 Cobalamin (Vitamin B12) [Mass/Vol] 270 pg/mL Normal 180-914 [facility] Comment on above: Performed By: #### L 100.0500, L3300.8000, L503.0106, L501.5200, L3300.0960, L3100.1725, L501.9520 ####[facility] [address] [place], [address] Neurology Visit Reporton Neurology Visit Report [facility] [address] [place] [address], [address] [place] [address] OFFICE VISIT Date of Service: 05/20/25 MR#: [id number] Acct: [id number] Name: MIRELA MARTINEZ Rep #: [id number] : 1990 Provider: Dr. Carloz tavares MD Age/Sex: 35/F Location: [facility] [place]. Status: Signed with Addenda ADDENDUM by Dr. [...] no longer listed on her medication list. 05/20/25838 Date Carloz Canela MD cc: * Signed HPI HPI Chief Complaint: Details: Interim History: Mirela returns [...] are p (more content not included)... Normal [facility] MR/BMS.BPon 02-26-2025 MR/BMS.BP [address], [address] [place] [address] OFFICE VISIT Date of Service: 02/26/25 MR#: [id number] Acct: [id number] Name: MIRELA MARTINEZ Rep #: [id number] : 1990 Provider: Dr. Cody Saez se, DO Age/Sex: 35/F Location: [facility] [place] Status: Signed Intake Vital Signs 11/26/24 06:56 [...] 30 days #30 caps 02/1402/26/25 Rx (Vyvanse) COUNTS INCLUDE 234 BEDS AT THE [facility] Medical History (Updated 09/04/24 @ 09:[address] Cody Membreno, DO) ADHD Selective serotonin reuptake inhibitor (SSRI) [...] has been good. Will be going to [place] in near future for a memorial service [...] Attention intac (more content not included)... Normal [facility] MR/BMS.BPon 11-26-2024 MR/[place] [address] OFFICE VISIT Date of Service: 11/26/24 MR#: [id number] Acct: [id number] Name: MIRELA MARTINEZ Rep #: [id number] : 1990 Provider: Dr. Cody Saez se DO Age/Sex: 34/F Location: [facility] [place] Status: Signed Intake Vital Signs 09/04/24 07:00 [...] 30 days #30 caps 11/1711/26/24 Rx (Vyvanse) COUNTS INCLUDE 234 BEDS AT THE [facility] Medical History (Updated 09/04/24 @ 09:[address] Cody Membreno, DO) ADHD Selective serotonin reuptake inhibitor (SSRI) [...] somewhat better. Did just get back from [place] last week after spending a week with [...] no delusions (more content not included)... Normal [facility] Re-Evaluation - PT (1)on Re-Evaluation - PT (1) [facility] [address] [place] [address]. [address] [place] [address] / REEVALUATION / MEDICARE RECERTIFICATION PHYSICAL THERAPY MR#: [id number] Acct: [id number] Name: MIRELA MARTINEZ Rep #: [id number] : 1990 34 From: Fidel Woods PT, ATC Referring Dr.: Dr. Subha Mcmahon DO Status:REG RCR Insurance: [employer]/[facility] SELF PAY INSURANCE Re-Evaluation Intro: Dr. Subha Mcmahon, DO, It has been my pleasure to [...] do not hesitate to contact me at [phone] by phone or if you have questions or concerns regarding this new plan of care! Sincerely, Fidel Woods, PT, ATC 11/13/24 1703 CC: Dr. Subha Mcmahon DO [facility] Signed For Medicare only, by signing this I certify the plan of care. Physicians Signature Date Normal [facility] Re-Evaluation - PT (1)on Re-Evaluation - PT (1) [facility] [address] [place] [address] / REEVALUATION / MEDICARE RECERTIFICATION PHYSICAL THERAPY MR#: [id number] Acct: [id number] Name: MIRELA MARTINEZ Rep #: [id number] : 1990 34 From: Fidel Woods PT, ATC Referring Dr.: Dr. Subha Mcmahon DO Status:REG RCR Insurance: [employer]/[facility] SELF PAY INSURANCE Re-Evaluation Intro: Dr. Subha [...] do not hesitate to contact me at [phone] by phone or if you have questions or concerns regarding this new plan of care! Sincerely, Fidel Woods, PT, ATC 10/18/24 1804 CC: Dr. Subha Mcmahon DO [facility] Signed For Medicare only, by signing this I certify the plan of care. Physicians Signature Date Normal [facility] MR/BMS.BPon 09-04-2024 MR/BMS.BP [address], [address] [place] [address] OFFICE VISIT Date of Service: 09/04/24 MR#: [id number] Acct: [id number] Name: MIRELA MARTINEZ Rep #: [id number] : 1990 Provider: Dr. Cody Saez se, DO Age/Sex: 34/F Location: [facility] [place] Status: Signed Intake Vital Signs 07/16/24 07:41 [...] PO DAILY For concentrating 05/28/24 09/04/24 History (Yousif) duloxetine 30 mg capsule,delayed 30 mg PO [...] 09/04/24 @ 09:[address] Cody Membreno, DO) ADHD Selective serotonin reuptake inhibitor (SSRI) [...] and coher (more content not included)... Normal [facility] Urine Cultureon 08-30-2024 URC Culture exhibits no growth. Normal [facility] Comment on above: Performed By: #### M 100.2200 #### [facility] [address] [place], [address] Neurology Visit Reporton Neurology Visit Report [facility] [address], [address] [place] [address] OFFICE VISIT Date of Service: 08/21/24 MR#: [id number] Acct: [id number] Name: MIRELA MARTINEZ Rep #: [id number] : 1990 Provider: Dr. Carloz tavares MD Age/Sex: 34/F Location: [facility] Status: Signed HPI HPI Chief Complaint: Establish [...] severity sinc (more content not included)... Normal [facility] Cervical or vagninal specime n microscopic examination by cytology stain (reported ason 07-29-2022 Cytology report Cyto stain Doc (Cvx/Vag) Comment . [facility] Work Phone: Comment on above: The Pap [...] DNA Probe+sig amp Ql (Cvx) Negative Negative [facility] Work Phone: Comment on above: This nucleic acid am plification test detects fourteen high- risk HPV types (16,18,31,33,35,39,45,51,52,56,58,59,66,68)without differentiation.Performed at: [facility] [id number] Director: Jacki Nelson MD, Phone: [phone] at: =[facility] [id number] Director: Jacki Nelson MD, Phone: [phone] Laboratory - Cytologyon 07-17 Extracorporeal Technician Cyto stain Nom (Cvx/Vag) [ID] Comment . [facility] Work Phone: Comment on above: Dominguez Woodward , Hybrid Corn Breeder (ASCP) Laboratory - Miscellaneous t estson 07-29-2022 Service comment (Unsp spec) [Interp] Comment . [facility] Work Phone: Comment on above: This liquid based Th inPrep(R) pap test was screened withthe use of an image guided system. Service comment (Unsp spec) [Interp] . . [facility] Work Phone: No Panel Informationon 07-29 Pathology report final diagnosis Narrative Comment . [facility] Work Phone: Comment on above: NEGATIVE FOR INTRAEP ITHELIAL LESION OR MALIGNANCY. No Panel Informationon 06-17 POC SARS CoV-2 Antigen Negative [facility] Work Phone: Absolute lymphocyte counton 05-26-2022 Lymphocytes Auto (Unsp spec) [#/Vol] 3.86 10*3/uL 0.83-4.51 [facility] Work Phone: Absolute reticulocyte counto n 05-26-2022 Reticulocytes (Bld) [#/Vol] 0.00 10*3/uL 0-5 [facility] Work Phone: Basophil percentageon 2021 Basophil percentage 3.2 mg/dL 2.5-4.9 [facility] Work Phone: Bilirubin [Mass/Vol] 0.60 mg/dL 0.20-1.00 [facility] Work Phone: Comment on above: For patients on eltr ombopag therapy, use of Dimension [place] TBIL is not recommended. Chloride [Moles/Vol] 108 mmol/L 98-107 [facility] Work Phone: Cholesterol [Mass/Vol] 215 mg/dL <200 [facility] Work Phone: Comment on above: <200 mg/dL Desirable 200-240 mg/dL Borderline >240 mg/dL High Risk Glucose [Mass/Vol] 112 mg/dL 74-106 [facility] Work Phone: Comment on above: Fasting Glucose resu lt from 100 to 125 mg/dL suggests IMPAIRED HOMEOSTASIS per A.D.A. criteria. Neutrophils (Bld) [#/Vol] 8.9 10*3/uL 2.0-7.7 [facility] Work Phone: Potassium [Moles/Vol] 4.0 mmol/L 3.5-5.1 [facility] Work Phone: Protein [Mass/Vol] 7.6 g/dL 6.4-8.2 [facility] Work Phone: Sodium [Moles/Vol] 139 mmol/L 136-145 [facility] Work Phone: Triglyceride [Mass/Vol] 116 mg/dL <199 [facility] Work Phone: Comment on above: The drugs N-Acetylcy steine and Metamizole may falsely depress this assay.Serum Triglycerides Reference Interval Normal <150 mg/dL Borderline high 150 - 199 mg/dL High 200 - 499 mg/dL Very High > or = 500 mg/dL WBC (Bld) [#/Vol] 14.1 10*3/uL 4.4-11.0 [facility] Work Phone: Bilirubin Test strip Ql (U)o n 05-26-2022 Bilirubin Ql (U) Negative Negative [facility] Work Phone: Blood erythrocytes count (nu mber/volume)on 05-26-2022 RBC (Bld) [#/Vol] 5.04 10*6/uL 4.2-5.4 [facility] Work Phone: Blood hemoglobin measurement (mass/volume)on 05-26-2022 Hemoglobin (Bld) [Mass/Vol] 13.9 g/dL 12.0-15.0 [facility] Work Phone: Blood platelet mean volumeon 05-26-2022 Platelet mean volume (Bld) [Entitic vol] 8.9 fL 6.2-12.0 [facility] Work Phone: Determination of erythrocyte mean corpuscular volume (MCV)on 05-26-2022 MCV (RBC) [Entitic vol] 85.5 fL 81-99 [facility] Work Phone: Direct bilirubinon 2 Bilirubin.direct [Mass/Vol] 0.16 mg/dL 0.00-0.30 [facility] Work Phone: Hematocrit Auto (Bld) [Volum e fraction]on 05-26-2022 Hematocrit (Bld) [Volume fraction] 43.1 % 37-47 [facility] Work Phone: Ketones Test strip Ql (U)on 05-26-2022 Ketones Ql (U) Negative Negative [facility] Work Phone: Laboratory - Chemistry and C hemistry - challengeon 05-26-2022 ALP [Catalytic activity/Vol] 161 U/L 45-117 [facility] Work Phone: ALT [Catalytic activity/Vol] 19 U/L 13-56 [facility] Work Phone: Cholesterol.total/ Cholesterol in HDL [Mass ratio] 3.60 {ratio} [facility] Work Phone: CO2 [Moles/Vol] 23.0 mmol/L 21.0-32.0 [facility] Work Phone: Globulin (S) [Mass/Vol] 4.1 g/dL 2.2-4.2 [facility] Work Phone: Urea nitrogen/Creatinin e [Mass ratio] 16.6 mg/mg 10-20 [facility] Work Phone: Laboratory - Hematology and Cell countson 05-26-2022 Erythrocyte distribution width (RBC) [Entitic vol] 40.4 fL 35.1-43.9 [facility] Work Phone: Erythrocyte distribution width (RBC) [Ratio] 13.2 % 11.6-14.6 [facility] Work Phone: MCH (RBC) [Entitic mass] 27.6 pg 27.0-32.0 [facility] Work Phone: Nucleated RBC/100 WBC (Bld) [Ratio] 0 % 0-5 [facility] Work Phone: MCHC Auto (RBC) [Mass/Vol]on 05-26-2022 MCHC (RBC) [Mass/Vol] 32.3 g/dL 32-36 [facility] Work Phone: Nitrite Test strip Ql (U)on 05-26-2022 Nitrite Ql (U) Negative Negative [facility] Work Phone: No Panel Informationon 05-26 Estimated GFR (MDRD) Amer 110 mL/min >60 [facility] Work Phone: Comment on above: GFR Calc Estimated GFR (MDRD) Non-Af Amer 91 mL/min >60 [facility] Work Phone: Comment on above: Non- GFR Calc Platelets bldon 05-26-2022 Platelets (Bld) [#/Vol] 336 10*3/uL 150-450 [facility] Work Phone: Protein Test strip Ql (U)on 05-26-2022 Protein Ql (U) Negative Negative [facility] Work Phone: Segmented neutrophils/100 WB C Auto (Bld)on 05-26-2022 Segmented neutrophils/100 WBC (Bld) 63.1 % 47-70 [facility] Work Phone: Serum or plasma albumin ruben urement (mass/volume)on 05-26-2022 Albumin [Mass/Vol] 3.5 g/dL 3.2-5.0 [facility] Work Phone: Serum or plasma albumin/glob ulin mass ratioon 05-26-2022 Albumin/Globulin [Mass ratio] 0.9 {ratio} 0.9-2.4 [facility] Work Phone: Serum or plasma calcium ruben urement (mass/volume)on 05-26-2022 Calcium [Mass/Vol] 8.9 mg/dL 8.5-10.1 [facility] Work Phone: Serum or plasma cholesterol in HDL measurement (mass/volume)on 05-26-2022 Cholesterol in HDL [Mass/Vol] 59 mg/dL >40 [facility] Work Phone: Comment on above: The drugs N-Acetylcy steine and Metamizole may falsely depress this assay. Reference Range HDL <40 mg/dL Low HDL Cholesterol HDL >or= 60 mg/dL High HDL Cholesterol Serum or plasma cholesterol in VLDL measurement (mass/volume)on 05-26-2022 Cholesterol in VLDL [Mass/Vol] 23 mg/dL 5-40 [facility] Work Phone: Serum or plasma creatinine m easurement (mass/volume)on 05-26-2022 Creatinine [Mass/Vol] 0.78 mg/dL 0.55-1.02 [facility] Work Phone: Comment on above: The validity of the calculated GFR & GFRAA in patients over 70 years has not been determined. Clinical correlation is essential. Serum or plasma low density lipoprotein (LDL) cholesterol measurement (mass/volume)on 05-26-2022 Cholesterol in LDL [Mass/Vol] 133 mg/dL 0-130 [facility] Work Phone: Serum or plasma urea nitroge n measurement (mass/volume)on 05-26-2022 Urea nitrogen [Mass/Vol] 13 mg/dL 7-18 [facility] Work Phone: Serum or plasma uric acid me asurement (mass/volume)on 05-26-2022 Urate [Mass/Vol] 3.9 mg/dL 2.6-6.0 [facility] Work Phone: Comment on above: The drugs N-Acetylcy steine and Metamizole may falsely depress this assay. Thin prep Papanicolaou smear with manual screeningon 05-26-2022 Thin prep Papanicolaou smear with manual screening 22 U/L 15-37 [facility] Work Phone: Thin prep Papanicolaou smear with manual screening 8 5-15 [facility] Work Phone: Thin prep Papanicolaou smear with manual screening 184 U/L 84-246 [facility] Work Phone: Urine blood detectionon 05-17 RBC Ql (U) Negative Negative [facility] Work Phone: Urine clarityon 05-26-2022 Clarity (U) Sl. Cloudy Clear [facility] Work Phone: Urine color determinationon 05-26-2022 Color (U) Yellow Yellow [facility] Work Phone: Urine glucose detectionon Glucose Ql (U) Normal mg/dl Normal [facility] Work Phone: Urine leukocyte esterase det ection by dipstickon 05-26-2022 Leukocyte esterase Test strip Ql (U) 25 /ul Negative [facility] Work Phone: Urine pHon 05-26-2022 pH (U) 7.0 [pH] 5.0 - 8.0 [facility] Work Phone: Urine specific gravity measu rementon 05-26-2022 Specific gravity (U) [Rel density] 1.010 1.002-1.030 [facility] Work Phone: Urobilinogen Auto test strip Ql (U)on 05-26-2022 Urobilinogen Ql (U) Normal mg/dl Normal [facility] Work Phone: Office Visit: UC: maxillary sinusitison 08-24-2017 Documentation of current medications (procedure) Done Invalid Interpretation Code [facility] Work Phone: Fall risk assessment No Invalid Interpretation Code [facility] Work Phone: Tobacco smoking status NHIS Never Invalid Interpretation Code [facility] Work Phone: Tobacco use CPHS Never smoker Invalid Interpretation Code [facility] Work Phone: Office Visiton 06-30-2015 Smoking cessation education (procedure) yes Invalid Interpretation Code [facility] Work Phone: Office Visit: Initial Visito n 08-17-2014 General categories [Interpretation] of Cervical or vaginal smear or scraping by Cyto stain Normal Invalid Interpretation Code [facility] Work Phone: Vital Signs Date Time Vital Sign Value Performing Clinician Kali stoddard 07-29-2022 08:40-0400 Body height 180.[address] Subha Mcmahon Work Phone: [facility] Work Phone: 07-29-2022 08:40-0400 Body mass index (BMI) [Ratio] 41.1 kg/m2 Dr. Subha Mcmahon Work Phone: [facility] Work Phone: 07-29-2022 08:40-0400 Body weight 133.[address] Subha Mcmahon Work Phone: [facility] Work Phone: 07-29-2022 08:40-0400 Diastolic blood pressure 83 mm[Hg] Dr. Subha Mcmahon Work Phone: [facility] Work Phone: 07-29-2022 08:40-0400 Systolic blood pressure 139 mm[Hg] Dr. Subha Mcmahon Work Phone: [facility] Work Phone: 06-17-2022 15:34-0400 Body temperature 98 [degF] Dr. Subha Mcmahon Work Phone: [facility] Work Phone: 06-17-2022 15:34-0400 Diastolic blood pressure 82 mm[Hg] Dr. Subha Mcmahon Work Phone: [facility] Work Phone: 06-17-2022 15:34-0400 Heart rate 100 /min Dr. Subha Mcmahon Work Phone: [facility] Work Phone: 06-17-2022 15:34-0400 Respiratory rate 14 /min Dr. Subha Mcmahon Work Phone: [facility] Work Phone: 06-17-2022 15:34-0400 SaO2% (BldA) [Mass fraction] 98 % Dr. Subha Mcmahon Work Phone: [facility] Work Phone: 06-17-2022 15:34-0400 Systolic blood pressure 120 mm[Hg] Dr. Subha Mcmahon Work Phone: [facility] Work Phone: 04-14-2022 15:35-0400 Body temperature 97.5 [degF] Dr. Subha Mcmahon Work Phone: [facility] Work Phone: 04-14-2022 15:35-0400 Diastolic blood pressure 78 mm[Hg] Dr. Subha Mcmahon Work Phone: [facility] Work Phone: 04-14-2022 15:35-0400 Heart rate 88 /min Dr. Subha Mcmahon Work Phone: [facility] Work Phone: 04-14-2022 15:35-0400 Respiratory rate 16 /min Dr. Subha Mcmahon Work Phone: [facility] Work Phone: 04-14-2022 15:35-0400 SaO2% (BldA) [Mass fraction] 99 % Dr. Subha Mcmahon Work Phone: [facility] Work Phone: 04-14-2022 15:35-0400 Systolic blood pressure 132 mm[Hg] Dr. Subha Mcmahon Work Phone: [facility] Work Phone: 08-24-2017 10:47-0500 BMI (Body Mass Index) 31.31 kg/m2 Cecilia Witt LPN [facility] Work Phone: 08-24-2017 10:47-0500 Body Temperature 98.7 [degF] Cecilia Witt LPN [facility] Work Phone: 08-24-2017 10:47-0500 BP Diastolic 82 mm[Hg] Cecilia Witt LPN [facility] Work Phone: 08-24-2017 10:47-0500 BP Systolic 114 mm[Hg] Cecilia Witt LPN [facility] Work Phone: 08-24-2017 10:47-0500 Height 177.8 cm Cecilia Witt LPN [facility] Work Phone: 08-24-2017 10:47-0500 Pulse (Heart Rate) 81 /min Cecilia Witt LPN [facility] Work Phone: 08-24-2017 10:47-0500 Respiratory Rate 13 /min Cecilia Witt LPN [facility] Work Phone: 08-24-2017 10:47-0500 Weight 98.98 kg Cecilia Witt LPN [facility] Work Phone: 09-10-2015 10:19-0500 BSA (Body Surface Area) 2.12 m2 Cecilia Witt LPN [facility] Work Phone: Encounters Encounter Date Encounter Type Care Provider Facility Start: 08-19-2025 ambulatory Subha Malys Facility:[facility] Start: 06-04-2025 End: 06-04-2025 ambulatory Cody L Seese Facility:[facility] Start: 05-30-2025 ambulatory Health Risk Assessment Facility:[facility] Start: 05-30-2025 End: 05-30-2025 ambulatory Subha Malys Facility:[facility] Start: 05-20-2025 End: 05-20-2025 ambulatory Subha Malys Facility:[facility] Start: 02-26-2025 End: 02-26-2025 ambulatory Cody L Seese Facility:[facility] Start: 11-26-2024 End: 11-26-2024 ambulatory Cody L Seese Facility:[facility] Start: 11-13-2024 End: 11-13-2024 ambulatory Subha Mcmahon Facility:[facility] Start: 09-04-2024 End: 09-04-2024 ambulatory Cody Diehl Temi Facility:[facility] Start: 08-29-2024 End: 08-29-2024 ambulatory Subha Mcmahon Facility:[facility] Start: 08-21-2024 End: 08-21-2024 ambulatory Subha Mcmahon Facility:[facility] Start: 07-29-2022 End: 07-29-[address] Subha Mcmahon Work Phone: [facility] Work Phone: Start: 07-29-2022 End: 07-29-[address] [facility] Start: 07-29-2022 End: 07-29-[address] Subha Mcmahon Work Phone: [facility] Start: 06-17-2022 End: 06-17-[address] Subha Mcmahon Work Phone: [facility] Start: 05-26-[address] Subha ewing Work Phone: [facility] Start: 04-14-2022 End: 04-14-[address] Subha Mcmahon Work Phone: [facility] Procedures Date Procedure Procedure Detail Performing Clinician Start: 07-13-2017 End: 07-13-2017 [facility] Cody Mena Work Phone: Plan of Treatment Date Care Activity Detail Author Start: 08-24-2017 End: 08-24-2017 Appointment [facility] Work Phone: Start: 05-19-2016 End: 05-19-2016 Radex ankle complete minimum 3 views X-Ray, Ankle [facility] Work Phone: Start: 05-19-2016 End: 05-19-2016 Radex foot complete minimum 3 views X-Ray, Foot [facility] Work Phone: Start: 10-04-2014 End: 10-04-2014 Thyroid stimulating hormone (TSH) *TSH [facility] Work Phone: Immunizations Immunization Date Immunization Notes Care Provider Chris yañez 07-30-2021 influenza, seasonal, injectable Dr. Subha Mcmahon Work Phone: [facility] Work Phone: 11-17-2020 Covid (Moderna) Dr. Subha luna Work Phone: [facility] Work Phone: 10-20-2020 Covid (Moderna) Dr. Subha luna Work Phone: [facility] Work Phone: 07-15-2020 influenza, seasonal, injectable Dr. Subha Mcmahon Work Phone: [facility] Work Phone: 08-20-2019 influenza, seasonal, injectable Dr. Subha Mcmahon Work Phone: [facility] Work Phone: 08-16-2018 influenza, seasonal, injectable Dr. Subha Mcmahon Work Phone: [facility] Work Phone: 07-13-2017 influenza, seasonal, injectable Dr. Subha Mcmahon Work Phone: [facility] Work Phone: 07-15-2016 influenza, seasonal, injectable Dr. Subha Mcmahon Work Phone: [facility] Work Phone: 07-17-2015 influenza, seasonal, injectable Dr. Subha Mcmahon Work Phone: [facility] Work Phone: 07-11-2014 influenza, seasonal, injectable Dr. Subha Mcmahon Work Phone: [facility] Work Phone: Payers Date Payer Category Payer Self-pay [id number] 2023 Unknown [id number] Unknown [facility] [id number] Unknown [id number] Unknown [id number] Unknown [id number] Unknown [id number] Unknown [id number] Unknown [id number] Unknown [id number] Unknown [id number] Unknown [id number] Unknown [id number] Unknown [id number] Social History Date Type Detail Facility [facility]: [facility] Work Phone: Start: 1990 Sex Assigned At Female [facility] Work Phone: Clinical Note 07-29-2022 Note Date & Type Note Facility 07-29-2022 Note [facility] Work Phone: Pap Smear Specimen Adequacy July [...] Encounter for routine gyneco logical examination noneactive [facility] Work Phone: Chief Complaint and Reason for Visit Chief Complaint COVID POS 04/06/COUG H/STILL SICK HRA ANTIGEN FOR TRAVEL Annual (LEAD DIE MOLDER) ANNUAL THIN PREP Reason for Visit Acute [...] Date/ Time Living Will No October 19 2 9:27am Power of Learning [employer] Instructor No October 19 022 9:27am Summary Purpose Additional Source Comments Goals (unrecognized section and content) Goals may be documented in a n alternate section INFORMATION SOURCE (unrecogn ized section and content) DATE CREATED AUTHOR 08/15/[address] [facility] FOR RECORDS PERTAINING TO PATIENTS WHO [...] BE BASED ON THE PRIMARY CLINICAL RECORDS. [employer] provides no warranty or guarantee of the accuracy or completeness of information in this document.
[2025-08-21 06:08] LABS: Chlamydia By Nucleic Acid AMP Negative (Negative); Gonococcus By Nucleic Acid AMP Negative (Negative)
[2025-08-27 14:09] LABS: HPV APTIMA, High Risk Negative (Negative)
== END | disposition home or self-care (01) ==
LOC: BWCLAB 11:29
PROVIDERS: PCP Family Medicine; Visit Provider Obstetrics & Gynecology
DX: Z11.3 Encounter for screening for infections with a predominantly sexual mode of transmission (principal); N89.8 Other specified noninflammatory disorders of vagina; Z12.4 Encounter for screening for malignant neoplasm of cervix
CPT/HCPCS: 87070; 87205; 87491; 87591; 87624; 88175; G0145